=== PATIENT | female | born 1965 | race African-American/Black ===

== ENCOUNTER → 2016-05-18 | Outpatient (CLI) | payer MEDICAID ==
--- NOTE | 2016-05-18 16:25 | WOMENS IMAGING REPORT ---
EXAM DESCRIPTION: BILAT SCREENING MAMMO W/CAD COMPLETED DATE/TIME: 05/18/2016 11:05 am REASON FOR STUDY: Z12.31 ROUTINE SCREENING MAMMO Z12.31 ENCNTR SCREEN MAMMOGRAM FOR MALIGNANT NEOPL ASM OF FORTUNATO COMPARISON: None. TECHNIQUE: Standard craniocaudal and mediolateral oblique views of each breast recorded using Luminescenta l acquisition. LIMITATIONS: None. FINDINGS: No masses, calcifications or architectural distortion. No areas of suspicion. Read with the assistance of CAD. .[facility] - R2 Cenova Version 1.3 .[facility] - R2 Cenova Version 1.3 .[facility] - R2 Cenova Version 2.4 .[facility] [place] Cenova Version 2.4 .[facility] - R2 Animal Care Attendant Version 9.2 BREAST DENSITY: b. There are scattered areas of fibroglandular density. BIRAD: 1 NEGATIVE RECOMMENDATION: ROUTINE SCREENING COMMENT: PATIENT NOTIFIED BY LETTER. The [employer] recommends an annual screening mammogram for women aged 40 years or over. Each patient will receive a reminder prior to the anniversary date of her mammogram. The [employer] (ACR) has developed recommendations for screening MRI of the breast s in certain patient populations, to be used in conjunction with mammography. Breast MRI surveillanc e may be appropriate for women with more than 20% lifetime risk of developing breast cancer as deter mined by genetic testing, significant family history of the disease, or history of mantle radiation f or Hodgkins Disease. ACR Practice Guidelines 2008. TECHNICAL DOCUMENTATION: FINDING NUMBER: (1) ASSESSMENT: (1) JOB ID: [id number] [employer]- All Rights Reserved
== END ==
LOC: WI 10:42
PROVIDERS: ATTEND Internal Medicine
DX: Z12.31 Encounter for screening mammogram for malignant neoplasm of breast (principal)
CPT/HCPCS: 77067; G0202

== ENCOUNTER 2017-06-07 13:09 | Observation (INO) | payer MEDICAID ==
[2017-06-07 14:35] LABS: ABSOLUTE EOSINOPHILS # (AUTO) 0.1 10^3/uL (0.0-0.6); ABSOLUTE LYMPHOCYTES (AUTO) 1.9 10^3/uL (0.5-4.7); ABSOLUTE MONOCYTES (AUTO) 0.7 10^3/uL (0.1-1.4); ABSOLUTE NEUT (AUTO) 3.2 10^3/uL (1.7-8.2); BASOPHILS % (AUTO) 0.6 % (0-2); EOSINOPHILS % (AUTO) 1.2 % (0-6); HEMATOCRIT 39.8 % (36.0-47.0); HEMOGLOBIN 13.1 g/dL (12.0-15.5); LYMPHOCYTES % (AUTO) 31.7 % (13-45); MEAN CORPUSCULAR HEMOGLOBIN 30.7 pg (27.0-33.4); MEAN CORPUSCULAR VOLUME 93 fl (80-97); MONOCYTES % (AUTO) 11.4 % (3-13); PLATELET COUNT 272 10^3/uL (150-450); RED BLOOD COUNT 4.27 10^6/uL (3.72-5.28); RED CELL DISTRIBUTION WIDTH 14.7 % (11.5-14.0); SEGMENTED NEUTROPHILS % (AUTO) 55.1 % (42-78); TOTAL CELLS COUNTED % (AUTO) 100 %; WHITE BLOOD COUNT 5.9 10^3/uL (4.0-10.5)
[2017-06-07 14:52] LABS: ALANINE AMINOTRANSFERASE 30 U/L (9-52); ALBUMIN 4.1 g/dL (3.5-5.0); ALKALINE PHOSPHATASE 90 U/L (38-126); ANION GAP 9 (5-19); ASPARTATE AMINO TRANSFERASE 23 U/L (14-36); BILIRUBIN,DIRECT 0.4 mg/dL (0.0-0.4); BILIRUBIN,TOTAL 0.6 mg/dL (0.2-1.3); BLOOD UREA NITROGEN 11 mg/dL (7-20); CALCIUM 8.9 mg/dL (8.4-10.2); CARBON DIOXIDE 28 mmol/L (22-30); CHLORIDE 103 mmol/L (98-107); CHOLESTEROL 163.25 mg/dL (0-200); GLUCOSE 147 mg/dL (75-110); POTASSIUM 4.2 mmol/L (3.6-5.0); SODIUM 140.3 mmol/L (137-145); TOTAL PROTEIN 7.9 g/dL (6.3-8.2); TRIGLYCERIDES 90 mg/dL (<150)
[2017-06-07 15:05] LABS: DIRECT LDL 105 mg/dL (<100)
[2017-06-07 15:13] LABS: FREE T4 (FREE THYROXINE) 1.53 ng/dL (0.78-2.19)
--- NOTE | 2017-06-07 15:24 | RADIOLOGY REPORT (SQ) ---
EXAM DESCRIPTION: CHEST SINGLE VIEW COMPLETED DATE/TIME: 06/07/2017 3:12 pm REASON FOR STUDY: Admit COMPARISON: CT chest 12/14/2014 EXAM PARAMETERS: NUMBER OF VIEWS: One view. TECHNIQUE: Single frontal radiographic view of the chest acquired. RADIATION DOSE: NA LIMITATIONS: Obese patient, AP portable lordotic technique FINDINGS: LUNGS AND PLEURA: No opacities, masses or pneumothorax. No pleural effusion. MEDIASTINUM AND HILAR STRUCTURES: No masses. Contour normal. HEART AND VASCULAR STRUCTURES: Heart normal in size. Normal vasculature. BONES: No acute findings. HARDWARE: None in the chest. OTHER: No other significant finding. IMPRESSION: NO ACUTE RADIOGRAPHIC FINDING IN THE CHEST. TECHNICAL DOCUMENTATION: JOB ID: [id number] [employer]- All Rights Reserved
[2017-06-07 15:27] LABS: THYROID STIMULATING HORMONE 0.43 uIU/mL (0.47-4.68)
[2017-06-07] MEDS ORDERED: ALBUTEROL SULFATE HFA (90 MCG/PUFF) 200 PUFF/8.5 GM MDI IH PRN (17:44)
[2017-06-07] MEDS ORDERED: (PENDING PHARMACY ID) (Canagliflozin [Invokana] 300 MG) PO SCH (17:45)
[2017-06-07] MEDS ORDERED: ISOSORBIDE MONONITRATE 30 MG TAB.ER.24H PO SCH (18:00)
[2017-06-07] MEDS ORDERED: AMLODIPINE BESYLATE 10 MG TABLET PO SCH (18:00)
[2017-06-07] MEDS ORDERED: ASPIRIN 81 MG TABLET, ENT COATED PO SCH (18:00)
--- NOTE | 2017-06-07 18:22 | EKG REPORT ---
SEVERITY:- ABNORMAL ECG - SINUS RHYTHM MULTIPLE ATRIAL PREMATURE COMPLEXES : Confirmed by: Brad De La Torre MD 07-Jun-2017 18:21:41
[2017-06-07] MEDS ORDERED: TIOTROPIUM BROMIDE DPI 5 CAP/KIT (18 MCG/CAP) IH SCH (19:00)
[2017-06-07 19:39] LABS: APPEARANCE,URINE CLOUDY; BILIRUBIN,URINE NEGATIVE (NEGATIVE); COLOR,URINE YELLOW; GLUCOSE, URINE >=500 mg/dL (NEGATIVE); KETONES,URINE TRACE mg/dL (NEGATIVE); LEUKOCYTE ESTERASE,URINE TRACE (NEGATIVE); NITRITE,URINE NEGATIVE (NEGATIVE); PROTEIN,URINE NEGATIVE (NEGATIVE); URINE SPECIFIC GRAVITY 1.035
[2017-06-07] MEDS ORDERED: ONDANSETRON HCL INJ/PF 4 MG/2 ML SDV ONE (20:40)
[2017-06-07] MEDS: ONDANSETRON HCL INJ/PF 4 MG/2 ML SDV IV PRN (20:40)
[2017-06-07] MEDS ORDERED: INFLUENZA ADLT QUAD (36MOS+) 2017-18 VAC 0.5 ML SYR IM PRN (21:27)
[2017-06-07] MEDS ORDERED: EXENATIDE INJ 10 MCG/0.04 ML 2.4 ML PEN.INJCTR SUBCUT SCH (22:00)
[2017-06-07] MEDS ORDERED: INSULIN DETEMIR 100 UNIT/ML 3 ML PEN SUBCUT SCH (22:00)
[2017-06-07] MEDS: CLOPIDOGREL BISULFATE 75 MG TABLET PO SCH (23:44)
[2017-06-07] MEDS: ATORVASTATIN CALCIUM 80 MG TABLET PO SCH (23:45)
[2017-06-07] MEDS: GABAPENTIN 300 MG CAPSULE PO SCH (23:45)
[2017-06-07] MEDS: METOPROLOL TARTRATE 25 MG TABLET PO SCH (23:46)
[2017-06-07 23:58] LABS: CREATINE KINASE MB 0.42 ng/mL (<4.55)
[2017-06-08 00:01] LABS: TROPONIN I < 0.012 ng/mL
[2017-06-08] MEDS ORDERED: DEXTROSE 40% GEL 15 GM TUBE X 2 PO PRN (00:21)
[2017-06-08] MEDS ORDERED: DEXTROSE 40% GEL 15 GM TUBE PO PRN (00:21)
[2017-06-08] MEDS ORDERED: GLUCAGON,HUMAN RECOMB 1 MG INJ IM PRN (00:21)
[2017-06-08] MEDS ORDERED: DEXTROSE 50%-WATER SYRINGE 25 GM/50 ML DOSE IV PRN (00:21)
[2017-06-08] MEDS ORDERED: DEXTROSE 50%-WATER SYRINGE 12.5 GM/25 ML DOSE IV PRN (00:21)
[2017-06-08] MEDS: GABAPENTIN 300 MG CAPSULE PO SCH ×3 (05:13→21:47)
[2017-06-08 07:32] LABS: CREATINE KINASE MB 0.29 ng/mL (<4.55)
[2017-06-08] MEDS: METFORMIN HCL 500 MG TABLET PO SCH ×2 (07:32→17:22)
[2017-06-08] MEDS: INSULIN DETEMIR 100 UNIT/ML 3 ML PEN SUBCUT SCH (07:33)
[2017-06-08] MEDS: INSULIN LISPRO 100 UNIT/ML 3 ML VIAL SUBCUT PRN ×4 (07:33→21:56)
[2017-06-08 07:34] LABS: TROPONIN I < 0.012 ng/mL
[2017-06-08] MEDS: ONDANSETRON HCL INJ/PF 4 MG/2 ML SDV IV PRN ×2 (09:15→17:21)
[2017-06-08] MEDS: ISOSORBIDE MONONITRATE 30 MG TAB.ER.24H PO SCH (10:31)
[2017-06-08] MEDS: ONDANSETRON HCL 8 MG TABLET PO SCH (10:31)
[2017-06-08] MEDS: AMLODIPINE BESYLATE 10 MG TABLET PO SCH (10:31)
[2017-06-08] MEDS: MULTIVITAMIN TABLET PO SCH (10:31)
[2017-06-08] MEDS: METOPROLOL TARTRATE 25 MG TABLET PO SCH ×2 (10:31→21:52)
[2017-06-08] MEDS: EXENATIDE INJ 10 MCG/0.04 ML 2.4 ML PEN.INJCTR SUBCUT SCH (10:31)
[2017-06-08] MEDS: TIOTROPIUM BROMIDE DPI 5 CAP/KIT (18 MCG/CAP) IH SCH (12:41)
[2017-06-08 16:38] LABS: CREATINE KINASE MB 0.34 ng/mL (<4.55); TROPONIN I < 0.012 ng/mL
[2017-06-08] MEDS ORDERED: LOPERAMIDE HCL 2 MG CAPSULE PO PRN (19:26)
--- NOTE | 2017-06-08 20:49 | PDOC H&P ---
History of Present Illness Admission Date/PCP: 06/07/17 13:18 MART BELTRAN MD History of Present Illness: JULIEN KRAFT is a 51 year old female, She came to the office for follow-up, she complained of left sided chest pain with radiation to the left upper extremities , in the office a 12-lead EKG was done it was normal sinus rhythm there was no definitive ST T-segment deviation to suggest ischemia. She has multiple risk factors for ischemic heart disease, because the symptoms she manifested was suspicious for ischemic heart disease she was admitted directly from the office into the hospital. These symptoms does not suggest unstable angina, 3 sets of cardiac enzymes are negative for acute AK but she we need a stress test for further evaluation of her symptoms. Past Medical History Cardiac Medical History: Reports: DVT, Hypertension Pulmonary Medical History: Reports: Sleep Apnea Endocrine Medical History: Reports: Diabetes Mellitus Type 2 - Insulin-dependent , Obesity GI Medical History: Reports: Gastroesophageal Reflux Disease Musculoskeltal Medical History: Reports: Arthritis Infectious Medical History: Denies: Clostridium Difficile, HIV, Methicillin-Resistant Staph Aureus, Vancomycin-Resistant Enterococci Past Surgical History Past Surgical History: Reports: Cardiac Catheterization, Tubal Ligation Social History Smoking Status: Never Smoker Frequency of Alcohol Use: None Hx Recreational Drug Use: No Hx Prescription Drug Abuse: No Family History Family History: Reviewed & Not Pertinent Parental Family History Reviewed: Yes Children Family History Reviewed: Yes Sibling(s) Family History Reviewed.: Yes Medication/Allergy Home Medications: Albuterol Sulfate [Proair Hfa Inhalation Aerosol 8.5 gm Mdi] 2 puff IH Q6HP PRN 06/07/17 Amlodipine Besylate [Norvasc 10 mg Tablet] 10 mg PO DAILY 06/07/17 Aspirin [Ecotrin 81 mg EC Tablet] 81 mg PO DAILY 06/07/17 Atorvastatin Calcium [Lipitor 80 mg Tablet] 80 mg PO QHS 06/07/17 Canagliflozin [Invokana] 300 mg PO DAILY 06/07/17 Cider Vinegar [Apple Cider Vinegar 500 mg Tablet] 1 tab PO DAILY 06/07/17 Clopidogrel Bisulfate [Plavix 75 mg Tablet] 75 mg PO DAILY 06/07/17 Exenatide [Byetta Inj 10 Mcg/0.04 ml 2.4 ml Pen.injctr] 10 mcg SUBCUT DAILY Gabapentin [Neurontin 300 mg Capsule] 300 mg PO Q8 06/07/17 Insulin Detemir [Levemir Insulin 300 Units/3 ml Insuln.pen] 10 unit SUBCUT DAILY 06/07/17 Insulin Glargine,Hum.rec.anlog [Lantus Insulin 100 Unit/1 ml 10 ml] 100 unit SUBCUT DAILY 06/07/17 Isosorbide Mononitrate [Isosorbide Mononitrate ER] 30 mg PO DAILY 06/07/17 Metformin HCl [Glucophage] 1,000 mg PO BID 06/07/17 Metoprolol Tartrate [Lopressor 25 mg Tablet] 25 mg PO Q12 06/07/17 Multivitamin [Tab-A-Art] 1 each PO DAILY 06/07/17 Ondansetron HCl [Zofran 4 mg Tablet] 8 mg PO DAILY 06/07/17 Tiotropium [place] [Spiriva Handihaler 18 mcg/dose (30 Dose)] 1 cap IH DAILY Allergies/Adverse Reactions: metformin [Metformin] Allergy (Verified 07/18/14 14:07) Diarrhea cillins Allergy (Uncoded 07/18/14 14:07) Vomiting Review of Systems Constitutional: ABSENT: chills, fever(s), headache(s), weight gain, weight loss Eyes: ABSENT: visual disturbances Ears: ABSENT: hearing changes Cardiovascular: PRESENT: chest pain Respiratory: ABSENT: cough, hemoptysis Gastrointestinal: PRESENT: diarrhea Genitourinary: ABSENT: dysuria, hematuria Musculoskeletal: ABSENT: joint swelling Integumentary: ABSENT: rash, wounds Neurological: ABSENT: abnormal gait, abnormal speech, confusion, dizziness, focal weakness, syncope Psychiatric: ABSENT: anxiety, depression, homidical ideation, suicidal ideation Endocrine: ABSENT: cold intolerance, heat intolerance, menstrual abnormalities, polydipsia, polyuria Hematologic/Lymphatic: ABSENT: easy bleeding, easy bruising, lymphadenopathy Physical Exam Vital Signs: Temp Pulse Resp BP Pulse Ox 98.3 F 88 17 112/62 98 06/08/17 15:59 06/08/17 15:59 06/08/17 15:59 06/08/17 15:59 06/08/17 15:59 Intake & Output 06/07/17 06/08/17 06/09/17 06:59 06:59 06:59 Intake Total 450 432 Output Total 0 Balance 450 432 Weight 155.3 kg 155.3 kg General appearance: PRESENT: no acute distress, well-developed, well-nourished Head exam: PRESENT: atraumatic, normocephalic Eye exam: PRESENT: conjunctiva pink, EOMI, PERRLA Ear exam: PRESENT: normal external ear exam Mouth exam: PRESENT: moist, tongue midline Neck exam: PRESENT: full ROM Respiratory exam: PRESENT: clear to auscultation dexter Cardiovascular exam: PRESENT: RRR, +S1, +S2 Vascular exam: PRESENT: normal capillary refill GI/Abdominal exam: PRESENT: normal bowel sounds, soft Rectal exam: PRESENT: deferred Neurological exam: PRESENT: alert, awake, oriented to person, oriented to place , oriented to time, oriented to situation, CN II-XII grossly intact Skin exam: PRESENT: dry, intact, warm Results Laboratory Results: 06/07/17 14:13 06/07/17 14:13 06/07/17 06/07/17 06/07/17 14:13 22:51 22:51 Creatine Kinase 178 H CK-MB (CK-2) 0.42 Troponin I < 0.012 NT-Pro-B Natriuret Pep 48 06/08/17 06/08/17 06/08/17 06:46 06:46 15:35 Creatine Kinase 168 H 167 H CK-MB (CK-2) 0.29 Troponin I < 0.012 NT-Pro-B Natriuret Pep 06/08/17 15:35 Creatine Kinase CK-MB (CK-2) 0.34 Troponin I < 0.012 NT-Pro-B Natriuret Pep Impressions: Chest X-Ray 06/07/17 14:01 IMPRESSION: NO ACUTE RADIOGRAPHIC FINDING IN THE CHEST. 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
[2017-06-08] MEDS: INSULIN GLARGINE,HUM.REC.ANLOG 1,000 UNIT/10 ML UNIT SUBCUT SCH (21:46)
[2017-06-08] MEDS: CLOPIDOGREL BISULFATE 75 MG TABLET PO SCH (21:47)
[2017-06-08] MEDS: ATORVASTATIN CALCIUM 80 MG TABLET PO SCH (21:47)
[2017-06-08] MEDS: ASPIRIN 81 MG TABLET, ENT COATED PO SCH (21:47)
[2017-06-08] MEDS ORDERED: INSULIN GLARGINE,HUM.REC.ANLOG 1,000 UNIT/10 ML UNIT SUBCUT SCH (22:00)
[2017-06-09] MEDS: GABAPENTIN 300 MG CAPSULE PO SCH ×3 (05:49→22:14)
[2017-06-09] MEDS: EXENATIDE INJ 10 MCG/0.04 ML 2.4 ML PEN.INJCTR SUBCUT SCH (10:23)
[2017-06-09] MEDS: METFORMIN HCL 500 MG TABLET PO SCH ×2 (10:23→16:32)
[2017-06-09] MEDS: INSULIN DETEMIR 100 UNIT/ML 3 ML PEN SUBCUT SCH (10:23)
[2017-06-09] MEDS: ISOSORBIDE MONONITRATE 30 MG TAB.ER.24H PO SCH (10:24)
[2017-06-09] MEDS: ONDANSETRON HCL 8 MG TABLET PO SCH (10:24)
[2017-06-09] MEDS: MULTIVITAMIN TABLET PO SCH (10:24)
[2017-06-09] MEDS: AMLODIPINE BESYLATE 10 MG TABLET PO SCH (10:24)
[2017-06-09] MEDS: METOPROLOL TARTRATE 25 MG TABLET PO SCH ×2 (10:26→22:15)
[2017-06-09 11:40] LABS: CREATININE URINE 80.3 mg/dL (Not Estab.); MICROALBUMIN URINE 20.9 ug/mL (Not Estab.)
[2017-06-09] MEDS: TIOTROPIUM BROMIDE DPI 5 CAP/KIT (18 MCG/CAP) IH SCH (13:03)
[2017-06-09] MEDS: ACETAMINOPHEN 325 MG TABLET PO PRN ×2 (13:30→20:03)
[2017-06-09] MEDS: INSULIN LISPRO 100 UNIT/ML 3 ML VIAL SUBCUT PRN ×2 (13:30→18:28)
[2017-06-09] MEDS ORDERED: FLUCONAZOLE 100 MG TABLET PO ONE (14:00)
[2017-06-09] MEDS ORDERED: AMINOPHYLLINE INJ/PF 250 MG/10 ML SDV IV ONE (14:00)
[2017-06-09] MEDS ORDERED: REGADENOSON INJ 0.4 MG/5 ML DISP.SYRIN IV ONE (14:00)
[2017-06-09] MEDS ORDERED: LANSOPRAZOLE 30 MG TAB.RAP.DR PO ONE (17:00)
[2017-06-09] MEDS: ASPIRIN 81 MG TABLET, ENT COATED PO SCH (22:14)
[2017-06-09] MEDS: ATORVASTATIN CALCIUM 80 MG TABLET PO SCH (22:14)
[2017-06-09] MEDS: CLOPIDOGREL BISULFATE 75 MG TABLET PO SCH (22:15)
[2017-06-09] MEDS: INSULIN GLARGINE,HUM.REC.ANLOG 1,000 UNIT/10 ML UNIT SUBCUT SCH (22:22)
[2017-06-10] MEDS: GABAPENTIN 300 MG CAPSULE PO SCH ×3 (05:44→22:05)
[2017-06-10] MEDS ORDERED: LANSOPRAZOLE 30 MG TAB.RAP.DR PO SCH (06:00)
--- NOTE | 2017-06-10 08:45 | EKG REPORT ---
SEVERITY:- ABNORMAL ECG - SINUS RHYTHM ST ELEVATION, PRE-EXISTING, LIKELY NORMAL VARIANT, CLINICAL CORRELATION NEEDED. : Confirmed by: Brad De La Torre MD 10-Jun-2017 08:45:20
[2017-06-10] MEDS: METFORMIN HCL 500 MG TABLET PO SCH ×2 (08:53→17:46)
[2017-06-10] MEDS: INSULIN DETEMIR 100 UNIT/ML 3 ML PEN SUBCUT SCH (08:53)
[2017-06-10] MEDS: INSULIN LISPRO 100 UNIT/ML 3 ML VIAL SUBCUT PRN ×2 (09:05→11:55)
[2017-06-10] MEDS: AMLODIPINE BESYLATE 10 MG TABLET PO SCH (11:53)
[2017-06-10] MEDS: ISOSORBIDE MONONITRATE 30 MG TAB.ER.24H PO SCH (11:54)
[2017-06-10] MEDS: MULTIVITAMIN TABLET PO SCH (11:54)
[2017-06-10] MEDS: FLUCONAZOLE 100 MG TABLET PO SCH (11:54)
[2017-06-10] MEDS: ONDANSETRON HCL 8 MG TABLET PO SCH (11:54)
[2017-06-10] MEDS: TIOTROPIUM BROMIDE DPI 5 CAP/KIT (18 MCG/CAP) IH SCH (11:55)
[2017-06-10] MEDS: METOPROLOL TARTRATE 25 MG TABLET PO SCH (11:55)
[2017-06-10] MEDS: EXENATIDE INJ 10 MCG/0.04 ML 2.4 ML PEN.INJCTR SUBCUT SCH (11:55)
--- NOTE | 2017-06-10 12:01 | DRAGON STRESS TEST REPORT ---
INTRAVENOUS LEXISCAN CARDIOLITE STRESS TEST USING SINGLE PHOTON EMMISION COMPUTERIZED TOMOGRAPHIC. DATE OF PROCEDURE: June 09, 2017, INDICATION : Chest pain CARDIAC RISK FACTORS: Diabetes, hypertension, dyslipidemia RESTING EKG: Sinus rhythm without any baseline ST-T wave changes STRESS EKG: No significant changes noted with LexiScan bolus REASON FOR TERMINATION: Protocol. PROCEDURE REPORT: Baseline heart rate 88 beats per minute with blood pressure of 109/84. Patient had no significant complaints. Heart rate at 2 minutes post bolus 100 with a blood pressure of 124/77. 3 minutes post bolus heart rate 97 with blood pressure of 130/78. No significant EKG changes were noted. Patient had no significant complaints during the procedure or postprocedure. Patient injected with Aminophyllin 75 mg at 3 minutes or later after Lexiscan bolus. CONCLUSIONS: Normal EKG and hemodynamic response to IV LexiScan. NUCLEAR DATA: 2 day protocol, stress/rest imaging with stress imaging on day 1 and rest imaging on day 2. At rest the patient was given 40.4 millicuries of technetium 99 sestamibi injected intravenously. As per protocol rest gated SPECT images were obtained. On day of stress test, the patient was given intravenous LexiScan at a dose of 0.4 mg in 5 mL intravenously, followed by flush with normal saline. Subsequently the stress dose of 38.2 millicuries of technetium 99 sestamibi was injected intravenously. As per protocol stress gated images were obtained. NUCLEAR INTERPRETATION: Both raw and processed data were used for interpretation. Visual, qualitative, computer-generated quantitative data was used. There was poor myocardial uptake of technetium compound. Motion artifact and soft tissue attenuations were noted. Marked increased liver activity was noted. In addition there was marked increased breast and other soft tissue attenuation. Decreased uptake noted in the inferior wall and also mid anterior wall these are somewhat more pronounced in the stress imaging as compared to rest imaging but there were no corresponding wall motion abnormalities noted on gated imaging. Overall confidence in the test is on the low side. EKG gated imaging showed LV EF at 60 %, rest and stress gated EF similar visually. T. I D. ratio was 1.05. Lung heart ratio noted to be within normal limits 0.22. No significant extracardiac and abnormal radiotracer activities were noted. RV free wall uptake was noted to be WNL. IMPRESSION: Also refer to comments under nuclear interpretation. Also test results needs to be interpreted in the context of pretest probability. 1. Decreased uptake noted in the inferior wall and also mid anterior wall, these are somewhat more pronounced in the stress imaging as compared to rest imaging but there were no corresponding wall motion abnormalities noted on gated imaging. Overall confidence in the test is on the low side. Cannot rule out areas of mild ischemia in the inferior wall more so than probable mild ischemia mid anterior wall. 2. There is no definitive scintigraphic evidence of myocardial infarction/scar. 3. EKG gated imaging shows left ventricular ejection fraction of approx. 60 %. No definite regional wall motion normality is noted. 4. Clinical correlation requested as occasionally single vessel disease or balanced ischemia could be missed. In approximately 10% of the cases Lexiscan may not cause adequate vasodilatory stress. RECOMMENDATIONS: Aggressive risk factor modification and medical management. Further evaluation may be needed if continued symptoms or other high risk indicators are noted on clinical evaluation. May consider further evaluation with either a MRI stress test, positron emission tomography stress test or even a heart catheterization if clinically indicated. Close cardiology follow-up is also recommended. Clinical correlation with echocardiogram derived ejection fraction. Inability to exercise by itself can lead to increased cardiovascular event risks. Consider cardiology consultation and or follow-up if clinically indicated. I am available for cardiology evaluation and consultation if requested by the director of litigation, unless patient already has a spray gun striper. MELISSA
--- NOTE | 2017-06-10 14:33 | PDOC CONSULTATION ---
Consultation Consult Date: 06/10/17 Attending physician:: MART BELTRAN Consult reason:: Chest pain History of Present Illness Admission Date/PCP: 06/07/17 13:18 MART BELTRAN MD Patient complains of: Chest pain History of Present Illness: JULIEN KRAFT is a 51 year old female, She came to the office for follow-up, she complained of left sided chest pain with radiation to the left upper extremities , in the office a 12-lead EKG was done it was normal sinus rhythm there was no definitive ST T-segment deviation to suggest ischemia. She has multiple risk factors for ischemic heart disease, because the symptoms she manifested was suspicious for ischemic heart disease she was admitted directly from the office into the hospital. These symptoms does not suggest unstable angina, 3 sets of cardiac enzymes are negative for acute IA but she we need a stress test for further evaluation of her symptoms. This history was reviewed and confirmed. Patient does describe exertional chest pain. She did have a nuclear stress test which was difficult to interpret because of patient's body habitus and morbid obesity. Low confidence in nuclear stress test. Patient describes history of known coronary artery disease having had a heart catheterization within the last 2 years at [facility] and claims to have had a plain old balloon angioplasty. A stent was not placed at that time as the blood vessel was noted to be small to accommodate a stent. I have asked for that report to be made available in the chart today. Past Medical History Cardiac Medical History: Reports: Congestive Heart Failure, DVT, Hypertension Pulmonary Medical History: Reports: Sleep Apnea Endocrine Medical History: Reports: Diabetes Mellitus Type 2 - Insulin-dependent , Obesity GI Medical History: Reports: Gastroesophageal Reflux Disease Musculoskeltal Medical History: Reports: Arthritis Psychiatric Medical History: Denies: Depression Hematology: Denies: Anemia, Sickle Cell Disease Infectious Medical History: Denies: Clostridium Difficile, HIV, Methicillin-Resistant Staph Aureus, Vancomycin-Resistant Enterococci Past Surgical History Past Surgical History: Reports: Cardiac Catheterization - Patient describes balloon angioplasty., Tubal Ligation Social History Information Source: Patient Smoking Status: Never Smoker Frequency of Alcohol Use: None Hx Recreational Drug Use: No Hx Prescription Drug Abuse: No - Advance Directive Resuscitation Status: Full Code Family History Family History: Hypertension Parental Family History Reviewed: Yes Children Family History Reviewed: Yes Sibling(s) Family History Reviewed.: Yes Medication/Allergy Home Medications: Albuterol Sulfate [Proair Hfa Inhalation Aerosol 8.5 gm Mdi] 2 puff IH Q6HP PRN 06/07/17 Amlodipine Besylate [Norvasc 10 mg Tablet] 10 mg PO DAILY 06/07/17 Aspirin [Ecotrin 81 mg EC Tablet] 81 mg PO DAILY 06/07/17 Atorvastatin Calcium [Lipitor 80 mg Tablet] 80 mg PO QHS 06/07/17 Canagliflozin [Invokana] 300 mg PO DAILY 06/07/17 Cider Vinegar [Apple Cider Vinegar 500 mg Tablet] 1 tab PO DAILY 06/07/17 Clopidogrel Bisulfate [Plavix 75 mg Tablet] 75 mg PO DAILY 06/07/17 Exenatide [Byetta Inj 10 Mcg/0.04 ml 2.4 ml Pen.injctr] 10 mcg SUBCUT DAILY Gabapentin [Neurontin 300 mg Capsule] 300 mg PO Q8 06/07/17 Insulin Detemir [Levemir Insulin 300 Units/3 ml Insuln.pen] 10 unit SUBCUT DAILY 06/07/17 Insulin Glargine,Hum.rec.anlog [Lantus Insulin 100 Unit/1 ml 10 ml] 100 unit SUBCUT DAILY 06/07/17 Isosorbide Mononitrate [Isosorbide Mononitrate ER] 30 mg PO DAILY 06/07/17 Metformin HCl [Glucophage] 1,000 mg PO BID 06/07/17 Metoprolol Tartrate [Lopressor 25 mg Tablet] 25 mg PO Q12 06/07/17 Multivitamin [Tab-A-Art] 1 each PO DAILY 06/07/17 Ondansetron HCl [Zofran 4 mg Tablet] 8 mg PO DAILY 06/07/17 Tiotropium [place] [Spiriva Handihaler 18 mcg/dose (30 Dose)] 1 cap IH DAILY Allergies/Adverse Reactions: metformin [Metformin] Allergy (Verified 07/18/14 14:07) Diarrhea cillins Allergy (Uncoded 07/18/14 14:07) Vomiting Review of Systems Review of Systems: Please see history of present illness and past medical history as wall. Constitutional: No fever or chills reported. Head : No recent chronic headaches, recent head injury. Eyes: No recent eye pain, diplopia, redness, discharge, acute visual changes. Ears: No recent chronic ear pain, acute hearing loss, ear discharge. Oral cavity: No recent ulcerations, bleeding, oral cavity discomfort. Neck: No recent acute neck pain reported. Hematologic: No recent easy bruising or bleeding or hematologic malignancy reported. Lymphatic: No recent lymphatic malignancy, chronic lymphadenopathy reported yet Cardiovascular system review: See history of present illness. Respiratory system review: No recent chronic cough, hemoptysis, blood clots in the lungs reported. Mild Shortness of breath on exertion Gastrointestinal system review: Negative for any recent acute or chronic abdominal pain, hematemesis, melena, recent change in bowel habits. Genitourinary system review: No recent acute or chronic hematuria, flank pain, UTI etc. reported. Skin system review: Negative for any recent abnormal bruising, no rash, no pruritus reported. Neurologic: No prior history of strokes, mini strokes, seizure disorder. Psychologic: No history of major psychosis or major depression reported. Musculoskeletal: Minor aches and pains reported. No acute joint swelling reported. Endocrine: No recent polyuria, polydipsia, recent heat or cold intolerance. Physical Exam Vital Signs: Temp Pulse Resp BP Pulse Ox 98.6 F 81 20 143/85 H 100 06/10/17 11:44 06/10/17 11:44 06/10/17 11:44 06/10/17 11:44 06/10/17 11:44 Intake & Output 06/09/17 06/10/17 06/11/17 06:59 06:59 06:59 Intake Total 832 1047 100 Output Total 0 Balance 832 1047 100 Weight 154.6 kg 158 kg Exam: GENERAL: well-nourished and in no acute distress. Alert and oriented x3 HEAD: Atraumatic, normocephalic. EYES: Pupils equal round and reactive to light, extraocular movements intact, sclera anicteric, conjunctiva are normal. ENT: TMs normal, nares patent, oropharynx clear without exudates. Moist mucous membranes. No oral ulcerations or bleeding gums noted NECK: supple without lymphadenopathy. Trachea is central. No cervical or axillary lymphadenopathy noted. Carotids are 2+, JVD WNL LUNGS: Respiration seems nonlabored, no significant accessory muscle action noted. Breath sounds clear to auscultation bilaterally and equal noted. No wheezes rales or rhonchi noted. No significant dullness noted on percussion. CHEST: Palpation of the chest wall shows no significant chest wall tenderness. No other significant abnormalities noted. 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 ABDOMEN: Soft, no significant tenderness appreciated, normoactive bowel sounds. No guarding, no rebound. No rigidity noted . No masses appreciated. EXTREMITIES: Pedal pulses are 1-2+, no calf tenderness noted. No clubbing or cyanosis.trace to 1+ pedal edema noted NEUROLOGICAL: Focused neurological exam showed no significant neurologic deficit. Normal speech, no focal weakness appreciated. PSYCH: Normal mood, normal affect. Judgment and insight within normal limits. SKIN: No significant ecchymosis, rash, ulcerations or signs of pruritus noted. MUSCULOSKELETAL EXAM: No significant joint swelling noted. Results Laboratory Results: 06/07/17 14:13 06/07/17 14:13 06/07/17 06/07/17 06/07/17 14:13 22:51 22:51 Creatine Kinase 178 H CK-MB (CK-2) 0.42 Troponin I < 0.012 NT-Pro-B Natriuret Pep 48 06/08/17 06/08/17 06/08/17 06:46 06:46 15:35 Creatine Kinase 168 H 167 H CK-MB (CK-2) 0.29 Troponin I < 0.012 NT-Pro-B Natriuret Pep 06/08/17 15:35 Creatine Kinase CK-MB (CK-2) 0.34 Troponin I < 0.012 NT-Pro-B Natriuret Pep EKG Comments: Twelve-lead EKG is reviewed. Showed sinus rhythm, no acute ST-T wave changes were noted. Impressions: Chest X-Ray 06/07/17 14:01 IMPRESSION: NO ACUTE RADIOGRAPHIC FINDING IN THE CHEST. Assessment & Plan - Diagnosis (1) Chest pain Qualifiers: Chest pain type: unspecified Qualified Code(s): R07.9 - Chest pain, unspecified Is this a current diagnosis for this admission?: Yes (2) Obstructive sleep apnea syndrome Is this a current diagnosis for this admission?: Yes (3) Diabetes mellitus Qualifiers: Diabetes mellitus type: type 2 Diabetes mellitus complication status: with neurologic complications Diabetes mellitus complication detail: with polyneuropathy Diabetes mellitus buttermaker continuous churn insulin use: without buttermaker continuous churn use Qualified Code(s): E11.42 - Type 2 diabetes mellitus with diabetic polyneuropathy Is this a current diagnosis for this admission?: Yes (4) GERD (gastroesophageal reflux disease) Qualifiers: Esophagitis presence: without esophagitis Qualified Code(s): K21.9 - Gastro -esophageal reflux disease without esophagitis Is this a current diagnosis for this admission?: Yes (5) HLD (hyperlipidemia) Qualifiers: Hyperlipidemia type: pure hyperglyceridemia Qualified Code(s): E78.1 - Pure hyperglyceridemia Is this a current diagnosis for this admission?: Yes (6) HTN (hypertension) Qualifiers: Hypertension type: essential hypertension Qualified Code(s): I10 - Essential (primary) hypertension Is this a current diagnosis for this admission?: Yes (7) Morbid obesity Is this a current diagnosis for this admission?: Yes - Notes Notes: Chest pain: Patient describes exertional chest pain. She has known history of coronary artery disease. Nuclear stress test equivocal for ruling out any ischemia. At this point feel that patient may benefit from a heart catheterization. In the meantime will optimize medical management of CAD. For risk stratification have ordered a 2D echo. Obstructive sleep apnea syndrome: Patient currently not on CPAP therapy. Patient claims that she was tested about 10 years ago but never really got onto CPAP therapy. Patient will benefit from a repeat sleep study and institution of CPAP therapy. Diabetes: Currently under satisfactory management. Gastroesophageal reflux disease: Currently stable. Will optimize therapy. Dyslipidemia: Continue high potency statin therapy. Hypertension: Recommend good control of blood pressure. Blood pressure goal should be 135/85 or less. Morbid obesity: Patient will benefit from weight loss. She was considered for obesity surgery but was turned down because of coronary artery disease and also because of excess weight. - Time Time Spent: 30 to 50 Minutes - More than 50% of the time spent coordinating care , discussing management plans with involved caregivers. Management plans discussed with involved personnels. Medical decision making was of moderate to high complexity, patient's has multiple comorbidities. Medications reviewed and adjusted accordingly: Yes
--- NOTE | 2017-06-10 17:00 | PDOC PROGRESS REPORT ---
Subjective Progress Note for:: 06/10/17 Subjective:: Patient was admitted for observation and for evaluation of chest symptoms, the chest pain syndrome was suspicious for ischemic chest pain, a stress test was done but it was not interpretable because of her body habitus, consultation is not requested from cardiology, Dr. Moon. Reason For Visit: CHEST PAIN Physical Exam Vital Signs: Temp Pulse Resp BP Pulse Ox 98.6 F 81 20 143/85 H 100 06/10/17 11:44 06/10/17 11:44 06/10/17 11:44 06/10/17 11:44 06/10/17 11:44 Intake & Output 06/09/17 06/10/17 06/11/17 06:59 06:59 06:59 Intake Total 832 1047 100 Output Total 0 Balance 832 1047 100 Weight 154.6 kg 158 kg General appearance: PRESENT: no acute distress Eye exam: PRESENT: PERRLA Respiratory exam: PRESENT: clear to auscultation dexter Cardiovascular exam: PRESENT: +S1, +S2 GI/Abdominal exam: PRESENT: soft Neurological exam: PRESENT: alert Results Laboratory Results: 06/07/17 14:13 06/07/17 14:13 06/07/17 06/07/17 06/07/17 14:13 22:51 22:51 Creatine Kinase 178 H CK-MB (CK-2) 0.42 Troponin I < 0.012 NT-Pro-B Natriuret Pep 48 06/08/17 06/08/17 06/08/17 06:46 06:46 15:35 Creatine Kinase 168 H 167 H CK-MB (CK-2) 0.29 Troponin I < 0.012 NT-Pro-B Natriuret Pep 06/08/17 15:35 Creatine Kinase CK-MB (CK-2) 0.34 Troponin I < 0.012 NT-Pro-B Natriuret Pep Impressions: Chest X-Ray 06/07/17 14:01 IMPRESSION: NO ACUTE RADIOGRAPHIC FINDING IN THE CHEST. 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
[2017-06-10] MEDS: LANSOPRAZOLE 30 MG TAB.RAP.DR PO SCH (17:46)
[2017-06-10] MEDS ORDERED: METOPROLOL SUCCINATE 25 MG TAB.SR.24H PO SCH (22:00)
[2017-06-10] MEDS: ASPIRIN 81 MG TABLET, ENT COATED PO SCH (22:05)
[2017-06-10] MEDS: CLOPIDOGREL BISULFATE 75 MG TABLET PO SCH (22:05)
[2017-06-10] MEDS: RANOLAZINE 500 MG TAB.SR.12H PO SCH (22:05)
[2017-06-10] MEDS: ATORVASTATIN CALCIUM 80 MG TABLET PO SCH (22:06)
[2017-06-10] MEDS: METOPROLOL SUCCINATE 50 MG TAB.SR.24H PO SCH (22:06)
[2017-06-10] MEDS: INSULIN GLARGINE,HUM.REC.ANLOG 1,000 UNIT/10 ML UNIT SUBCUT SCH (22:14)
[2017-06-11] MEDS: GABAPENTIN 300 MG CAPSULE PO SCH ×3 (05:57→22:32)
[2017-06-11] MEDS: LANSOPRAZOLE 30 MG TAB.RAP.DR PO SCH ×2 (05:57→17:48)
[2017-06-11] MEDS: INSULIN DETEMIR 100 UNIT/ML 3 ML PEN SUBCUT SCH (07:46)
[2017-06-11] MEDS: METFORMIN HCL 500 MG TABLET PO SCH ×2 (07:46→17:48)
[2017-06-11] MEDS: INSULIN LISPRO 100 UNIT/ML 3 ML VIAL SUBCUT PRN ×3 (07:52→17:48)
[2017-06-11] MEDS: RANOLAZINE 500 MG TAB.SR.12H PO SCH ×2 (09:37→22:32)
[2017-06-11] MEDS: ONDANSETRON HCL 8 MG TABLET PO SCH (09:37)
[2017-06-11] MEDS: AMLODIPINE BESYLATE 10 MG TABLET PO SCH (09:37)
[2017-06-11] MEDS: MULTIVITAMIN TABLET PO SCH (09:37)
[2017-06-11] MEDS: FLUCONAZOLE 100 MG TABLET PO SCH (09:38)
[2017-06-11] MEDS: METOPROLOL SUCCINATE 50 MG TAB.SR.24H PO SCH ×2 (09:38→22:33)
[2017-06-11] MEDS: ISOSORBIDE MONONITRATE 30 MG TAB.ER.24H PO SCH (09:39)
[2017-06-11] MEDS: EXENATIDE INJ 10 MCG/0.04 ML 2.4 ML PEN.INJCTR SUBCUT SCH (09:39)
[2017-06-11] MEDS: TIOTROPIUM BROMIDE DPI 5 CAP/KIT (18 MCG/CAP) IH SCH (11:05)
--- NOTE | 2017-06-11 11:36 | PDOC TRANSFER SUMMARY ---
General Admission Date/PCP: 06/07/17 13:18 MART BELTRAN MD Transfer Date: 06/11/17 Accepting Facility: [facility] Resuscitation Status: Full Code - Transfer Diagnosis (1) Chest pain Is this a current diagnosis for this admission?: Yes (2) Obstructive sleep apnea syndrome Is this a current diagnosis for this admission?: Yes (3) Diabetes mellitus Is this a current diagnosis for this admission?: Yes (4) GERD (gastroesophageal reflux disease) Is this a current diagnosis for this admission?: Yes (5) HLD (hyperlipidemia) Is this a current diagnosis for this admission?: Yes (6) Morbid obesity Is this a current diagnosis for this admission?: Yes (7) Hoarseness of voice Is this a current diagnosis for this admission?: Yes - Transfer Medications Home Medications: Albuterol Sulfate [Proair Hfa Inhalation Aerosol 8.5 gm Mdi] 2 puff IH Q6HP PRN 06/07/17 Amlodipine Besylate [Norvasc 10 mg Tablet] 10 mg PO DAILY 06/07/17 Aspirin [Ecotrin 81 mg EC Tablet] 81 mg PO DAILY 06/07/17 Atorvastatin Calcium [Lipitor 80 mg Tablet] 80 mg PO QHS 06/07/17 Canagliflozin [Invokana] 300 mg PO DAILY 06/07/17 Cider Vinegar [Apple Cider Vinegar 500 mg Tablet] 1 tab PO DAILY 06/07/17 Clopidogrel Bisulfate [Plavix 75 mg Tablet] 75 mg PO DAILY 06/07/17 Exenatide [Byetta Inj 10 Mcg/0.04 ml 2.4 ml Pen.injctr] 10 mcg SUBCUT DAILY Gabapentin [Neurontin 300 mg Capsule] 300 mg PO Q8 06/07/17 Insulin Detemir [Levemir Insulin 300 Units/3 ml Insuln.pen] 10 unit SUBCUT DAILY 06/07/17 Insulin Glargine,Hum.rec.anlog [Lantus Insulin 100 Unit/1 ml 10 ml] 100 unit SUBCUT DAILY 06/07/17 Isosorbide Mononitrate [Isosorbide Mononitrate ER] 30 mg PO DAILY 06/07/17 Metformin HCl [Glucophage] 1,000 mg PO BID 06/07/17 Metoprolol Tartrate [Lopressor 25 mg Tablet] 25 mg PO Q12 06/07/17 Multivitamin [Tab-A-Art] 1 each PO DAILY 06/07/17 Ondansetron HCl [Zofran 4 mg Tablet] 8 mg PO DAILY 06/07/17 Tiotropium [place] [Spiriva Handihaler 18 mcg/dose (30 Dose)] 1 cap IH DAILY Transfer Medications: Current Medications Acetaminophen (Tylenol 325 Mg Tablet) 650 mg PO Q4HP PRN PRN Reason: PAIN Stop: 07/09/17 13:12 Last Admin: 06/09/17 20:03 Dose: 650 mg Albuterol (Proair Hfa Inhalation Aerosol 8.5 Gm Mdi) 2 puff IH Q6HP PRN PRN Reason: SHORTNESS OF BREATH Stop: 07/07/17 17:43 Amlodipine Besylate (Norvasc 10 Mg Tablet) 10 mg PO DAILY [facility] Stop: 07/07/17 17:59 Last Admin: 06/11/17 09:37 Dose: 10 mg Aspirin (Ecotrin 81 Mg Ec Tablet) 81 mg PO QHS JOHN Stop: 07/07/17 17:59 Last Admin: 06/10/17 22:05 Dose: 81 mg Atorvastatin Calcium (Lipitor 80 Mg Tablet) 80 mg PO QHS JOHN Stop: 07/07/17 21:59 Last Admin: 06/10/17 22:06 Dose: 80 mg Azithromycin (Zithromax 250 Mg Tablet) 500 mg PO DAILY [facility] Stop: 06/19/17 09:59 Azithromycin (Zithromax 250 Mg Tablet) 500 mg PO NOW ONE Stop: 06/11/17 12:01 Clopidogrel Bisulfate (Plavix 75 Mg Tablet) 75 mg PO QHS JOHN Stop: 07/07/17 17:59 Last Admin: 06/10/17 22:05 Dose: 75 mg Dextrose (Dextrose Inj 50% Syringe (25 Gm/50 Ml)) 12.5 gm IV PRN PRN; Protocol PRN Reason: FOR BG 50-69 IN ALERT PATIENT Stop: 07/08/17 00:20 Dextrose (Dextrose Inj 50% Syringe (25 Gm/50 Ml)) 25 gm IV PRN PRN PRN Reason: Protocol Stop: 07/08/17 00:20 Exenatide (Byetta Inj 10 Mcg/0.04 Ml 2.4 Ml Pen.Injctr) 10 mcg SUBCUT DAILY JOHN Stop: 07/07/17 21:59 Last Admin: 06/11/17 09:39 Dose: 10 mcg Fluconazole (Diflucan 100 Mg Tablet) 100 mg PO DAILY [facility] Stop: 06/17/17 09:59 Last Admin: 06/11/17 09:38 Dose: 100 mg Gabapentin (Neurontin 300 Mg Capsule) 300 mg PO Q8 [facility] Stop: 07/07/17 21:59 Last Admin: 06/11/17 05:57 Dose: 300 mg Glucagon (Glucagen Inj 1 Mg Vial) 1 mg IM PRN PRN; Protocol PRN Reason: EVALUATE FOR BG < 70 Stop: 07/08/17 00:20 Glucose (Glutose 40% Gel 15 Gm Tube) 15 gm PO PRN PRN; Protocol PRN Reason: FOR BG 50-69 IN ALERT PATIENT Stop: 07/08/17 00:20 Glucose (Glutose 40% Gel 15 Gm Tube) 30 gm PO PRN PRN; Protocol PRN Reason: FOR BG < 50 IN ALERT PATIENT Stop: 07/08/17 00:20 Influenza Virus Vaccine Quadrival (Fluzone Adlt Quad [id number] Vac 0.5 Ml Syr) 0.5 ml IM .DISCHARGE PRN PRN Reason: THIS MED IS NOT "PRN" Stop: 07/07/17 21:26 Insulin Detemir (Levemir Insulin 300 Units/3 Ml Insuln.Pen) 10 unit SUBCUT ACBRKFST [facility] Stop: 07/07/17 21:59 Last Admin: 06/11/17 07:46 Dose: 10 unit Insulin Glargine (Lantus Insulin 100 Unit/1 Ml 10 Ml) 100 unit SUBCUT QHS [facility] Stop: 07/08/17 21:59 Last Admin: 06/10/17 22:14 Dose: Not Given Insulin Human Lispro (Humalog Insulin 100 Unit/1 Ml 3 Ml Vial) 0 - 12 unit SUBCUT ACHSP PRN PRN Reason: Protocol Stop: 07/08/17 00:20 Last Admin: 06/11/17 07:52 Dose: 2 unit Isosorbide Mononitrate (Imdur 30 Mg Tablet.Er) 30 mg PO DAILY [facility] Stop: 07/07/17 17:59 Last Admin: 06/11/17 09:39 Dose: 30 mg Lansoprazole (Prevacid 30 Mg Odt Tablet) 30 mg PO BID@0600,1700 [facility] Stop: 07/10/17 16:59 Last Admin: 06/11/17 05:57 Dose: 30 mg Loperamide HCl (Imodium 2 Mg Capsule) 2 mg PO Q4HP PRN PRN Reason: FOR DIARRHEA Stop: 07/08/17 19:25 Last Admin: 06/10/17 05:44 Dose: 2 mg Loratadine (Claritin 10 Mg Tablet) 10 mg PO NOW ONE Stop: 06/11/17 12:01 Loratadine (Claritin 10 Mg Tablet) 10 mg PO DAILY JOHN Stop: 07/12/17 09:59 Metformin HCl (Glucophage 500 Mg Tablet) 1,000 mg PO BIDBS JOHN Stop: 07/08/17 07:59 Last Admin: 06/11/17 07:46 Dose: 1,000 mg Metoprolol Succinate (Toprol Xl 50 Mg Tab.Sr) 50 mg PO Q12 JOHN Stop: 07/10/17 21:59 Last Admin: 06/11/17 09:38 Dose: 50 mg Multivitamins (Tab-A-Art (Multiple Vitamin) Tablet) 1 tab PO DAILY JOHN Stop: 07/08/17 09:59 Last Admin: 06/11/17 09:37 Dose: 1 tab Ondansetron HCl (Zofran Inj/Pf 4 Mg/2 Ml Sdv) 4 mg IV Q6HP PRN PRN Reason: NAUSEA Stop: 07/07/17 20:34 Last Admin: 06/08/17 17:21 Dose: 4 mg Ondansetron HCl (Zofran 8 Mg Tablet) 8 mg PO DAILY JOHN Stop: 07/08/17 09:59 Last Admin: 06/11/17 09:37 Dose: 8 mg Patient Own Medication (Canagliflozin [Invokana]) 300 mg PO .DAILY [facility] Stop: 07/07/17 17:44 Ranolazine (Ranexa 500 Mg Tab.Sr) 500 mg PO Q12 JOHN Stop: 07/10/17 21:59 Last Admin: 06/11/17 09:37 Dose: 500 mg Tiotropium [place] (Spiriva Handihaler 5 Cap/Kit (18 Mcg/Cap)) 1 cap IH DAILY@ 1200 [facility] Stop: 07/07/17 18:59 Last Admin: 06/11/17 11:05 Dose: 1 cap - Allergies Allergies/Adverse Reactions: metformin [Metformin] Allergy (Verified 07/18/14 14:07) Diarrhea cillins Allergy (Uncoded 07/18/14 14:07) Vomiting Hospital Course Hospital Course: Patient 51-year-old female with type 2 diabetes mellitus, morbid obesity, coronary artery disease, she came to the office for evaluation of left-sided chest pain that radiated to the left upper extremities, it was suspicious for ischemic heart disease syndrome, the chest pain seems to be provoked with activity there was no clinical evidence that it was unstable angina, she was admitted to the hospital for evaluation. Cardiac enzymes were negative for acute CT, she was scheduled for a pharmacological stress test before the test was uninterpretable. Consultation was requested from cardiology, Dr. Moon, He suggested that patient would need cardiac cauterization and she is been transferred for that. She has hoarseness of the voice this morning, she is given azithromycin for that Physical Exam Vital Signs: Temp Pulse Resp BP Pulse Ox 98.4 F 91 18 141/98 H 98 06/11/17 07:40 06/11/17 07:40 06/11/17 07:40 06/11/17 07:40 06/11/17 07:40 Intake & Output 06/10/17 06/11/17 06/12/17 06:59 06:59 06:59 Intake Total 1047 930 Balance 1047 930 Weight 158 kg 157 kg General appearance: PRESENT: no acute distress, well-developed, well-nourished Head exam: PRESENT: atraumatic, normocephalic Eye exam: PRESENT: conjunctiva pink, EOMI, PERRLA. ABSENT: scleral icterus Ear exam: PRESENT: normal external ear exam Mouth exam: PRESENT: moist, tongue midline Neck exam: ABSENT: carotid bruit, JVD, lymphadenopathy, thyromegaly Respiratory exam: PRESENT: clear to auscultation dexter. ABSENT: rales, rhonchi, wheezes Cardiovascular exam: PRESENT: RRR. ABSENT: diastolic murmur, rubs, systolic murmur Pulses: PRESENT: normal dorsalis pedis pul Vascular exam: PRESENT: normal capillary refill GI/Abdominal exam: PRESENT: normal bowel sounds, soft. ABSENT: distended, guarding, mass, organolmegaly, rebound, tenderness Rectal exam: PRESENT: deferred Extremities exam: PRESENT: full ROM. ABSENT: calf tenderness, clubbing, pedal edema Neurological exam: PRESENT: alert, awake, oriented to person, oriented to place , oriented to time, oriented to situation, CN II-XII grossly intact. ABSENT: motor sensory deficit Psychiatric exam: PRESENT: appropriate affect, normal mood. ABSENT: homicidal ideation, suicidal ideation Skin exam: PRESENT: dry, intact, warm. ABSENT: cyanosis, rash Results Laboratory Results: 06/07/17 14:13 06/07/17 14:13 06/07/17 06/07/17 06/07/17 14:13 22:51 22:51 Creatine Kinase 178 H CK-MB (CK-2) 0.42 Troponin I < 0.012 NT-Pro-B Natriuret Pep 48 06/08/17 06/08/17 06/08/17 06:46 06:46 15:35 Creatine Kinase 168 H 167 H CK-MB (CK-2) 0.29 Troponin I < 0.012 NT-Pro-B Natriuret Pep 06/08/17 15:35 Creatine Kinase CK-MB (CK-2) 0.34 Troponin I < 0.012 NT-Pro-B Natriuret Pep Impressions: Chest X-Ray 06/07/17 14:01 IMPRESSION: NO ACUTE RADIOGRAPHIC FINDING IN THE CHEST.
--- NOTE | 2017-06-11 11:53 | PDOC PROGRESS REPORT ---
Subjective Progress Note for:: 06/11/17 Subjective:: Patient continues with chest pain on minimal exertion. Patient denying any PND , orthopnea. Patient denied any sustained palpitations, dizziness, syncope, near syncope. Patient denying any fever chills. Patient denying any other significant discomfort. Report from [facility] is available. Patient had plain balloon angioplasty of the circumflex artery. It is very likely that patient may have restenosed. Nuclear images difficult to interpret but cannot rule out inferior and mid anterior wall ischemia. Feel that cardiac catheterization would be the best option. Patient is maintaining sinus rhythm. Review of systems: Rest review of systems negative. Medications: Medications have been reviewed. Reason For Visit: CHEST PAIN Physical Exam Vital Signs: Temp Pulse Resp BP Pulse Ox 98.4 F 91 18 141/98 H 98 06/11/17 07:40 06/11/17 07:40 06/11/17 07:40 06/11/17 07:40 06/11/17 07:40 Intake & Output 06/10/17 06/11/17 06/12/17 06:59 06:59 06:59 Intake Total 1047 930 Balance 1047 930 Weight 158 kg 157 kg Exam: GENERAL: well-nourished and in no acute distress. Alert and oriented x3 HEAD: Atraumatic, normocephalic. EYES: Pupils equal round and reactive to light, extraocular movements intact, sclera anicteric, conjunctiva are normal. ENT: TMs normal, nares patent, oropharynx clear without exudates. Moist mucous membranes. No oral ulcerations or bleeding gums noted NECK: supple without lymphadenopathy. Trachea is central. No cervical or axillary lymphadenopathy noted. Carotids are 2+, JVD WNL LUNGS: Respiration seems nonlabored, no significant accessory muscle action noted. Breath sounds clear to auscultation bilaterally and equal noted. No wheezes rales or rhonchi noted. No significant dullness noted on percussion. CHEST: Palpation of the chest wall shows no significant chest wall tenderness. No other significant abnormalities noted. 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 ABDOMEN: Soft, no significant tenderness appreciated, normoactive bowel sounds. No guarding, no rebound. No rigidity noted . No masses appreciated. EXTREMITIES: Pedal pulses are 1-2+, no calf tenderness noted. No clubbing or cyanosis.trace to 1+ pedal edema noted NEUROLOGICAL: Focused neurological exam showed no significant neurologic deficit. Normal speech, no focal weakness appreciated. PSYCH: Normal mood, normal affect. Judgment and insight within normal limits. SKIN: No significant ecchymosis, rash, ulcerations or signs of pruritus noted. MUSCULOSKELETAL EXAM: No significant joint swelling noted. Results Laboratory Results: 06/07/17 14:13 06/07/17 14:13 06/07/17 06/07/17 06/07/17 14:13 22:51 22:51 Creatine Kinase 178 H CK-MB (CK-2) 0.42 Troponin I < 0.012 NT-Pro-B Natriuret Pep 48 06/08/17 06/08/17 06/08/17 06:46 06:46 15:35 Creatine Kinase 168 H 167 H CK-MB (CK-2) 0.29 Troponin I < 0.012 NT-Pro-B Natriuret Pep 06/08/17 15:35 Creatine Kinase CK-MB (CK-2) 0.34 Troponin I < 0.012 NT-Pro-B Natriuret Pep Impressions: Chest X-Ray 06/07/17 14:01 IMPRESSION: NO ACUTE RADIOGRAPHIC FINDING IN THE CHEST. Assessment & Plan - Diagnosis (1) Chest pain Qualifiers: Chest pain type: unspecified Qualified Code(s): R07.9 - Chest pain, unspecified Is this a current diagnosis for this admission?: Yes (2) Obstructive sleep apnea syndrome Is this a current diagnosis for this admission?: Yes (3) Diabetes mellitus Qualifiers: Diabetes mellitus type: type 2 Diabetes mellitus complication status: with neurologic complications Diabetes mellitus complication detail: with polyneuropathy Diabetes mellitus correction insulin use: without director long term care use Qualified Code(s): E11.42 - Type 2 diabetes mellitus with diabetic polyneuropathy Is this a current diagnosis for this admission?: Yes (4) GERD (gastroesophageal reflux disease) Qualifiers: Esophagitis presence: without esophagitis Qualified Code(s): K21.9 - Gastro -esophageal reflux disease without esophagitis Is this a current diagnosis for this admission?: Yes (5) HLD (hyperlipidemia) Qualifiers: Hyperlipidemia type: pure hyperglyceridemia Qualified Code(s): E78.1 - Pure hyperglyceridemia Is this a current diagnosis for this admission?: Yes (6) HTN (hypertension) Qualifiers: Hypertension type: essential hypertension Qualified Code(s): I10 - Essential (primary) hypertension Is this a current diagnosis for this admission?: Yes (7) Morbid obesity Is this a current diagnosis for this admission?: Yes - Notes Notes: Discussed case with [facility] cardiology southeast regional sales manager and need for heart catheterization in view of continuing chest pain on minimal exertion and known CAD with prior stent placement. They kindly accepted the patient in transfer. Dr. Calvin to do discharge summary. I completed the emtala forms. Patient has CAD regimen is being optimized. Patient to be placed on Ranexa 1000 mg p.o. twice daily. Patient will benefit from scheduling a sleep study as an outpatient. Chest pain: Patient describes exertional chest pain. She has known history of coronary artery disease. Nuclear stress test equivocal for ruling out any ischemia. At this point feel that patient may benefit from a heart catheterization. In the meantime will optimize medical management of CAD. Obstructive sleep apnea syndrome: Patient currently not on CPAP therapy. Patient claims that she was tested about 10 years ago but never really got onto CPAP therapy. Patient will benefit from a repeat sleep study and institution of CPAP therapy. Diabetes: Currently under satisfactory management. Gastroesophageal reflux disease: Currently stable. Will optimize therapy. Dyslipidemia: Continue high potency statin therapy. Hypertension: Recommend good control of blood pressure. Blood pressure goal should be 135/85 or less. Morbid obesity: Patient will benefit from weight loss. She was considered for obesity surgery but was turned down because of coronary artery disease and also because of excess weight. - Time Time with patient: Greater than 35 minutes - CODE STATUS was discussed, patient remains full code. Surrogate decision-maker unchanged. Multiple medical problems were addressed. More than 50% of the time spent coordinating care, discussing management plans with involved caregivers. Management plans discussed with involved personnels. Medical decision making was of moderate to high complexity, patient's has multiple comorbidities. Medications reviewed and adjusted accordingly: Yes
[2017-06-11] MEDS ORDERED: LORATADINE 10 MG TABLET PO ONE (12:00)
[2017-06-11] MEDS ORDERED: AZITHROMYCIN 250 MG TABLET PO ONE (12:00)
[2017-06-11] MEDS: ACETAMINOPHEN 325 MG TABLET PO PRN (20:02)
[2017-06-11] MEDS: ATORVASTATIN CALCIUM 80 MG TABLET PO SCH (22:32)
[2017-06-11] MEDS: CLOPIDOGREL BISULFATE 75 MG TABLET PO SCH (22:32)
[2017-06-11] MEDS: ASPIRIN 81 MG TABLET, ENT COATED PO SCH (22:32)
[2017-06-11] MEDS: INSULIN GLARGINE,HUM.REC.ANLOG 1,000 UNIT/10 ML UNIT SUBCUT SCH (22:32)
[2017-06-12] MEDS: GABAPENTIN 300 MG CAPSULE PO SCH ×2 (06:18→13:34)
[2017-06-12] MEDS: LANSOPRAZOLE 30 MG TAB.RAP.DR PO SCH ×2 (06:18→16:51)
[2017-06-12] MEDS: METFORMIN HCL 500 MG TABLET PO SCH ×2 (08:43→16:51)
[2017-06-12] MEDS: INSULIN DETEMIR 100 UNIT/ML 3 ML PEN SUBCUT SCH (08:43)
[2017-06-12] MEDS ORDERED: LORATADINE 10 MG TABLET PO SCH (10:00)
[2017-06-12] MEDS ORDERED: AZITHROMYCIN 250 MG TABLET PO SCH (10:00)
[2017-06-12] MEDS: MULTIVITAMIN TABLET PO SCH (10:46)
[2017-06-12] MEDS: AMLODIPINE BESYLATE 10 MG TABLET PO SCH (10:46)
[2017-06-12] MEDS: FLUCONAZOLE 100 MG TABLET PO SCH (10:46)
[2017-06-12] MEDS: RANOLAZINE 500 MG TAB.SR.12H PO SCH (10:46)
[2017-06-12] MEDS: METOPROLOL SUCCINATE 50 MG TAB.SR.24H PO SCH (10:47)
[2017-06-12] MEDS: ISOSORBIDE MONONITRATE 30 MG TAB.ER.24H PO SCH (10:47)
[2017-06-12] MEDS: EXENATIDE INJ 10 MCG/0.04 ML 2.4 ML PEN.INJCTR SUBCUT SCH (10:47)
[2017-06-12] MEDS: ONDANSETRON HCL 8 MG TABLET PO SCH (10:47)
[2017-06-12] MEDS: INSULIN LISPRO 100 UNIT/ML 3 ML VIAL SUBCUT PRN (12:57)
[2017-06-12] MEDS: TIOTROPIUM BROMIDE DPI 5 CAP/KIT (18 MCG/CAP) IH SCH (15:04)
[2017-06-12 16:14] VITALS: BP 123/70
[2017-06-12] MEDS: ACETAMINOPHEN 325 MG TABLET PO PRN (16:51)
--- NOTE | 2017-06-12 18:16 | PDOC PROGRESS REPORT ---
Subjective Progress Note for:: 06/12/17 Subjective:: Patient was placed on Ranexa yesterday but in spite of that she continues to have chest pain on minimal exertion which she describes as tightness. Patient continues with chest pain on minimal exertion. Patient denying any PND , orthopnea. Patient denied any sustained palpitations, dizziness, syncope, near syncope. Patient denying any fever chills. Patient denying any other significant discomfort. Report from [facility] is available. Patient had plain balloon angioplasty of the circumflex artery. It is very likely that patient may have restenosed. Nuclear images difficult to interpret but cannot rule out inferior and mid anterior wall ischemia. Feel that cardiac catheterization would be the best option. Patient is maintaining sinus rhythm. Review of systems: Rest review of systems negative. Medications: Medications have been reviewed. Reason For Visit: CHEST PAIN Physical Exam Vital Signs: Temp Pulse Resp BP Pulse Ox 98.8 F 90 12 123/70 98 06/12/17 15:39 06/12/17 15:39 06/12/17 15:39 06/12/17 15:39 06/12/17 15:39 Intake & Output 06/11/17 06/12/17 06/13/17 06:59 06:59 06:59 Intake Total 930 1082 355 Balance 930 1082 355 Weight 157 kg 155.9 kg Exam: GENERAL: well-nourished and in no acute distress. Alert and oriented x3 HEAD: Atraumatic, normocephalic. EYES: Pupils equal round and reactive to light, extraocular movements intact, sclera anicteric, conjunctiva are normal. ENT: TMs normal, nares patent, oropharynx clear without exudates. Moist mucous membranes. No oral ulcerations or bleeding gums noted NECK: supple without lymphadenopathy. Trachea is central. No cervical or axillary lymphadenopathy noted. Carotids are 2+, JVD WNL LUNGS: Respiration seems nonlabored, no significant accessory muscle action noted. Breath sounds clear to auscultation bilaterally and equal noted. No wheezes rales or rhonchi noted. No significant dullness noted on percussion. CHEST: Palpation of the chest wall shows no significant chest wall tenderness. No other significant abnormalities noted. 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 ABDOMEN: Soft, no significant tenderness appreciated, normoactive bowel sounds. No guarding, no rebound. No rigidity noted . No masses appreciated. EXTREMITIES: Pedal pulses are 1-2+, no calf tenderness noted. No clubbing or cyanosis.trace to 1+ pedal edema noted NEUROLOGICAL: Focused neurological exam showed no significant neurologic deficit. Normal speech, no focal weakness appreciated. PSYCH: Normal mood, normal affect. Judgment and insight within normal limits. SKIN: No significant ecchymosis, rash, ulcerations or signs of pruritus noted. MUSCULOSKELETAL EXAM: No significant joint swelling noted. Results Laboratory Results: 06/07/17 14:13 06/07/17 14:13 06/07/17 06/07/17 06/07/17 14:13 22:51 22:51 Creatine Kinase 178 H CK-MB (CK-2) 0.42 Troponin I < 0.012 NT-Pro-B Natriuret Pep 48 06/08/17 06/08/17 06/08/17 06:46 06:46 15:35 Creatine Kinase 168 H 167 H CK-MB (CK-2) 0.29 Troponin I < 0.012 NT-Pro-B Natriuret Pep 06/08/17 15:35 Creatine Kinase CK-MB (CK-2) 0.34 Troponin I < 0.012 NT-Pro-B Natriuret Pep Impressions: Chest X-Ray 06/07/17 14:01 IMPRESSION: NO ACUTE RADIOGRAPHIC FINDING IN THE CHEST. Assessment & Plan - Diagnosis (1) Chest pain Qualifiers: Chest pain type: unspecified Qualified Code(s): R07.9 - Chest pain, unspecified Is this a current diagnosis for this admission?: Yes (2) Obstructive sleep apnea syndrome Is this a current diagnosis for this admission?: Yes (3) Diabetes mellitus Qualifiers: Diabetes mellitus type: type 2 Diabetes mellitus complication status: with neurologic complications Diabetes mellitus complication detail: with polyneuropathy Diabetes mellitus bed bug exterminator insulin use: without bed bug exterminator use Qualified Code(s): E11.42 - Type 2 diabetes mellitus with diabetic polyneuropathy Is this a current diagnosis for this admission?: Yes (4) GERD (gastroesophageal reflux disease) Qualifiers: Esophagitis presence: without esophagitis Qualified Code(s): K21.9 - Gastro -esophageal reflux disease without esophagitis Is this a current diagnosis for this admission?: Yes (5) HLD (hyperlipidemia) Qualifiers: Hyperlipidemia type: pure hyperglyceridemia Qualified Code(s): E78.1 - Pure hyperglyceridemia Is this a current diagnosis for this admission?: Yes (6) HTN (hypertension) Qualifiers: Hypertension type: essential hypertension Qualified Code(s): I10 - Essential (primary) hypertension Is this a current diagnosis for this admission?: Yes (7) Morbid obesity Is this a current diagnosis for this admission?: Yes - Notes Notes: Chest pain: Patient describes exertional chest pain. She has known history of coronary artery disease. Nuclear stress test equivocal for ruling out any ischemia. At this point feel that patient may benefit from a heart catheterization. In the meantime will optimize medical management of CAD. Did place patient on Ranexa 500 mg p.o. twice daily, to be increased to 1000 mg p.o. twice daily. Patient currently waiting for a bed at [facility]. Obstructive sleep apnea syndrome: Patient currently not on CPAP therapy. Patient claims that she was tested about 10 years ago but never really got onto CPAP therapy. Patient will benefit from a repeat sleep study and institution of CPAP therapy. Diabetes: Currently under satisfactory management. Gastroesophageal reflux disease: Currently stable. Will optimize therapy. Dyslipidemia: Continue high potency statin therapy. Hypertension: Recommend good control of blood pressure. Blood pressure goal should be 135/85 or less. Morbid obesity: Patient will benefit from weight loss. She was considered for obesity surgery but was turned down because of coronary artery disease and also because of excess weight. - Time Time with patient: 15-25 minutes - CODE STATUS was discussed, patient remains full code. Surrogate decision-maker unchanged. Multiple medical problems were addressed. More than 50% of the time spent coordinating care, discussing management plans with involved caregivers. Management plans discussed with involved personnels. Medical decision making was of moderate to high complexity , patient's has multiple comorbidities. Medications reviewed and adjusted accordingly: Yes
== END 2017-06-12 17:59 | disposition short-term general hospital (02) ==
LOC: ER 13:09 → EH 13:18 → 3W 21:08
PROVIDERS: ADMIT Internal Medicine; ATTEND Internal Medicine
DX: R07.9 Chest pain, unspecified (principal); G47.33 Obstructive sleep apnea (adult) (pediatric); E11.42 Type 2 diabetes mellitus with diabetic polyneuropathy; K21.9 Gastro-esophageal reflux disease without esophagitis; E78.1 Pure hyperglyceridemia; E66.01 Morbid (severe) obesity due to excess calories; R49.0 Dysphonia; I25.10 Atherosclerotic heart disease of native coronary artery without angina pectoris; I10 Essential (primary) hypertension; Z68.43 Body mass index [BMI] 50.0-59.9, adult; Z79.899 Other long term (current) drug therapy; Z79.4 Long term (current) use of insulin; Z82.49 Family history of ischemic heart disease and other diseases of the circulatory system; Z79.82 Long term (current) use of aspirin; Z79.02 Long term (current) use of antithrombotics/antiplatelets; Z86.718 Personal history of other venous thrombosis and embolism; R19.7 Diarrhea, unspecified; Z98.61 Coronary angioplasty status
CPT/HCPCS: 82043; 82570; 36415 ×2; 84439; 82553 ×2; 82962 ×6; 82550 ×2; 84443; 85025; 80053; 81001; 84484 ×2; 83036; 85379; 87493; 80061; 83880; 93017; 71045; 78452; 93005 ×2; 93010 ×2; A9500; J2785; J3490 ×44; J1815 ×8; Q0144 ×2; S0119 ×5; J2405 ×2; J0280; Q9969

== ENCOUNTER 2017-08-15 11:29 | Emergency (ER) | payer MEDICAID ==
[2017-08-15] MEDS ORDERED: NORMAL SALINE 1000 ML 1,000 ML IV ONE ×2 (11:45→13:16)
[2017-08-15] MEDS ORDERED: HYDROMORPHONE HCL INJ/PF 2 MG/ML AMPULE IV ONE ×2 (11:45→15:19)
[2017-08-15] MEDS ORDERED: ONDANSETRON HCL INJ/PF 4 MG/2 ML SDV IV ONE (11:45)
--- NOTE | 2017-08-15 11:52 | ER Document Report ---
ED General - General Stated Complaint: HEADPAIN,VOMITING Time Seen by Provider: 08/15/17 11:35 Notes: 52-year-old female presents to the ER with multiple complaints. The patient stated for the last 4 days she developed a migraine headache. She usually gets headaches every other day since she had her stroke several months ago. This is 1 of the worst headache she had there is no thunderclap. She states this is the same character that she has had since her stroke. She denies any extremity numbness tingling or weakness. She denies chest pain. She has been throwing up and having diarrhea for the last 4 days 2. She has been having chills but denies fever. She denies any sick contacts. Complains of some left-sided abdominal cramping. Denies any hematuria or dysuria. Denies any blurred vision or motor weakness. TRAVEL OUTSIDE OF THE [place] IN LAST 30 DAYS: No - Related Data Allergies/Adverse Reactions: metformin [Metformin] Allergy (Verified 07/18/14 14:07) Diarrhea cillins Allergy (Uncoded 07/18/14 14:07) Vomiting Past Medical History - Social History Smoking Status: Unknown if Ever Smoked Family History: Hypertension - Past Medical History Cardiac Medical History: Reports: Hx Congestive Heart Failure, Hx DVT, Hx Hypertension Pulmonary Medical History: Reports: Hx Sleep Apnea Endocrine Medical History: Reports: Hx Diabetes Mellitus Type 2 - Insulin- dependent Renal/ Medical History: Denies: Hx Peritoneal Dialysis GI Medical History: Reports: Hx Gastroesophageal Reflux Disease Musculoskeltal Medical History: Reports Hx Arthritis Psychiatric Medical History: Denies: Hx Depression Infectious Medical History: Denies: Hx C-Diff, Hx HIV, Hx MRSA, Hx VRE Past Surgical History: Reports: Hx Cardiac Catheterization - Patient describes balloon angioplasty., Hx Tubal Ligation - Immunizations Immunizations up to date: Yes Hx Diphtheria, Pertussis, Tetanus Vaccination: No - unk Review of Systems - Review of Systems Constitutional: Chills. denies: Fever Cardiovascular: denies: Chest pain, Dyspnea Gastrointestinal: Abdominal pain, Diarrhea, Nausea Skin: denies: Rash Neurological/Psychological: Headaches. denies: Lost consciousness, Numbness, Tingling -: Yes All other systems reviewed and negative Physical Exam - Vital signs Vitals: Resp 14 08/15/17 11:43 - Notes Notes: GENERAL_APPEARANCE: Orbitally obese, alert, uncomfortable VITALS: reviewed, see vital signs table. HEAD: no_swelling\tenderness on the head. EYES: PERRL, EOMI, conjunctiva_clear. NOSE: no_nasal_discharge. MOUTH: (-)decreased moisture. THROAT: no_tonsilar_inflammation, no_airway_obstruction. no_lymphadenopathy NECK: supple, no_neck_tenderness, (-)thyromegaly. BACK: no_back_tenderness. CHEST_WALL: no_chest_tenderness. LUNGS: no_wheezing, no_rales, no_rhonchi, (-)accessory muscle use, good air exchange bilateral. HEART: normal_rate, normal_rhythm, normal_S1, normal_S2, (-)S3, (-)S4, no_ murmur, no_rub. ABDOMEN: normal_BS, soft, left upper and lower_abd_tenderness, (-)guarding, (-) rebound, no_organomegaly, no_abd_masses. EXTREMITIES: strength 5/5 in all_extremities, good pulses in all_extremities, no_swelling\tenderness in the extremities, no_edema. SKIN: warm, dry, good_color, no_rash. MENTAL_STATUS: speech_clear, oriented_X_3, normal_affect, responds_ appropriately to questions. NEURO: Neg Motor or Sensory Deficits on exam, CN 2-12 intact, DTR 2+ symmetric x 4, No cerbellar signs Course - Re-evaluation Re-evalutation: 08/15/17 11:50 52-year-old female arrives with a migraine headache. She has had these since she had her stroke several months ago. The patient stated this is been a fairly frequent thing. She states this is 1 of the worse. However she states she has been having nausea vomiting diarrhea the last 4 days also. She states this is made her headache worse she denies any fever chills or neck stiffness. Denies any falls or trauma. His headaches have been typical since she has had her stroke. The patient complains of a lot of abdominal cramping discomfort on the left side of her abdomen especially when she is having diarrhea. Patient was having a lot of photophobia due to the headache. We will give the patient some IV fluids check some generalized labs give her pain and nausea medicine. The patient likely has a viral gastroenteritis exacerbating her migraine headache. We will try to hydrate her up appropriately we will get scans of her head and abdomen. 08/15/17 15:19 Was monitored and worked up. Has many complaints and I pretty much had to work her up broadly. EKG showed some mild tachycardia with a negative troponin. Abdomen which is mainly left side likely due to diarrhea had a negative CAT scan showing no colitis or intra-abdominal pathology. The patient also complains of headache her head CT is normal she has had similar headaches since her stroke. There is no thunderclap this is 1 of the worst she has had however this is similar in character to since the stroke that she has had. I spoke with her about the possibility of subarachnoid hemorrhage. Though I think it is less likely I did offer her lumbar puncture and she has declined. We spoke about the risks and benefits and morbidity mortality associated with subarachnoid hemorrhage. Again the patient was not in favor of a lumbar puncture. With the patient's multiple complaints this is not clear one complaint of the other think the patient had a viral type illness causing the nausea vomiting and diarrhea. She was dehydrated and triggered the migraine. The abdominal pain and chest pain are likely just due to musculoskeletal pain upon vomiting. Patient was given IV fluids pain and nausea medicine here. Heart rate is come down still mildly tachycardic. I think the patient was dehydrated from the nausea vomiting and diarrhea. Discharge her home with Fioricet and Phenergan. - Vital Signs Vital signs: Temp Pulse Resp BP Pulse Ox 22 H 139/74 H 92 08/15/17 15:15 08/15/17 14:01 08/15/17 15:15 - Laboratory Result Diagrams: 08/15/17 12:01 08/15/17 12:01 Laboratory results interpreted by me: 08/15/17 08/15/17 08/15/17 12:01 12:01 12:01 RDW 14.8 H Seg Neutrophils % 83.0 H Lymphocytes % 10.8 L Sodium 146.0 H Carbon Dioxide 32 H Glucose 184 H Lipase 22.8 L Urine Glucose (UA) >=500 H Urine Ketones TRACE H Urine Blood SMALL H Urine Urobilinogen 4.0 H - Diagnostic Test Radiology reviewed: Reports reviewed Radiology results interpreted by me: 08/15/17 15:19 Abdomen/Pelvis CT 08/15/17 11:44 IMPRESSION: NO SIGNIFICANT OR ACUTE PROCESS IN THE ABDOMEN OR PELVIS. Head CT 08/15/17 11:44 IMPRESSION: NORMAL BRAIN CT WITHOUT CONTRAST. EVIDENCE OF ACUTE STROKE: NO. Chest X-Ray 08/15/17 11:46 IMPRESSION: NO ACUTE RADIOGRAPHIC FINDING IN THE CHEST. Chest/Abdomen CTA 08/15/17 13:21 IMPRESSION: NORMAL CTA OF THE CHEST. NO PULMONARY EMBOLI. - EKG Interpretation by Me Rate: Tachycardia Rhythm: NSR When compared to previous EKG there are: Previous EKG unavailable Discharge - Discharge Clinical Impression: Vomiting and diarrhea Headache Qualifiers: Headache type: unspecified Headache chronicity pattern: unspecified pattern Intractability: not intractable Qualified Code(s): R51 - Headache Chest pain Qualifiers: Chest pain type: other chest pain Qualified Code(s): R07.89 - Other chest pain Abdominal pain Qualifiers: Abdominal location: left lower quadrant Qualified Code(s): R10.32 - Left lower quadrant pain Disposition: HOME, SELF-CARE Instructions: Abdominal Pain ([facility]), Chest Pain of Unclear Cause ([facility]), Nausea or Vomiting, Nonspecific ([facility]) Additional Instructions: Drink plenty of fluids. He were mildly dehydrated. Take the headache and nausea medicine prescribed. Prescriptions: Butalb/Acetaminophen/Caffeine [Fioricet (50-325-40 mg) Tablet] 1 - 2 tab PO Q4H #20 tab Promethazine HCl [Phenergan 25 mg Tablet] 1 - 2 tab PO Q6H PRN #15 tablet PRN Reason: Referrals: MART BELTRAN MD [Primary Care Provider] - Follow up as needed
[2017-08-15 12:32] LABS: ABSOLUTE LYMPHOCYTES (AUTO) 0.7 10^3/uL (0.5-4.7); ABSOLUTE MONOCYTES (AUTO) 0.4 10^3/uL (0.1-1.4); ABSOLUTE NEUT (AUTO) 5.4 10^3/uL (1.7-8.2); BASOPHILS % (AUTO) 0.2 % (0-2); EOSINOPHILS % (AUTO) 0.5 % (0-6); HEMATOCRIT 40.8 % (36.0-47.0); HEMOGLOBIN 13.6 g/dL (12.0-15.5); LYMPHOCYTES % (AUTO) 10.8 % (13-45); MEAN CORPUSCULAR HEMOGLOBIN 31.2 pg (27.0-33.4); MEAN CORPUSCULAR HGB CONC 33.3 g/dL (32.0-36.0); MEAN CORPUSCULAR VOLUME 94 fl (80-97); MONOCYTES % (AUTO) 5.5 % (3-13); PLATELET COUNT 247 10^3/uL (150-450); RED BLOOD COUNT 4.35 10^6/uL (3.72-5.28); RED CELL DISTRIBUTION WIDTH 14.8 % (11.5-14.0); TOTAL CELLS COUNTED % (AUTO) 100 %; WHITE BLOOD COUNT 6.5 10^3/uL (4.0-10.5)
--- NOTE | 2017-08-15 12:42 | RADIOLOGY REPORT (SQ) ---
EXAM DESCRIPTION: CT HEAD WITHOUT COMPLETED DATE/TIME: 08/15/2017 12:32 pm REASON FOR STUDY: Headache, CP COMPARISON: None. TECHNIQUE: Axial images acquired through the brain without intravenous contrast. Images reviewed wi th bone, brain and subdural windows. Additional sagittal and coronal reconstructions were generated. Images stored on PACS. All CT scanners at this facility use dose modulation, iterative reconstruction, and/or weight based d osing when appropriate to reduce radiation dose to as low as reasonably achievable (ALARA). [facility]: Dose Right [facility]: CareDose [facility]: Dose Right [facility]: Teradose 4D [facility]: Kilopass RADIATION DOSE: CT Rad equipment meets quality standard of care and radiation dose reduction techniq ues were employed. CTDIvol: 53.2 mGy. DLP: 1044 mGy-cm. mGy. LIMITATIONS: None. FINDINGS: VENTRICLES: Normal size and contour. CEREBRUM: No masses. No hemorrhage. No midline shift. No evidence for acute infarction. Normal gra y/white matter differentiation. No areas of low density in the white matter. CEREBELLUM: No masses. No hemorrhage. No alteration of density. No evidence for acute infarction. EXTRAAXIAL SPACES: No fluid collections. No masses. ORBITS AND GLOBE: No intra- or extraconal masses. Normal contour of globe without masses. CALVARIUM: No fracture. PARANASAL SINUSES: No fluid or mucosal thickening. SOFT TISSUES: No mass or hematoma. OTHER: No other significant finding. IMPRESSION: NORMAL BRAIN CT WITHOUT CONTRAST. EVIDENCE OF ACUTE STROKE: NO. COMMENT: Quality ID # [id number]: Final reports with documentation of one or more dose reduction techniques (e.g., Automated exposure control, adjustment of the mA and/or kV according to patient size, use of iterative reconstruction technique) TECHNICAL DOCUMENTATION: JOB ID: [id number] [employer]- All Rights Reserved Reading location - IP/workstation name: [email or web address]
--- NOTE | 2017-08-15 12:45 | RADIOLOGY REPORT (SQ) ---
EXAM DESCRIPTION: CT ABD/PELVIS NO ORAL OR IV COMPLETED DATE/TIME: 08/15/2017 12:33 pm REASON FOR STUDY: Headache, CP diffuse abdominal pain COMPARISON: None. TECHNIQUE: CT scan of the abdomen and pelvis performed without intravenous or oral contrast. Images reviewed with lung, soft tissue, and bone windows. Reconstructed coronal and sagittal MPR images revi ewed. All images stored on PACS. All CT scanners at this facility use dose modulation, iterative reconstruction, and/or weight based d osing when appropriate to reduce radiation dose to as low as reasonably achievable (ALARA). [facility]: Dose Right [facility]: CareDose [facility]: Dose Right [facility]: Teradose 4D [facility]: [employer] RADIATION DOSE: CT Rad equipment meets quality standard of care and radiation dose reduction techniq ues were employed. CTDIvol: 14.4 mGy. DLP: 803 mGy-cm.mGy. LIMITATIONS: Morbid obesity FINDINGS: LOWER CHEST: No significant findings. No nodules or infiltrates. NON-CONTRASTED LIVER, SPLEEN, ADRENALS: Evaluation limited by lack of IV contrast. No identified sign ificant masses. PANCREAS: No masses. No peripancreatic inflammatory changes. GALLBLADDER: No identified stones by CT criteria. No inflammatory changes to suggest cholecystitis. RIGHT KIDNEY AND URETER: No suspicious masses. Assessment limited by lack of IV contrast. No signif icant calcifications. No hydronephrosis or hydroureter. LEFT KIDNEY AND URETER: No suspicious masses. Assessment limited by lack of IV contrast. No signifi cant calcifications. No hydronephrosis or hydroureter. AORTA AND RETROPERITONEUM: No aneurysm. No retroperitoneal masses or adenopathy. BOWEL AND PERITONEAL CAVITY: No obvious masses or inflammatory changes. No free fluid. APPENDIX: Normal. PELVIS, BLADDER, AND ABDOMINAL WALL:No abnormal masses. No free fluid. Bladder normal. BONES: No significant findings. OTHER: No other significant finding. IMPRESSION: NO SIGNIFICANT OR ACUTE PROCESS IN THE ABDOMEN OR PELVIS. COMMENT: Quality ID # [id number]: Final reports with documentation of one or more dose reduction techniques (e.g., Automated exposure control, adjustment of the mA and/or kV according to patient size, use of iterative reconstruction technique) TECHNICAL DOCUMENTATION: JOB ID: [id number] [employer]- All Rights Reserved Reading location - IP/workstation name: [email or web address]
[2017-08-15 12:56] LABS: ALANINE AMINOTRANSFERASE 30 U/L (9-52); ALBUMIN 4.1 g/dL (3.5-5.0); ALKALINE PHOSPHATASE 113 U/L (38-126); ANION GAP 13 (5-19); ASPARTATE AMINO TRANSFERASE 28 U/L (14-36); BILIRUBIN,DIRECT 0.4 mg/dL (0.0-0.4); BILIRUBIN,TOTAL 0.9 mg/dL (0.2-1.3); BLOOD UREA NITROGEN 13 mg/dL (7-20); CARBON DIOXIDE 32 mmol/L (22-30); CHLORIDE 101 mmol/L (98-107); GLUCOSE 184 mg/dL (75-110); LIPASE 22.8 U/L (23-300); POTASSIUM 4.1 mmol/L (3.6-5.0); TOTAL PROTEIN 8.2 g/dL (6.3-8.2)
[2017-08-15 13:10] LABS: APPEARANCE,URINE CLEAR; BILIRUBIN,URINE NEGATIVE (NEGATIVE); COLOR,URINE YELLOW; GLUCOSE, URINE >=500 mg/dL (NEGATIVE); KETONES,URINE TRACE mg/dL (NEGATIVE); LEUKOCYTE ESTERASE,URINE NEGATIVE (NEGATIVE); NITRITE,URINE NEGATIVE (NEGATIVE); PROTEIN,URINE NEGATIVE (NEGATIVE); URINE SPECIFIC GRAVITY 1.036
--- NOTE | 2017-08-15 13:15 | RADIOLOGY REPORT (SQ) ---
EXAM DESCRIPTION: CHEST SINGLE VIEW COMPLETED DATE/TIME: 08/15/2017 12:39 pm REASON FOR STUDY: sob COMPARISON: Chest films 06/07/2017, 12/13/2014, 03/13/2014 CT chest 12/14/2014, 03/13/2014 EXAM PARAMETERS: NUMBER OF VIEWS: One view. TECHNIQUE: Single frontal radiographic view of the chest acquired. RADIATION DOSE: NA LIMITATIONS: Morbid obesity FINDINGS: LUNGS AND PLEURA: No opacities, masses or pneumothorax. No pleural effusion. MEDIASTINUM AND HILAR STRUCTURES: No masses. Contour normal. HEART AND VASCULAR STRUCTURES: Heart normal in size. Normal vasculature. BONES: No acute findings. HARDWARE: None in the chest. OTHER: No other significant finding. IMPRESSION: NO ACUTE RADIOGRAPHIC FINDING IN THE CHEST. TECHNICAL DOCUMENTATION: JOB ID: [id number] [employer] All Rights Reserved Reading location - IP/workstation name: [email or web address]
[2017-08-15] MEDS ORDERED: KETOROLAC TROMETHAMINE INJ/PF 30 MG/1 ML SDV IV ONE (13:16)
[2017-08-15] MEDS ORDERED: DIPHENHYDRAMINE HCL 50 MG/ML VIAL IV ONE (13:16)
[2017-08-15] MEDS ORDERED: METOPROLOL TARTRATE PF/INJ 5 MG/5 ML SDV IV ONE (13:23)
--- NOTE | 2017-08-15 14:26 | EKG REPORT ---
SEVERITY:- OTHERWISE NORMAL ECG - SINUS TACHYCARDIA : Confirmed by: Kellie Moon 15-Aug-2017 14:25:41
--- NOTE | 2017-08-15 15:09 | RADIOLOGY REPORT (SQ) ---
EXAM DESCRIPTION: CTA CHEST COMPLETED DATE/TIME: 08/15/2017 2:43 pm REASON FOR STUDY: SOB, CP - High Heartrate COMPARISON: 12/14/2014 TECHNIQUE: CT scan of the chest performed using helical scanning technique with dynamic intravenous contrast injection. Images reviewed with lung, soft tissue and bone windows. Reconstructed coronal and sagittal MPR images reviewed. Additional 3 dimensional post-processing performed to develop Maximal Intensity Projection images (AL P). All images stored on PACS. All CT scanners at this facility use dose modulation, iterative reconstruction, and/or weight based d osing when appropriate to reduce radiation dose to as low as reasonably achievable (ALARA). [facility]: Dose Right [facility]: CareDose [facility]: Dose Right [facility]: Teradose 4D [facility]: [email or web address] CONTRAST TYPE AND DOSE: contrast/concentration: Isovue mg/ml; Total Contrast Delivered: 0.0 ml; Tot al Saline Delivered: 30.0 ml 84 mL Isovue 370- low osmolar. Contrast bolus adequate for pulmonary arteries and aorta. RENAL FUNCTION: Creatinine 0.63 RADIATION DOSE: CT Rad equipment meets quality standard of care and radiation dose reduction techniq ues were employed. CTDIvol: 41.3 - 41.8 mGy. DLP: 1380 mGy-cm. . LIMITATIONS: Poor signal to noise related to patient's body habitus. FINDINGS: LUNGS AND PLEURA: Minimal basilar atelectasis or scarring. 4 mm nodule along the minor fi ssure on the right smaller than on the prior study consistent with benign etiology likely intrapulmon norma lymph node. No evidence of active infiltrate or suspicious mass. AORTA AND GREAT VESSELS: No aneurysm. Contrast bolus not optimized for the aorta. HEART: No pericardial effusion. No significant coronary artery calcifications. PULMONARY ARTERIES: No emboli visualized in the main pulmonary arteries or the segmental branches. HILAR AND MEDIASTINAL STRUCTURES: No identified masses or abnormal nodes. HARDWARE: None in the chest. UPPER ABDOMEN: No significant findings. Limited exam. THYROID AND OTHER SOFT TISSUES: No masses. No adenopathy. BONES: No acute or significant finding. 3D MIPS: Confirm above findings. OTHER: No other significant finding. IMPRESSION: NORMAL CTA OF THE CHEST. NO PULMONARY EMBOLI. COMMENT: Quality ID # [id number]: Final reports with documentation of one or more dose reduction techniques (e.g., Automated exposure control, adjustment of the mA and/or kV according to patient size, use of iterative reconstruction technique) TECHNICAL DOCUMENTATION: JOB ID: [id number] [employer]- All Rights Reserved Reading location - IP/workstation name: [email or web address]
[2017-08-15 17:42] VITALS: BP 134/80
== END 2017-08-15 17:35 | disposition home or self-care (01) ==
LOC: ER 11:29
DX: G43.909 Migraine, unspecified, not intractable, without status migrainosus (principal); E86.0 Dehydration; R07.9 Chest pain, unspecified; H53.149 Visual discomfort, unspecified; R10.32 Left lower quadrant pain; R00.0 Tachycardia, unspecified; R19.7 Diarrhea, unspecified; R11.2 Nausea with vomiting, unspecified; R68.83 Chills (without fever); I10 Essential (primary) hypertension; E11.9 Type 2 diabetes mellitus without complications; Z79.4 Long term (current) use of insulin; Z86.73 Personal history of transient ischemic attack (TIA), and cerebral infarction without residual deficits; Z88.8 Allergy status to other drugs, medicaments and biological substances; Z88.0 Allergy status to penicillin
CPT/HCPCS: 93005; 99285; 36415; 82550; 83690; 85025; 80053; 81001; 84484; 71045; 70450; 71275; 74176; 93010; J1200; J1885; J3490; J1170; J2405; J7030

== ENCOUNTER 2017-11-26 11:43 | Emergency (ER) | payer MEDICAID ==
[2017-11-26] MEDS ORDERED: ONDANSETRON 4 MG TAB.RAPDIS PO ONE (12:24)
--- NOTE | 2017-11-26 12:25 | ER Document Report ---
ED Medical Screen (RME) - General Chief Complaint: Nausea/Vomiting/Diarrhea Stated Complaint: ABDOMINAL PAIN,DIARRHEA,NAUSEA Time Seen by Provider: 11/26/17 11:57 Mode of Arrival: Ambulatory Information source: Patient, [facility] Records Notes: 52-year-old female with diabetes, congestive heart failure, hypertension presents with complaint of nausea, vomiting, diarrhea and abdominal pain that started 2 days prior to arrival. Patient also reports seeing blood in her stool today. Patient recently returned from [place] 11 days ago after spending 3 months there. She denies sick contacts or recent antibiotic use. I have greeted and performed a rapid initial assessment of this patient. A comprehensive ED assessment and evaluation of the patient, analysis of test results and completion of medical decision making process we will be contacted by additional ED providers. PHYSICAL EXAMINATION: GENERAL: Well-appearing, well-nourished and in no acute distress. HEAD: Atraumatic, normocephalic. EYES: Pupils equal round extraocular movements intact, conjunctiva are normal. ENT: Nares patent NECK: Normal range of motion LUNGS: No respiratory distress Musculoskeletal: Normal range of motion NEUROLOGICAL: Normal speech, normal gait. PSYCH: Normal mood, normal affect. SKIN: Warm, Dry, normal turgor, no rashes or lesions noted. TRAVEL OUTSIDE OF THE [place] IN LAST 30 DAYS: Yes COUNTRY TRAVELED TO/FROM: [place] - HPI Onset: Other Onset/Duration: Gradual, Persistent, Worse Quality of pain: Cramping Severity: Moderate Associated Symptoms: Diarrhea, Nausea Exacerbated by: Food Relieved by: Denies Similar symptoms previously: No Recently seen / treated by doctor: No - Related Data Smoking: Non-smoker Frequency of alcohol use: None Drug Abuse: None Allergies/Adverse Reactions: metformin [Metformin] Allergy (Verified 11/26/17 12:24) Diarrhea cillins Allergy (Uncoded 11/26/17 12:24) Vomiting Past Medical History - Social History Chew tobacco use (# tins/day): No Frequency of alcohol use: None Drug Abuse: None Family history: Reviewed & Not Pertinent - Past Medical History Cardiac Medical History: Reports: Hx Congestive Heart Failure, Hx DVT, Hx Hypertension Pulmonary Medical History: Reports: Hx Sleep Apnea Endocrine Medical History: Reports: Hx Diabetes Mellitus Type 2 - Insulin- dependent Renal/ Medical History: Denies: Hx Peritoneal Dialysis GI Medical History: Reports: Hx Gastroesophageal Reflux Disease Musculoskeltal Medical History: Reports Hx Arthritis Psychiatric Medical History: Denies: Hx Depression Infectious Medical History: Denies: Hx C-Diff, Hx HIV, Hx MRSA, Hx VRE Past Surgical History: Reports: Hx Cardiac Catheterization - Patient describes balloon angioplasty., Hx Tubal Ligation - Immunizations Immunizations up to date: Yes Hx Diphtheria, Pertussis, Tetanus Vaccination: No - unk History of Influenza Vaccine for 01/2017 - 06/2017 Season: No Physical Exam - Vital signs Vitals: Temp Pulse Resp BP Pulse Ox 98.8 F 105 H 20 150/103 H 100 11/26/17 11:58 11/26/17 11:58 11/26/17 11:58 11/26/17 11:58 11/26/17 11:58 Course - Vital Signs Vital signs: Temp Pulse Resp BP Pulse Ox 98.8 F 105 H 20 150/103 H 100 11/26/17 11:58 11/26/17 11:58 11/26/17 11:58 11/26/17 11:58 11/26/17 11:58 Doctor's Discharge - Discharge Referrals: MART BELTRAN MD [Primary Care Provider] - Follow up as needed
[2017-11-26 12:56] LABS: ABSOLUTE BASOPHILS # (AUTO) 0.1 10^3/uL (0.0-0.2); ABSOLUTE EOSINOPHILS # (AUTO) 0.1 10^3/uL (0.0-0.6); ABSOLUTE LYMPHOCYTES (AUTO) 1.8 10^3/uL (0.5-4.7); ABSOLUTE MONOCYTES (AUTO) 0.5 10^3/uL (0.1-1.4); BASOPHILS % (AUTO) 0.9 % (0-2); HEMATOCRIT 44.3 % (36.0-47.0); HEMOGLOBIN 14.9 g/dL (12.0-15.5); LYMPHOCYTES % (AUTO) 28.1 % (13-45); MEAN CORPUSCULAR HEMOGLOBIN 31.4 pg (27.0-33.4); MEAN CORPUSCULAR HGB CONC 33.5 g/dL (32.0-36.0); MEAN CORPUSCULAR VOLUME 94 fl (80-97); MONOCYTES % (AUTO) 8.4 % (3-13); PLATELET COUNT 250 10^3/uL (150-450); RED BLOOD COUNT 4.74 10^6/uL (3.72-5.28); RED CELL DISTRIBUTION WIDTH 14.7 % (11.5-14.0); SEGMENTED NEUTROPHILS % (AUTO) 61.6 % (42-78); TOTAL CELLS COUNTED % (AUTO) 100 %; WHITE BLOOD COUNT 6.5 10^3/uL (4.0-10.5)
[2017-11-26] MEDS ORDERED: HYDROMORPHONE HCL INJ/PF 2 MG/ML AMPULE IV ONE (13:33)
[2017-11-26] MEDS ORDERED: NORMAL SALINE 1000 ML 1,000 ML IV ONE ×3 (13:34→18:08)
--- NOTE | 2017-11-26 13:35 | ER Document Report ---
ED GI/ - General Chief Complaint: Nausea/Vomiting/Diarrhea Stated Complaint: ABDOMINAL PAIN,DIARRHEA,NAUSEA Time Seen by Provider: 11/26/17 11:57 Mode of Arrival: Ambulatory TRAVEL OUTSIDE OF THE [place] IN LAST 30 DAYS: Yes COUNTRY TRAVELED TO/FROM: [place] - [facility] Patient complains to provider of: Abdominal pain, Vomiting Onset: Just prior to arrival Timing/Duration: Sudden Quality of pain: Cramping, Sharp Severity at maximum: Severe Severity in ED: Severe Pain Level: 5 Location: No: Chest pain Vaginal bleeding (Compared to normal period): None OB ultrasound done: No vitamins taken: No Associated symptoms: Blood in stool, Diarrhea Exacerbated by: Denies Relieved by: Denies Similar symptoms previously: No Recently seen / treated by doctor: No - Related Data Allergies/Adverse Reactions: metformin [Metformin] Allergy (Verified 11/26/17 12:24) Diarrhea cillins Allergy (Uncoded 11/26/17 12:24) Vomiting Past Medical History - General Information source: Patient, [facility] Records - Social History Smoking Status: Never Smoker Chew tobacco use (# tins/day): No Frequency of alcohol use: None Drug Abuse: None Family History: Hypertension Patient has suicidal ideation: No Patient has homicidal ideation: No - Past Medical History Cardiac Medical History: Reports: Hx Congestive Heart Failure, Hx DVT, Hx Heart Attack, Hx Hypertension Pulmonary Medical History: Reports: Hx Sleep Apnea Endocrine Medical History: Reports: Hx Diabetes Mellitus Type 2 - Insulin- dependent Renal/ Medical History: Denies: Hx Peritoneal Dialysis GI Medical History: Reports: Hx Gastroesophageal Reflux Disease Musculoskeletal Medical History: Reports Hx Arthritis Psychiatric Medical History: Denies: Hx Depression Infectious Medical History: Denies: Hx C-Diff, Hx HIV, Hx MRSA, Hx VRE Past Surgical History: Reports: Hx Cardiac Catheterization - Patient describes balloon angioplasty., Hx Tubal Ligation - Immunizations Immunizations up to date: Yes Hx Diphtheria, Pertussis, Tetanus Vaccination: No - unk Review of Systems - Review of Systems Constitutional: denies: Chills, Fever EENT: No symptoms reported Cardiovascular: denies: Chest pain, Palpitations Respiratory: No symptoms reported Gastrointestinal: Abdominal pain, Diarrhea, Nausea, Vomiting, Other - Blood in stool Genitourinary: No symptoms reported Female Genitourinary: No symptoms reported Musculoskeletal: No symptoms reported Skin: No symptoms reported Hematologic/Lymphatic: No symptoms reported Neurological/Psychological: No symptoms reported -: Yes All other systems reviewed and negative Physical Exam - Vital signs Vitals: Temp Pulse Resp BP Pulse Ox 98.8 F 105 H 20 150/103 H 100 11/26/17 11:58 11/26/17 11:58 11/26/17 11:58 11/26/17 11:58 11/26/17 11:58 - General General appearance: Appears well, Alert, Other - Morbid Obesity In distress: Moderate - HEENT Head: Normocephalic, Atraumatic Eyes: Normal Pupils: PERRL - Respiratory Respiratory status: No respiratory distress Chest status: Nontender Breath sounds: Normal Chest palpation: Normal - Cardiovascular Rhythm: Regular Heart sounds: Normal auscultation Murmur: No - Abdominal Inspection: Morbidly Obese Distension: No distension Bowel sounds: Normal Tenderness: Tender Organomegaly: No organomegaly - Back Back: Normal, Nontender - Extremities General upper extremity: Normal inspection, Nontender, Normal color, Normal ROM , Normal temperature General lower extremity: Normal inspection, Nontender, Normal color, Normal ROM , Normal temperature, Normal weight bearing. No: Slime's sign - Neurological Neuro grossly intact: Yes Cognition: Normal Orientation: AAOx4 Chapo Coma Scale Eye Opening: Spontaneous Chapo Coma Scale Verbal: Oriented Chapo Coma Scale Motor: Obeys Commands Curtis Coma Scale Total: 15 Speech: Normal Motor strength normal: LUE, RUE, LLE, RLE Sensory: Normal - Psychological Associated symptoms: Normal affect, Normal mood - Skin Skin Temperature: Warm Skin Moisture: Dry Skin Color: Normal Course - Vital Signs Vital signs: Temp Pulse Resp BP Pulse Ox 98.6 F 105 H 15 151/88 H 98 11/26/17 19:25 11/26/17 11:58 11/26/17 19:30 11/26/17 19:30 11/26/17 19:30 - Laboratory Result Diagrams: 11/26/17 12:40 11/26/17 14:05 Laboratory results interpreted by me: 11/26/17 11/26/17 11/26/17 12:40 13:35 14:05 RDW 14.7 H PT Chloride 97 L Glucose 291 H Urine Protein 100 H Urine Glucose (UA) >=500 H Urine Ketones 20 H Urine Blood MODERATE H Urine Urobilinogen 2.0 H Ur Leukocyte Esterase MODERATE H 11/26/17 14:05 RDW PT 25.5 H Chloride Glucose Urine Protein Urine Glucose (UA) Urine Ketones Urine Blood Urine Urobilinogen Ur Leukocyte Esterase - Diagnostic Test Radiology reviewed: Image reviewed, Reports reviewed - Transfer of Care Notes: 11/26/17 18:[address] Dean at [facility]. He accepted patient for transfer for further evaluation and management in his facility. Patient is medically stable for transfer at this time. 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 11/26/17 19:43 On reevaluation, patient says she is feeling better. She has no new complaints currently. The EMS team is here to take her to [facility] for further evaluation and management. He is medically stable at the time of transfer. Critical Care Note - Critical Care Note Total time excluding time spent on procedures (mins): 35 Discharge - Discharge Clinical Impression: Colitis, Lower gastrointestinal bleed, Vaginal bleeding UTI (urinary tract infection) Qualifiers: Urinary tract infection type: acute cystitis Hematuria presence: without hematuria Qualified Code(s): N30.00 - Acute cystitis without hematuria Abdominal pain Qualifiers: Abdominal location: generalized Qualified Code(s): R10.84 - Generalized abdominal pain Nausea and vomiting Qualifiers: Vomiting type: unspecified Vomiting Intractability: unspecified Qualified Code( s): R11.2 - Nausea with vomiting, unspecified Condition: Stable Disposition: [facility]
[2017-11-26 14:11] LABS: APPEARANCE,URINE CLOUDY; BILIRUBIN,URINE NEGATIVE (NEGATIVE); COLOR,URINE AMBER; GLUCOSE, URINE >=500 mg/dL (NEGATIVE); KETONES,URINE 20 mg/dL (NEGATIVE); LEUKOCYTE ESTERASE,URINE MODERATE (NEGATIVE); NITRITE,URINE NEGATIVE (NEGATIVE); PROTEIN,URINE 100 mg/dL (NEGATIVE); URINE SPECIFIC GRAVITY 1.037
[2017-11-26 14:38] LABS: PROTHROMBIN TIME 25.5 SEC (11.4-15.4)
[2017-11-26 14:39] LABS: PARTIAL THROMBOPLASTIN TIME 27.6 SEC (23.5-35.8)
[2017-11-26 14:58] LABS: BLOOD UREA NITROGEN 9 mg/dL (7-20); CALCIUM 8.9 mg/dL (8.4-10.2); CARBON DIOXIDE 29 mmol/L (22-30); CHLORIDE 97 mmol/L (98-107); GLUCOSE 291 mg/dL (75-110); POTASSIUM 4.3 mmol/L (3.6-5.0); SODIUM 139.7 mmol/L (137-145)
[2017-11-26 14:59] LABS: ALANINE AMINOTRANSFERASE 26 U/L (9-52); ALBUMIN 3.8 g/dL (3.5-5.0); ALKALINE PHOSPHATASE 102 U/L (38-126); ANION GAP 14 (5-19); ASPARTATE AMINO TRANSFERASE 23 U/L (14-36); BILIRUBIN,DIRECT 0.3 mg/dL (0.0-0.4); BILIRUBIN,TOTAL 0.8 mg/dL (0.2-1.3); LIPASE 44.7 U/L (23-300); TOTAL PROTEIN 7.6 g/dL (6.3-8.2)
--- NOTE | 2017-11-26 15:48 | RADIOLOGY REPORT (SQ) ---
EXAM DESCRIPTION: CT ABD/PELVIS WITH IV ONLY COMPLETED DATE/TIME: 11/26/2017 3:37 pm REASON FOR STUDY: abdominal pain COMPARISON: 08/15/2017 TECHNIQUE: CT scan of the abdomen and pelvis performed using helical scanning technique with dynamic intravenous contrast injection. No oral contrast. Images reviewed with lung, soft tissue, and bone windows. Reconstructed coronal and sagittal MPR images reviewed. Delayed images for evaluation of the urinary system also acquired. All images stored on PACS. All CT scanners at this facility use dose modulation, iterative reconstruction, and/or weight based d osing when appropriate to reduce radiation dose to as low as reasonably achievable (ALARA). [facility]: Dose Right [facility]: CareDose [facility]: Dose Right [facility]: Teradose 4D [facility]: [employer] CONTRAST TYPE AND DOSE: contrast/concentration: Isovue 350.00 mg/ml; Total Contrast Delivered: 99.0 ml; Total Saline Delivered: 67.0 ml RENAL FUNCTION: BUN 9; creatinine 0.61 RADIATION DOSE: CT Rad equipment meets quality standard of care and radiation dose reduction techniq ues were employed. CTDIvol: NaN - NaN mGy. DLP: 0 mGy-cm.. LIMITATIONS: None. FINDINGS: LOWER CHEST: No significant findings. No nodules or infiltrates. LIVER: Hepatic steatosis. Normal size. No masses. No dilated ducts. SPLEEN: Normal size. No focal lesions. PANCREAS: No masses. No significant calcifications. No adjacent inflammation or peripancreatic fluid collections. Pancreatic duct not dilated. GALLBLADDER: No identified stones by CT criteria. No inflammatory changes to suggest cholecystitis. ADRENAL GLANDS: No significant masses or asymmetry. RIGHT KIDNEY AND URETER: No solid masses. No significant calcifications. No hydronephrosis or hyd roureter. LEFT KIDNEY AND URETER: No solid masses. No significant calcifications. No hydronephrosis or hydr oureter. AORTA AND VESSELS: No aneurysm. No dissection. Renal arteries, SMA, celiac without stenosis. RETROPERITONEUM: No retroperitoneal adenopathy, hemorrhage or masses. BOWEL AND PERITONEAL CAVITY: Circumferential mural thickening with subtle mesenteric fat stranding in volving the colon at the splenic flexure. APPENDIX: Normal. PELVIS: No mass. No free fluid. Normal bladder. ABDOMINAL WALL: No masses. No hernias. BONES: No significant or acute findings. OTHER: No other significant finding. IMPRESSION: Findings suggest focal colitis involving the splenic flexure. Otherwise unremarkable CT appearance of the abdomen and pelvis. TECHNICAL DOCUMENTATION: JOB ID: [id number] Quality ID # [id number]: Final reports with documentation of one or more dose reduction techniques (e.g., Au tomated exposure control, adjustment of the mA and/or kV according to patient size, use of iterative reconstruction technique) 2010 [email or web address]- All Rights Reserved Reading location - IP/workstation name: [email or web address]
[2017-11-26] MEDS ORDERED: LEVOFLOXACIN 750 MG/D5W RTU 750 MG/150 ML RTUPB IV SCH (17:00)
[2017-11-26] MEDS ORDERED: METRONIDAZOLE 500 MG/NS RTU 500 MG/100 ML RTUPB IV ONE (17:00)
[2017-11-26] MEDS ORDERED: NORMAL SALINE 1000 ML 1,000 ML IV PRN ×2 (17:37→18:07)
[2017-11-26] MEDS ORDERED: ONDANSETRON 4 MG TAB.RAPDIS PO PRN (17:37)
[2017-11-26] MEDS ORDERED: ONDANSETRON HCL INJ/PF 4 MG/2 ML SDV IV PRN (17:37)
[2017-11-26] MEDS ORDERED: ACETAMINOPHEN 325 MG TABLET PO PRN (17:37)
[2017-11-26] MEDS ORDERED: DEXTROSE 40% GEL 15 GM TUBE PO PRN ×2 (17:41)
[2017-11-26] MEDS ORDERED: GLUCAGON,HUMAN RECOMB 1 MG INJ IM PRN (17:41)
[2017-11-26] MEDS ORDERED: INSULIN LISPRO 100 UNIT/ML 3 ML VIAL SUBCUT PRN (17:41)
[2017-11-26] MEDS ORDERED: DEXTROSE 50%-WATER 25 GM/50 ML DISP.SYRIN IV PRN ×2 (17:41)
[2017-11-26] MEDS ORDERED: HYDROMORPHONE HCL INJ/PF 2 MG/ML AMPULE IV PRN (17:45)
[2017-11-26] MEDS ORDERED: PANTOPRAZOLE SODIUM 40 MG VIAL IV ONE (18:08)
[2017-11-26] MEDS ORDERED: PANTOPRAZOLE SODIUM 40 MG VIAL IV PRN (18:08)
[2017-11-26 19:37] VITALS: BP 151/88
[2017-11-26] MEDS ORDERED: PANTOPRAZOLE SODIUM 40 MG VIAL IV SCH (22:00)
[2017-11-27] MEDS ORDERED: METRONIDAZOLE 500 MG/NS RTU 500 MG/100 ML RTUPB IV SCH
[2017-11-27] MEDS ORDERED: LEVOFLOXACIN 500 MG/D5W RTU 500 MG/100 ML RTUPB IV SCH (18:00)
== END 2017-11-26 19:56 | disposition short-term general hospital (02) ==
LOC: ER 11:43 → UNDOADMIN 18:11 → EH 18:11
DX: N30.00 Acute cystitis without hematuria (principal); K52.9 Noninfective gastroenteritis and colitis, unspecified; K92.2 Gastrointestinal hemorrhage, unspecified; N93.9 Abnormal uterine and vaginal bleeding, unspecified; R11.2 Nausea with vomiting, unspecified; R10.9 Unspecified abdominal pain; R19.5 Other fecal abnormalities; I10 Essential (primary) hypertension; E11.9 Type 2 diabetes mellitus without complications; Z79.4 Long term (current) use of insulin
CPT/HCPCS: 99291; 96361; 51701; 96375; 96365; 96367; 96368; 86900; 86901; 36415; 87040; 87086; 86850; 83690; 85025; 85610; 85730; 82272; 81025; 87077; 87088; 80053; 81001; 87186; 74177; S0119; J1170; S0164; J7030; J1956

== ENCOUNTER → 2018-01-16 | Outpatient (CLI) | payer MEDICAID ==
--- NOTE | 2018-01-16 17:03 | RADIOLOGY REPORT (SQ) ---
EXAM DESCRIPTION: KNEE LEFT 2 VIEWS COMPLETED DATE/TIME: 01/16/2018 4:21 pm REASON FOR STUDY: PAIN IN LEFT KNEE M25.562 PAIN IN LEFT KNEE COMPARISON: None. NUMBER OF VIEWS: Two views. TECHNIQUE: AP and lateral radiographic images acquired of the left knee. LIMITATIONS: None. FINDINGS: MINERALIZATION: Normal. BONES: No acute fracture or dislocation. No worrisome bone lesions. JOINT: No effusion. SOFT TISSUES: No soft tissue swelling. No radio-opaque foreign body. OTHER: No other significant finding. IMPRESSION: NEGATIVE STUDY OF THE LEFT KNEE. NO RADIOGRAPHIC EVIDENCE OF ACUTE INJURY. TECHNICAL DOCUMENTATION: JOB ID: [id number] [employer]- All Rights Reserved Reading location - IP/workstation name: [email or web address]
== END ==
LOC: OD 16:05
PROVIDERS: ATTEND Internal Medicine
DX: M25.562 Pain in left knee (principal)

== ENCOUNTER → 2019-03-06 | Outpatient (CLI) | payer MEDICAID ==
--- NOTE | 2019-03-06 16:09 | RADIOLOGY REPORT (SQ) ---
EXAM DESCRIPTION: PARANASAL SINUSES COMPLETED DATE/TIME: 03/06/2019 2:01 pm REASON FOR STUDY: PNEUMONIA J18.9 PNEUMONIA, UNSPECIFIED ORGANISM COMPARISON: CT brain 08/15/2017 NUMBER OF VIEWS: Three views TECHNIQUE: Images of the paranasal sinuses acquired. LIMITATIONS: None. FINDINGS: ORBITS: No fracture. No foreign body. SINUSES: No mucosal thickening. No air fluid levels. FACIAL BONES: No fracture. OTHER: No other significant finding. IMPRESSION: NO FOREIGN BODY OR FRACTURE. NO PLAIN RADIOGRAPHIC EVIDENCE FOR SINUS DISEASE. TECHNICAL DOCUMENTATION: JOB ID: [id number] [employer]- All Rights Reserved Reading location - IP/workstation name: [email or web address]
--- NOTE | 2019-03-06 16:10 | RADIOLOGY REPORT (SQ) ---
EXAM DESCRIPTION: CHEST PA/LATERAL COMPLETED DATE/TIME: 03/06/2019 2:01 pm REASON FOR STUDY: PNEUMONIA COMPARISON: CT chest 08/15/2017 AP chest 12/13/2014, 07/27/2010 EXAM PARAMETERS: NUMBER OF VIEWS: two views TECHNIQUE: Digital Frontal and Lateral radiographic views of the chest acquired. RADIATION DOSE: NA LIMITATIONS: none FINDINGS: LUNGS AND PLEURA: No opacities, masses or pneumothorax. No pleural effusion. MEDIASTINUM AND HILAR STRUCTURES: No masses or contour abnormalities. HEART AND VASCULAR STRUCTURES: Heart normal size. No evidence for failure. BONES: No acute findings. HARDWARE: None in the chest. OTHER: No other significant finding. IMPRESSION: NO SIGNIFICANT RADIOGRAPHIC FINDING IN THE CHEST. TECHNICAL DOCUMENTATION: JOB ID: [id number] [employer]- All Rights Reserved Reading location - IP/workstation name: [email or web address]
== END ==
LOC: OD 13:39
PROVIDERS: ATTEND Internal Medicine
DX: J18.9 Pneumonia, unspecified organism (principal)
CPT/HCPCS: 70220; 71046

== ENCOUNTER 2020-04-10 03:25 | Inpatient (IN) | payer MEDICAID ==
[2020-04-10 04:57] LABS: ABSOLUTE BASOPHILS # (AUTO) 0.1 10^3/uL (0.0-0.2); ABSOLUTE EOSINOPHILS # (AUTO) 0.1 10^3/uL (0.0-0.6); ABSOLUTE LYMPHOCYTES (AUTO) 1.7 10^3/uL (0.5-4.7); ABSOLUTE MONOCYTES (AUTO) 0.5 10^3/uL (0.1-1.4); ABSOLUTE NEUT (AUTO) 3.6 10^3/uL (1.7-8.2); BASOPHILS % (AUTO) 0.8 % (0-2); EOSINOPHILS % (AUTO) 1.5 % (0-6); HEMATOCRIT 37.8 % (36.0-47.0); HEMOGLOBIN 12.9 g/dL (12.0-15.5); LYMPHOCYTES % (AUTO) 28.8 % (13-45); MEAN CORPUSCULAR HGB CONC 34.1 g/dL (32.0-36.0); MEAN CORPUSCULAR VOLUME 94 fl (80-97); MONOCYTES % (AUTO) 9.1 % (3-13); PLATELET COUNT 233 10^3/uL (150-450); RED BLOOD COUNT 4.03 10^6/uL (3.72-5.28); RED CELL DISTRIBUTION WIDTH 14.4 % (11.5-14.0); SEGMENTED NEUTROPHILS % (AUTO) 59.8 % (42-78); TOTAL CELLS COUNTED % (AUTO) 100 %
[2020-04-10 05:19] LABS: ALBUMIN 3.7 g/dL (3.5-5.0); ALKALINE PHOSPHATASE 115 U/L (38-126); ANION GAP 7 (5-19); ASPARTATE AMINO TRANSFERASE 35 U/L (14-36); BILIRUBIN,DIRECT 0.2 mg/dL (0.0-0.4); BILIRUBIN,TOTAL 0.4 mg/dL (0.2-1.3); BLOOD UREA NITROGEN 13 mg/dL (7-20); CALCIUM 8.6 mg/dL (8.4-10.2); CARBON DIOXIDE 31 mmol/L (22-30); CHLORIDE 101 mmol/L (98-107); GLUCOSE 256 mg/dL (75-110); POTASSIUM 4.3 mmol/L (3.6-5.0); TOTAL PROTEIN 7.1 g/dL (6.3-8.2)
--- NOTE | 2020-04-10 05:38 | RADIOLOGY REPORT (SQ) ---
CLINICAL HISTORY: short of breath COMPARISON: 04/10/2020. 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 There is mild pulmonary vascular congestion. There is no pleural effusion. There is no pneumothorax. There are no acute osseous findings. IMPRESSION: No significant change.
[2020-04-10] MEDS ORDERED: DEXAMETHASONE SOD PHOS INJ 10 MG/1 ML VIAL IV ONE (07:23)
[2020-04-10] MEDS ORDERED: IPRATROPIUM/ALBUTEROL 0.5-2.5 MG/3 ML AMPUL NEB ONE (07:24)
--- NOTE | 2020-04-10 07:29 | ER Document Report ---
ED General - General Chief Complaint: Shortness Of Breath Stated Complaint: SHORTNESS OF BREATH/COUGH/WEEZING/NAUSEA Time Seen by Provider: 04/10/20 07:01 Primary Care Provider: MART BELTRAN MD [Primary Care Provider] - Follow up as needed TRAVEL OUTSIDE OF THE [place] IN LAST 30 DAYS: No - HPI Notes: Chief complaint: Breathing problems and cough History of present illness: 54-year-old non-smoking female followed by Dr. Beltran with history of past non-STEMI, hypertension, hyperlipidemia, diabetes mellitus type 2 and morbid obesity with no known discrete exposure to COVID-19 and no prior testing for COVID-19 presenting now with 3-day history of cough productive of pink sputum with associated progressively worsening dyspnea on exertion. She denies any known history of thromboembolic disease or any family history of thromboembolic disease. She denies chest pain. She denies fever chills. She denies any past history of asthma. Past diagnosis of obstructive sleep apnea and was on nocturnal CPAP at one time but says her doctor disco ntinued this and she is no longer using a device. - Related Data Allergies/Adverse Reactions: metformin [Metformin] Allergy (Verified 11/26/17 12:24) Diarrhea cillins Allergy (Uncoded 11/26/17 12:24) Vomiting Home Medications: heart. diabetes. htn med. cholesterol med Past Medical History - General Information source: Patient, [facility] Records - Social History Smoking Status: Never Smoker Chew tobacco use (# tins/day): No Frequency of alcohol use: None Drug Abuse: None Lives with: Family Family History: Hypertension - Past Medical History Cardiac Medical History: Reports: Hx Congestive Heart Failure, Hx DVT, Hx Heart Attack, Hx Hypertension Pulmonary Medical History: Reports: Hx Sleep Apnea Endocrine Medical History: Reports: Hx Diabetes Mellitus Type 2 - Insulin- dependent Renal/ Medical History: Denies: Hx Peritoneal Dialysis GI Medical History: Reports: Hx Gastroesophageal Reflux Disease Musculoskeletal Medical History: Reports Hx Arthritis Psychiatric Medical History: Denies: Hx Depression Infectious Medical History: Denies: Hx C-Diff, Hx HIV, Hx MRSA, Hx VRE Past Surgical History: Reports: Hx Cardiac Catheterization - Patient describes balloon angioplasty., Hx Tubal Ligation - Immunizations Immunizations up to date: Yes Hx Diphtheria, Pertussis, Tetanus Vaccination: No - unk Review of Systems - Review of Systems Notes: Constitutional: Negative for fever. HENT: Negative for sore throat. Eyes: Negative for visual changes. Cardiovascular: Negative for chest pain. Respiratory: As per HPI. Gastrointestinal: Negative for abdominal pain, vomiting or diarrhea. Genitourinary: Negative for dysuria. Musculoskeletal: Negative for back pain. Skin: Negative for rash. Neurological: Negative for headaches, focal weakness or numbness. 10 point ROS negative except as marked above and in HPI. Physical Exam - Vital signs Vitals: Temp Pulse Resp BP Pulse Ox 98.2 F 91 24 H 168/100 H 94 04/10/20 03:34 04/10/20 03:34 04/10/20 03:34 04/10/20 03:34 04/10/20 03:34 - Notes Notes: GENERAL: Obese middle-aged female appearing in no acute distress. SKIN: Good turgor no rashes. HEAD: Normocephalic atraumatic. EYES: PERRLA. EOMI. Conjunctivae and sclerae clear. EARS: CANALS AND TMS CLEAR. NOSE: CLEAR. MOUTH: Moist mucosa. Good dentition. No stridor or edema. No drooling. NECK: Supple. No masses or thyromegaly. No adenopathy. Carotids 2+ without bruits. No JVD. BACK: Symmetrical without tenderness. CHEST: Respirations unlabored. Diffuse faint end expiratory wheezes bilaterally. HEART: Regular rhythm. No murmur gallop or rub. ABDOMEN: Obese. Soft nontender without masses, organomegaly or rebound. Bowel sounds normally active. No bruits. GENITALIA: Deferred. EXTREMITIES: No edema. No calf tenderness. Cap refill less than 1.5 seconds. Dorsalis pedis and posterior tibial pulses 3+ and symmetrical. NEUROLOGICAL: GCS 15. Alert and oriented x3. Normal gait. Fluent speech. Cranial nerves II through XII intact. Sensorimotor and cerebellar normal. Normal tone. PSYCHIATRIC: Appropriate affect. Course - Re-evaluation Re-evalutation: 04/10/20 09:54 Patient presented with bronchospasm and mild hypoxemia. She appears to have new acute hypoxemic respiratory failure which is mild. She received nebulizer treatments. She has been stabilized on low flow nasal oxygen. She is also received IV Decadron. Her chest x-ray did not show any obvious focal infiltrate. We were concerned about the possibility of pulmonary embolus and got a CTA of the chest. No PE was reported by the radiologist but she does have a patchy multi lobar pneumonia present. Overall picture is felt to be highly suggestive of COVID-19 infection. Nasal swab was collected with results pending at this time. We will obtain blood cultures and empirically started the patient on Rocephin and azithromycin. Findings have been reviewed by telephone with Dr. Barragan on-call for Dr. Beltran. He will admit patient to [facility]. 04/10/20 09:56 Findings, clinical impression and plan of treatment have been discussed with patient/family. Understanding of current findings and recommendations has been acknowledged by them and there is agreement regarding disposition and follow-up. - Vital Signs Vital signs: Temp Pulse Resp BP Pulse Ox 97.9 F 87 22 H 142/64 H 95 04/10/20 06:14 04/10/20 06:14 04/10/20 07:46 04/10/20 07:46 04/10/20 07:46 - Laboratory Results Result Diagrams: 04/10/20 04:30 04/10/20 04:30 Laboratory Results Interpreted: 04/10/20 04/10/20 04/10/20 04:30 04:30 04:30 RDW 14.4 H PT 22.6 H ABG pO2 ABG HCO3 ABG Total CO2 ABG O2 Saturation Carbon Dioxide 31 H Glucose 256 H ALT 36 H 04/10/20 08:00 RDW PT ABG pO2 44.7 L ABG HCO3 25.5 H ABG Total CO2 26.7 H ABG O2 Saturation 81.1 L Carbon Dioxide Glucose ALT Critical Laboratory Results Reviewed: Yes Attending or Supervising Physician who Reviewed Labs: HENRY ADAMS - Radiology Results Radiology Results Interpreted: 04/10/20 09:54 Chest X-Ray 04/10/20 03:50 IMPRESSION: No significant change. Chest/Abdomen CTA 04/10/20 07:23 IMPRESSION: 1. No central or segmental pulmonary embolus. 2. Imaging not optimized for evaluation of the lung; however, there does appear to be a rounded airspace opacity of the left lower lobe with similar findings of the lingula and right lower lobe. Findings may represent a developing multi lobar pneumonia. Critical Radiology Results Reviewed: Yes Attending or Supervising Physician who Reviewed Radiology: ADAMS,HENRY E - EKG Interpretation by Me Additional EKG results interpreted by me: 04/10/20 07:35 Twelve-lead EKG reviewed by me contemporaneously: 0418 hrs. Indication for study: Dyspnea Rhythm: Normal sinus Rate: 95 Intervals: Normal intervals QRS axis: +[address]/T wave changes: None Comparison with prior tracing: Since prior tracing of 08/15/2017 rate has slowed Interpretation: Normal sinus rhythm Discharge - Discharge Clinical Impression: Acute hypoxemic respiratory failure Pneumonia Qualifiers: Pneumonia type: due to unspecified organism Laterality: bilateral Lung location: unspecified part of lung Qualified Code(s): J18.9 - Pneumonia, unspecified organism Condition: Good Disposition: ADMITTED INPATIENT Admitting Provider: [facility] Admitted: [facility] Referrals: MART BELTRAN MD [Primary Care Provider] - Follow up as needed
[2020-04-10 07:39] LABS: INTERNATIONAL RATION (INR) 1.98; PROTHROMBIN TIME 22.6 SEC (11.4-15.4)
[2020-04-10 07:40] LABS: PARTIAL THROMBOPLASTIN TIME 29.7 SEC (23.5-35.8)
[2020-04-10 08:20] LABS: ARTERIAL BLOOD BASE EXCESS 0.8 mmol/L; ARTERIAL BLOOD H2CO3 1.24 mmol/L (1.05-1.35); ARTERIAL BLOOD HCO3 25.5 mmol/L (20-24); ARTERIAL BLOOD O2 SATURATION 81.1 % (94-98); ARTERIAL BLOOD PCO2 41.1 mmHg (35-45); ARTERIAL BLOOD PH 7.41 (7.35-7.45); ARTERIAL BLOOD PO2 44.7 mmHg (80-100); ARTERIAL BLOOD TOTAL CO2 26.7 mmol/L (21-25)
[2020-04-10 08:21] LABS: ARTERIAL BLOOD FIO2 ROOM AIR
--- NOTE | 2020-04-10 09:06 | RADIOLOGY REPORT (SQ) ---
EXAM DESCRIPTION: CTA CHEST IMAGES COMPLETED DATE/TIME: 04/10/2020 8:34 am REASON FOR STUDY: dyspnea, hemoptysis COMPARISON: 08/15/2017 TECHNIQUE: CT scan of the chest performed using helical scanning technique with dynamic intravenous contrast injection. Images reviewed with lung, soft tissue and bone windows. Reconstructed coronal and sagittal MPR images reviewed. Additional 3 dimensional post-processing performed to develop Maximal Intensity Projection images (VT P). All images stored on PACS. All CT scanners at this facility use dose modulation, iterative reconstruction, and/or weight based d osing when appropriate to reduce radiation dose to as low as reasonably achievable (ALARA). [facility]: Dose Right [facility]: CareDose [facility]: Dose Right [facility]: Teradose 4D [facility]: [employer] CONTRAST TYPE AND DOSE: contrast/concentration: Isovue 350.00 mmol/ml; Total Contrast Delivered: 75. 0 ml; Total Saline Delivered: 75.0 ml Contrast bolus adequate for pulmonary arteries and aorta. RENAL FUNCTION: BUN 13; creatinine 0.63 RADIATION DOSE: CT Rad equipment meets quality standard of care and radiation dose reduction technElevate Medical ues were employed. CTDIvol: 22.3 - 41.8 mGy. DLP: 1501 mGy-cm. . LIMITATIONS: None. FINDINGS: LUNGS AND PLEURA: Re- demonstration of the right minor fissural lymph node. No suspicious pulmonary nodules or masses. Dependent atelectasis. There appears to be a rounded focal airspace o pacity of the left lower lobe. Likewise, atelectasis versus consolidation is seen of the right lower lobe and lingula. The airways remain patent. Trace right pleural effusion. No pneumothorax. AORTA AND GREAT VESSELS: No aneurysm. Contrast bolus not optimized for the aorta. HEART: No pericardial effusion. Scant coronary artery calcifications. PULMONARY ARTERIES: No emboli visualized in the main pulmonary arteries or the segmental branches. HILAR AND MEDIASTINAL STRUCTURES: No identified masses or abnormal nodes. HARDWARE: None in the chest. UPPER ABDOMEN: No significant findings. Limited exam. THYROID AND OTHER SOFT TISSUES: No masses. No adenopathy. BONES: No acute or significant finding. 3D MIPS: Confirm above findings. OTHER: No other significant finding. IMPRESSION: 1. No central or segmental pulmonary embolus. 2. Imaging not optimized for evaluation of the lung; however, there does appear to be a rounded airs pace opacity of the left lower lobe with similar findings of the lingula and right lower lobe. Findi ngs may represent a developing multi lobar pneumonia. COMMENT: Quality ID # [id number]: Final reports with documentation of one or more dose reduction techniques (e.g., Automated exposure control, adjustment of the mA and/or kV according to patient size, use of iterative reconstruction technique) TECHNICAL DOCUMENTATION: JOB ID: [id number] 2010 [employer]- All Rights Reserved Reading location - IP/workstation name: [email or web address]
--- NOTE | 2020-04-10 09:51 | EKG REPORT ---
SEVERITY:- NORMAL ECG - SINUS RHYTHM : Confirmed by: Brad De La Torre MD 10-Apr-2020 09:50:28
[2020-04-10] MEDS ORDERED: AZITHROMYCIN INJ 500 MG VIAL IV ONE (09:52)
[2020-04-10] MEDS ORDERED: CEFTRIAXONE 1 GM/D5W RTU 1 GM/50 ML RTUPB IV ONE (09:53)
[2020-04-10] MEDS ORDERED: GLUCAGON,HUMAN RECOMB 1 MG INJ IM PRN (19:09)
[2020-04-10] MEDS ORDERED: DEXTROSE 50%-WATER 25 GM/50 ML DISP.SYRIN IV PRN ×2 (19:09)
[2020-04-10] MEDS ORDERED: DEXTROSE 40% GEL 15 GM TUBE PO PRN ×2 (19:09)
[2020-04-10] MEDS ORDERED: IPRATROPIUM/ALBUTEROL 0.5-2.5 MG/3 ML AMPUL NEB PRN (19:10)
[2020-04-10] MEDS ORDERED: AMLODIPINE BESYLATE 10 MG TABLET PO ONE (21:00)
[2020-04-10] MEDS ORDERED: INSULIN GLARGINE,HUM.REC.ANLOG 1,000 UNIT/10 ML VIAL (PYX) SUBCUT ONE (21:15)
[2020-04-10] MEDS: ACETAMINOPHEN 325 MG TABLET PO PRN (21:19)
[2020-04-10] MEDS: METFORMIN HCL 500 MG TABLET PO SCH (21:19)
[2020-04-10] MEDS: INSULIN LISPRO 100 UNIT/ML 3 ML VIAL SUBCUT SCH (21:20)
[2020-04-10] MEDS: METHYLPREDNISOLONE INJ 40 MG/1 ML SDV IV SCH (21:20)
[2020-04-10] MEDS: INSULIN GLARGINE,HUM.REC.ANLOG 1,000 UNIT/10 ML VIAL SUBCUT SCH (21:20)
[2020-04-11] MEDS: PANTOPRAZOLE SODIUM 40 MG TABLET.DR PO SCH (05:53)
[2020-04-11] MEDS: METHYLPREDNISOLONE INJ 40 MG/1 ML SDV IV SCH ×3 (05:53→21:09)
[2020-04-11] MEDS: INSULIN LISPRO 100 UNIT/ML 3 ML VIAL SUBCUT SCH ×4 (10:19→21:10)
[2020-04-11] MEDS: CEFTRIAXONE 1 GM/D5W RTU 1 GM/50 ML RTUPB IV SCH (10:29)
[2020-04-11] MEDS: AZITHROMYCIN 500 MG in DEXTROSE 5%-WATER 250 ML IV SCH (10:29)
[2020-04-11] MEDS: CYANOCOBALAMIN (VITAMIN B-12) 1,000 MCG TABLET PO SCH (10:30)
[2020-04-11] MEDS: ENOXAPARIN SODIUM INJ 40 MG/0.4 ML DISP.SYRIN SUBCUT SCH (10:30)
[2020-04-11] MEDS: METFORMIN HCL 500 MG TABLET PO SCH ×3 (10:30→18:43)
[2020-04-11] MEDS: ASPIRIN 81 MG TABLET, ENT COATED PO SCH (10:30)
[2020-04-11] MEDS: ASCORBIC ACID 500 MG TABLET PO SCH (10:30)
--- NOTE | 2020-04-11 10:44 | PDOC H&P ---
History of Present Illness Admission Date/PCP: 04/10/20 10:29 MART BELTRAN MD Patient complains of: Shortness of breath History of Present Illness: JULIEN GAMBOA is a 54 year old female patient of Dr. Beltran who presented to the ED with complain of progressively worsening shortness of breath on exertion with associated productive cough. She reported sputum as thick, yellowish with pink tinge in color. She reported associated night sweats that blanco s been ongoing for about 1 month. She denied any associated chest pain or exposure to anybody recent diagnosed with fuller virus infection or travel outside her usual are of abotn. Her initial ED evaluation was significant for chest CT revealing bilateral regions of airspace disease process. Her COVID-19 test was reported negative. She was advised hospitalization for further evaluation and management. Her morbidities are as listed below. Past Medical History Cardiac Medical History: Reports: Congestive Heart Failure, DVT, Myocardial Infarction, Hypertension Pulmonary Medical History: Reports: Sleep Apnea Endocrine Medical History: Reports: Diabetes Mellitus Type 2 - Insulin-dependent GI Medical History: Reports: Gastroesophageal Reflux Disease Musculoskeltal Medical History: Reports: Arthritis Psychiatric Medical History: Denies: Depression Hematology: Denies: Anemia, Sickle Cell Disease Infectious Medical History: Denies: Clostridium Difficile, HIV, Methicillin-Resistant Staph Aureus, Vancomycin-Resistant Enterococci Past Surgical History Past Surgical History: Reports: Cardiac Catheterization - Patient describes balloon angioplasty., Tubal Ligation Social History Lives with: Family Smoking Status: Former Smoker Electronic Cigarette use?: No Frequency of Alcohol Use: Rare Hx Recreational Drug Use: No Hx Prescription Drug Abuse: No - Advance Directive Resuscitation Status: Full Code Family History Family History: Hypertension Parental Family History Reviewed: Yes Children Family History Reviewed: Yes Sibling(s) Family History Reviewed.: Yes Medication/Allergy Home Medications: Amlodipine Besylate [Norvasc 10 mg Tablet] 10 mg PO DAILY 04/10/20 Ascorbic Acid [Vitamin C 500 mg Tablet] 500 mg PO DAILY 04/10/20 Aspirin [Ecotrin 81 mg EC Tablet] 81 mg PO DAILY 04/10/20 Atorvastatin Calcium [Lipitor 40 mg Tablet] 40 mg PO QHS 04/10/20 Butalb/Acetaminophen/Caffeine [Jkdvtu-Kbbzjfie-Kify 50-325-40] 1 each PO Q4HP PRN 04/10/20 Cyanocobalamin (Vitamin B-12) [Vitamin B-12 1000 Mcg Tablet] 1,000 mcg PO DAILY 04/10/20 Exenatide [Byetta Inj 10 Mcg/0.04 ml 2.4 ml Pen.injctr] 10 mcg SUBCUT BIDACBS 04/10/20 Insulin Glargine,Hum.rec.anlog [Lantus Insulin 100 Unit/1 ml 10 ml] 100 unit SUBCUT Q12 04/10/20 Isosorbide Mononitrate [Imdur 30 mg Tablet.er] 30 mg PO DAILY 04/10/20 Metformin HCl [Metformin HCl ER] 1,000 mg PO BIDBS 04/10/20 Metoprolol Tartrate [Lopressor 25 mg Tablet] 25 mg PO Q12 04/10/20 Omeprazole 40 mg PO DAILY 04/10/20 Ondansetron HCl 8 mg PO DAILY 04/10/20 Allergies/Adverse Reactions: metformin [Metformin] Allergy (Verified 11/26/17 12:24) Diarrhea cillins Allergy (Uncoded 11/26/17 12:24) Vomiting Review of Systems Constitutional: PRESENT: fatigue, weakness. ABSENT: chills, fever(s), headache(s) Eyes: ABSENT: visual disturbances Ears: ABSENT: hearing changes Cardiovascular: PRESENT: dyspnea on exertion. ABSENT: chest pain, edema, orthropnea, palpitations Respiratory: PRESENT: cough, dyspnea, sputum. ABSENT: hemoptysis Gastrointestinal: PRESENT: heartburn, nausea. ABSENT: abdominal pain, constipation, diarrhea, hematemesis, hematochezia, vomiting Genitourinary: ABSENT: dysuria, hematuria Musculoskeletal: ABSENT: joint swelling Integumentary: ABSENT: rash, wounds Neurological: ABSENT: abnormal gait, abnormal speech, confusion, dizziness, focal weakness, syncope Psychiatric: ABSENT: anxiety, depression, homidical ideation, suicidal ideation Endocrine: ABSENT: cold intolerance, heat intolerance, menstrual abnormalities, polydipsia, polyuria Hematologic/Lymphatic: ABSENT: easy bleeding, easy bruising, lymphadenopathy Allergic/Immunologic: ABSENT: seasonal rhinorrhea Physical Exam Vital Signs: Temp Pulse Resp BP Pulse Ox 98.1 F 94 19 142/81 H 95 04/10/20 15:38 04/10/20 15:38 04/10/20 15:38 04/10/20 15:38 12/25/20 15:38 Intake & Output 04/09/20 04/10/20 04/11/20 06:59 06:59 06:59 Intake Total 50 Balance 50 Weight 155.9 kg General appearance: PRESENT: mild distress - on supplemental oxygen via nasal cannula, morbidly obese Eye exam: PRESENT: conjunctiva pink, EOMI, PERRLA. ABSENT: scleral icterus Ear exam: PRESENT: normal external ear exam Mouth exam: PRESENT: moist Throat exam: ABSENT: post pharyngeal erythema, tonsillar erythema, tonsillar exudate, tonsillogmegaly Neck exam: PRESENT: full ROM. ABSENT: carotid bruit, JVD, lymphadenopathy, thyromegaly Respiratory exam: PRESENT: clear to auscultation dexter, crackles - at lung bases, decreased breath sounds, rhonchi - bilaterally end expiratory phase Cardiovascular exam: PRESENT: RRR, +S1, +S2. ABSENT: diastolic murmur, rubs, systolic murmur Vascular exam: ABSENT: pallor GI/Abdominal exam: PRESENT: normal bowel sounds, soft. ABSENT: distended, guarding, mass, organolmegaly, rebound, tenderness Rectal exam: PRESENT: deferred Extremities exam: ABSENT: pedal edema Neurological exam: PRESENT: alert, awake, oriented to person, oriented to place, oriented to time, oriented to situation, CN II-XII grossly intact. ABSENT: motor sensory deficit Psychiatric exam: PRESENT: appropriate affect, normal mood. ABSENT: homicidal ideation, suicidal ideation Skin exam: PRESENT: dry, warm Results Laboratory Results: 04/10/20 04:30 04/10/20 04:30 04/10/20 04/10/20 04/10/20 04:30 04:30 08:00 WBC 6.0 RBC 4.03 Hgb 12.9 Hct 37.8 MCV 94 MCH 32.0 MCHC 34.1 RDW 14.4 H Plt Count 233 Seg Neutrophils % 59.8 Carbonic Acid 1.24 HCO3/H2CO3 Ratio 20:1 ABG pH 7.41 ABG pCO2 41.1 ABG pO2 44.7 L ABG HCO3 25.5 H ABG O2 Saturation 81.1 L ABG Base Excess 0.8 FiO2 ROOM AIR Sodium 139.0 Potassium 4.3 Chloride 101 Carbon Dioxide 31 H Anion Gap 7 BUN 13 Creatinine 0.54 Est GFR ( Amer) > 60 Glucose 256 H Calcium 8.6 Total Bilirubin 0.4 AST 35 Alkaline Phosphatase 115 Total Protein 7.1 Albumin 3.7 04/10/20 04/10/20 04:30 04:30 Troponin I < 0.012 NT-Pro-B Natriuret Pep 62 Impressions: Chest X-Ray 04/10/20 03:50 IMPRESSION: No significant change. Chest/Abdomen CTA 04/10/20 07:23 IMPRESSION: 1. No central or segmental pulmonary embolus. 2. Imaging not optimized for evaluation of the lung; however, there does appear to be a rounded airspace opacity of the left lower lobe with similar findings of the lingula and right lower lobe. Findings may represent a developing multi lobar pneumonia. Assessment & Plan - Diagnosis (1) Multilobar lung infiltrate Is this a current diagnosis for this admission?: Yes Plan: See covering admitting attending physician orders for details about care plan. (2) GERD (gastroesophageal reflux disease) Qualifiers: Esophagitis presence: without esophagitis Qualified Code(s): K21.9 - Gastro-esophageal reflux disease without esophagitis Is this a current diagnosis for this admission?: Yes Plan: See covering admitting attending physician orders for details about care plan. (3) HTN (hypertension) Qualifiers: Hypertension type: essential hypertension Qualified Code(s): I10 - Essential (primary) hypertension Is this a current diagnosis for this admission?: Yes Plan: See covering admitting attending physician orders for details about care plan. (4) HLD (hyperlipidemia) Qualifiers: Hyperlipidemia type: unspecified Qualified Code(s): E78.5 - Hyperlipidemia, unspecified Is this a current diagnosis for this admission?: Yes Plan: See covering admitting attending physician orders for details about care plan. (5) Obstructive sleep apnea syndrome Is this a current diagnosis for this admission?: Yes Plan: See covering admitting attending physician orders for details about care plan. (6) Morbid obesity with BMI of 60.0-69.9, adult Is this a current diagnosis for this admission?: Yes Plan: See covering admitting attending physician orders for details about care plan. - Time Time Spent: 50 to 70 Minutes Medications reviewed and adjusted accordingly: Yes Anticipated Discharge Disposition: Home with Home Health Anticipated Discharge Timeframe: within 72 hours - Inpatient Certification Based on my medical assessment, after consideration of the patient's comorbidities, presenting symptoms, or acuity I expect that the services needed warrant INPATIENT care.: Yes I certify that my determination is in accordance with my understanding of Medicare's requirements for reasonable and necessary INPATIENT services [42 CFR 412.3e].: Yes Medical Necessity: Significant Comorbidiites Make Outpatient Treatment Too Risky, Need Close Monitoring Due to Risk of Patient Decompensation, Need For IV Fluids, Need For Continuous Telemetry Monitoring, Need for Nebulizer Therapy and Monitoring of Response, Need for IV Antibiotics, Risk of Complication if Not Cared For in Hospital, Risk of Diagnosis Which Will Require Inpatient Eval/Care/Monitoring Post Hospital Care: D/[employer] Documentation - Plan Summary Plan Summary: See covering admitting attending physician orders for details about care plan.
[2020-04-11] MEDS: INSULIN GLARGINE,HUM.REC.ANLOG 1,000 UNIT/10 ML VIAL SUBCUT SCH ×2 (14:02→21:09)
--- NOTE | 2020-04-11 14:02 | PDOC PROGRESS REPORT ---
Subjective Date:: 04/11/20 Subjective:: Patient reported some improvement in her breathing but remain on supplemental ox ygen at 2L/min. No fever or chills. No chest pain. No abdominal pain, nausea or vomiting. Reason For Visit: LEFT LOWER LOBE PNEMONIA; DM TYPE 2; HTN; CAD; VANESA Physical Exam Vital Signs: Temp Pulse Resp BP Pulse Ox 98.4 F 91 20 145/92 H 93 04/11/20 07:53 04/11/20 07:53 04/11/20 07:53 04/11/20 07:53 04/11/20 07:53 Intake & Output 04/10/20 04/11/20 04/12/20 06:59 06:59 06:59 Intake Total 310 Balance 310 Weight 155.9 kg 158.7 kg General appearance: PRESENT: mild distress, morbidly obese Head exam: PRESENT: atraumatic, normocephalic Eye exam: PRESENT: conjunctiva pink. ABSENT: scleral icterus Mouth exam: PRESENT: moist Respiratory exam: PRESENT: decreased breath sounds - at lung bases, rhonchi Cardiovascular exam: PRESENT: RRR, +S1, +S2. ABSENT: diastolic murmur, rubs, systolic murmur Vascular exam: ABSENT: pallor GI/Abdominal exam: PRESENT: normal bowel sounds, soft. ABSENT: tenderness Extremities exam: ABSENT: pedal edema Neurological exam: PRESENT: alert, awake Psychiatric exam: PRESENT: appropriate affect, normal mood. ABSENT: homicidal ideation, suicidal ideation Skin exam: PRESENT: dry, warm Results Laboratory Results: 04/10/20 04:30 04/10/20 04:30 04/10/20 04/10/20 04:30 04:30 Troponin I < 0.012 NT-Pro-B Natriuret Pep 62 Impressions: Chest X-Ray 04/10/20 03:50 IMPRESSION: No significant change. Chest/Abdomen CTA 04/10/20 07:23 IMPRESSION: 1. No central or segmental pulmonary embolus. 2. Imaging not optimized for evaluation of the lung; however, there does appear to be a rounded airspace opacity of the left lower lobe with similar findings of the lingula and right lower lobe. Findings may represent a developing multi lobar pneumonia. Assessment & Plan - Diagnosis (1) Pneumonia Qualifiers: Pneumonia type: due to unspecified organism Laterality: bilateral Lung location: unspecified part of lung Qualified Code(s): J18.9 - Pneumonia, unspecified organism Is this a current diagnosis for this admission?: Yes Plan: Continue IV Azithromycin and Aztreonam coverage. (2) Multilobar lung infiltrate Is this a current diagnosis for this admission?: Yes (3) GERD (gastroesophageal reflux disease) Qualifiers: Esophagitis presence: without esophagitis Qualified Code(s): K21.9 - Gastro-esophageal reflux disease without esophagitis Is this a current diagnosis for this admission?: Yes (4) HTN (hypertension) Qualifiers: Hypertension type: essential hypertension Qualified Code(s): I10 - Essential (primary) hypertension Is this a current diagnosis for this admission?: Yes (5) HLD (hyperlipidemia) Qualifiers: Hyperlipidemia type: unspecified Qualified Code(s): E78.5 - Hyperlipidemia, unspecified Is this a current diagnosis for this admission?: Yes (6) Obstructive sleep apnea syndrome Is this a current diagnosis for this admission?: Yes (7) Morbid obesity with BMI of 60.0-69.9, adult Is this a current diagnosis for this admission?: Yes - Time Time Spent with patient: 25-34 minutes Level of Care: IMCU Medications reviewed and adjusted accordingly: Yes Anticipated discharge: Home with Homehealth Anticipated DC Timeframe: within 72 hours - Inpatient Certification Based on my medical assessment, after consideration of the patient's comorbidities, presenting symptoms, or acuity I expect that the services needed warrant INPATIENT care.: Yes I certify that my determination is in accordance with my understanding of Medicare's requirements for reasonable and necessary INPATIENT services [42 CFR 412.3e].: Yes Medical Necessity: Significant Comorbidiites Make Outpatient Treatment Too Risky, Need Close Monitoring Due to Risk of Patient Decompensation, Need For IV Fluids, Need For Continuous Telemetry Monitoring, Need for Nebulizer Therapy and Monitoring of Response, Need for IV Antibiotics, Risk of Complication if Not Ca red For in Hospital, Risk of Diagnosis Which Will Require Inpatient Eval/Care/Monitoring Post Hospital Care: D/C Bulk Station Agent Documentation - Plan Summary Plan Summary: Continue IV Azithromycin and Aztreonam coverage. There is concern about aspiration as cause of her pneumonia in view of her morbid obesity, VANESA, and GERD and multiple sites involvement. Maintain on all other current medication management.
[2020-04-11] MEDS ORDERED: (PENDING PHARMACY ID) (Butalb/Acetaminophen/Caffeine [Butalb-Acetamin-Caff 50-325-40] 1 EA PO PRN (15:23)
[2020-04-11] MEDS ORDERED: NAPROXEN 500 MG PO PRN (15:23)
[2020-04-11] MEDS ORDERED: NAPROXEN 250 MG TABLET PO PRN (15:41)
[2020-04-11] MEDS ORDERED: BUTALB/ACETAMINOPHEN/CAFFEINE 1 TAB EACH PO PRN (15:46)
[2020-04-11] MEDS: ACETAMINOPHEN 325 MG TABLET PO PRN (20:26)
[2020-04-11] MEDS: EXENATIDE INJ 10 MCG/0.04 ML 2.4 ML PEN.INJCTR SUBCUT SCH (20:42)
[2020-04-11] MEDS: METOPROLOL TARTRATE 25 MG TABLET PO SCH (21:09)
[2020-04-11] MEDS: ATORVASTATIN CALCIUM 40 MG TABLET PO SCH (21:09)
[2020-04-11] MEDS ORDERED: AMLODIPINE BESYLATE 10 MG TABLET PO SCH (22:00)
[2020-04-12] MEDS: METFORMIN HCL 500 MG TABLET PO SCH ×4 (00:10→17:40)
[2020-04-12] MEDS: PANTOPRAZOLE SODIUM 40 MG TABLET.DR PO SCH (06:13)
[2020-04-12] MEDS: METHYLPREDNISOLONE INJ 40 MG/1 ML SDV IV SCH ×3 (06:14→21:23)
[2020-04-12] MEDS ORDERED: (PENDING PHARMACY ID) (Omeprazole [Omeprazole] 20 MG Capsule.Dr) PO SCH (08:00)
[2020-04-12] MEDS: INSULIN LISPRO 100 UNIT/ML 3 ML VIAL SUBCUT SCH ×4 (08:15→21:22)
[2020-04-12] MEDS: EXENATIDE INJ 10 MCG/0.04 ML 2.4 ML PEN.INJCTR SUBCUT SCH ×2 (08:15→16:06)
[2020-04-12] MEDS: INSULIN GLARGINE,HUM.REC.ANLOG 1,000 UNIT/10 ML VIAL SUBCUT SCH ×2 (08:15→21:22)
[2020-04-12] MEDS: ONDANSETRON HCL 8 MG TABLET PO SCH (09:07)
[2020-04-12] MEDS: ASCORBIC ACID 500 MG TABLET PO SCH (09:08)
[2020-04-12] MEDS: CYANOCOBALAMIN (VITAMIN B-12) 1,000 MCG TABLET PO SCH (09:08)
[2020-04-12] MEDS: ASPIRIN 81 MG TABLET, ENT COATED PO SCH (09:08)
[2020-04-12] MEDS: AMLODIPINE BESYLATE 10 MG TABLET PO SCH (09:08)
[2020-04-12] MEDS: METOPROLOL TARTRATE 25 MG TABLET PO SCH ×2 (09:08→21:21)
[2020-04-12] MEDS: ISOSORBIDE MONONITRATE 30 MG TAB.ER.24H PO SCH (09:08)
[2020-04-12] MEDS: ENOXAPARIN SODIUM INJ 40 MG/0.4 ML DISP.SYRIN SUBCUT SCH (09:09)
[2020-04-12] MEDS: CEFTRIAXONE 1 GM/D5W RTU 1 GM/50 ML RTUPB IV SCH (09:20)
[2020-04-12] MEDS: AZITHROMYCIN 500 MG in DEXTROSE 5%-WATER 250 ML IV SCH (09:21)
[2020-04-12] MEDS ORDERED: ONDANSETRON HCL 4 MG PO SCH (10:00)
--- NOTE | 2020-04-12 15:39 | PDOC PROGRESS REPORT ---
Subjective Date:: 04/12/20 Subjective:: Patient denied any chest pain or difficulty with breathing but still experience dyspnea with efforts like walking to her bathroom. No fever or chills. No abdominal pain, nausea or vomiting. Patient reported right distal forearm pain that has worsen over last couple of weeks. She denied any fall or trauma. Reason For Visit: LEFT LOWER LOBE PNEMONIA; DM TYPE 2; HTN; CAD; VANESA Physical Exam Vital Signs: Temp Pulse Resp BP Pulse Ox 98.3 F 91 16 126/68 H 95 04/12/20 12:18 04/12/20 14:00 04/12/20 12:27 04/12/20 12:18 04/12/20 12:27 Intake & Output 04/11/20 04/12/20 04/13/20 06:59 06:59 06:59 Intake Total 310 1587 730 Output Total 700 Balance 310 887 730 Weight 158.7 kg 157.3 kg Physical Exam: General appearance: PRESENT: no acute distress, morbidly obese Head exam: PRESENT: atraumatic, normocephalic Eye exam: PRESENT: conjunctiva pink. ABSENT: pallor, scleral icterus Mouth exam: PRESENT: moist Respiratory exam: PRESENT: decreased breath sounds - at lung bases, minimal expiratory rhonchi Cardiovascular exam: PRESENT: RRR, +S1, +S2. ABSENT: diastolic murmur, rubs, systolic murmur GI/Abdominal exam: PRESENT: normal bowel sounds, soft. ABSENT: tenderness Extremities exam: PRESENT: Tenderness right forearm to palpation. ABSENT: pedal edema Neurological exam: PRESENT: alert, awake Psychiatric exam: PRESENT: appropriate affect, normal mood. ABSENT: homicidal ideation, suicidal ideation Skin exam: PRESENT: dry, warm Results Laboratory Results: 04/10/20 04:30 04/10/20 04:30 04/10/20 12:30 Blood Blood Culture (PCR) - Final Staphylococcus Species 04/10/20 04/10/20 04:30 04:30 Troponin I < 0.012 NT-Pro-B Natriuret Pep 62 Impressions: Chest X-Ray 04/10/20 03:50 IMPRESSION: No significant change. Chest/Abdomen CTA 04/10/20 07:23 IMPRESSION: 1. No central or segmental pulmonary embolus. 2. Imaging not optimized for evaluation of the lung; however, there does appear to be a rounded airspace opacity of the left lower lobe with similar findings of the lingula and right lower lobe. Findings may represent a developing multi lobar pneumonia. Assessment & Plan - Diagnosis (1) Pneumonia Qualifiers: Pneumonia type: due to unspecified organism Laterality: bilateral Lung location: unspecified part of lung Qualified Code(s): J18.9 - Pneumonia, unspecified organism Is this a current diagnosis for this admission?: Yes (2) Multilobar lung infiltrate Is this a current diagnosis for this admission?: Yes (3) GERD (gastroesophageal reflux disease) Qualifiers: Esophagitis presence: without esophagitis Qualified Code(s): K21.9 - Gastro-esophageal reflux disease without esophagitis Is this a current diagnosis for this admission?: Yes (4) HTN (hypertension) Qualifiers: Hypertension type: essential hypertension Qualified Code(s): I10 - Es sential (primary) hypertension Is this a current diagnosis for this admission?: Yes (5) HLD (hyperlipidemia) Qualifiers: Hyperlipidemia type: unspecified Qualified Code(s): E78.5 - Hyperlipidemia, unspecified Is this a current diagnosis for this admission?: Yes (6) Obstructive sleep apnea syndrome Is this a current diagnosis for this admission?: Yes (7) Morbid obesity with BMI of 60.0-69.9, adult Is this a current diagnosis for this admission?: Yes - Time Time Spent with patient: 25-34 minutes Level of Care: IMCU Medications reviewed and adjusted accordingly: Yes Anticipated discharge: Home with Homehealth Anticipated DC Timeframe: within 72 hours - Inpatient Certification Based on my medical assessment, after consideration of the patient's comorbidities, presenting symptoms, or acuity I expect that the services needed warrant INPATIENT care.: Yes I certify that my determination is in accordance with my understanding of Medicare's requirements for reasonable and necessary INPATIENT services [42 CFR 412.3e].: Yes Medical Necessity: Significant Comorbidiites Make Outpatient Treatment Too Risky, Need Close Monitoring Due to Risk of Patient Decompensation, Need For IV Fluids, Need For Continuous Telemetry Monitoring, Need for IV Antibiotics, Risk of Complication if Not Cared For in Hospital, Risk of Diagnosis Which Will Require Inpatient Eval/Care/Monitoring Post Hospital Care: D/C Wafer Polisher Documentation - Plan Summary Plan Summary: Decrease Solu Medrol to 40 mg IV q12. D/C Naproxen due to increase risk of GI bleeding. Continue other current medication management. X ray right forearm/wrist. Obtain ESR and CRP. Obtain CBC with diff and CMP in AM.
[2020-04-12] MEDS ORDERED: FUROSEMIDE INJ/PF 20 MG/2 ML SDV IV ONE (17:30)
[2020-04-12] MEDS: ACETAMINOPHEN 325 MG TABLET PO PRN (20:27)
[2020-04-12] MEDS: ATORVASTATIN CALCIUM 40 MG TABLET PO SCH (21:21)
[2020-04-13] MEDS: PANTOPRAZOLE SODIUM 40 MG TABLET.DR PO SCH (05:49)
[2020-04-13] MEDS: METFORMIN HCL 500 MG TABLET PO SCH ×4 (05:49→17:43)
[2020-04-13 06:00] LABS: ABSOLUTE LYMPHOCYTES (AUTO) 1.5 10^3/uL (0.5-4.7); ABSOLUTE MONOCYTES (AUTO) 0.5 10^3/uL (0.1-1.4); ABSOLUTE NEUT (AUTO) 5.5 10^3/uL (1.7-8.2); BASOPHILS % (AUTO) 0.4 % (0-2); HEMATOCRIT 37.4 % (36.0-47.0); HEMOGLOBIN 12.7 g/dL (12.0-15.5); LYMPHOCYTES % (AUTO) 20.4 % (13-45); MEAN CORPUSCULAR HEMOGLOBIN 32.1 pg (27.0-33.4); MEAN CORPUSCULAR HGB CONC 33.9 g/dL (32.0-36.0); MEAN CORPUSCULAR VOLUME 95 fl (80-97); MONOCYTES % (AUTO) 6.2 % (3-13); PLATELET COUNT 249 10^3/uL (150-450); RED BLOOD COUNT 3.95 10^6/uL (3.72-5.28); TOTAL CELLS COUNTED % (AUTO) 100 %; WHITE BLOOD COUNT 7.5 10^3/uL (4.0-10.5)
[2020-04-13 06:25] LABS: ALBUMIN 3.7 g/dL (3.5-5.0); ALKALINE PHOSPHATASE 94 U/L (38-126); ANION GAP 7 (5-19); ASPARTATE AMINO TRANSFERASE 23 U/L (14-36); BILIRUBIN,DIRECT 0.1 mg/dL (0.0-0.4); BILIRUBIN,TOTAL 0.4 mg/dL (0.2-1.3); BLOOD UREA NITROGEN 13 mg/dL (7-20); CALCIUM 9.3 mg/dL (8.4-10.2); CARBON DIOXIDE 31 mmol/L (22-30); CHLORIDE 99 mmol/L (98-107); GLUCOSE 299 mg/dL (75-110); POTASSIUM 4.5 mmol/L (3.6-5.0); TOTAL PROTEIN 7.2 g/dL (6.3-8.2)
[2020-04-13] MEDS: INSULIN LISPRO 100 UNIT/ML 3 ML VIAL SUBCUT SCH ×4 (08:53→21:58)
[2020-04-13] MEDS: EXENATIDE INJ 10 MCG/0.04 ML 2.4 ML PEN.INJCTR SUBCUT SCH ×2 (08:53→17:43)
[2020-04-13] MEDS: AZITHROMYCIN 500 MG in DEXTROSE 5%-WATER 250 ML IV SCH (09:07)
[2020-04-13] MEDS: CEFTRIAXONE 1 GM/D5W RTU 1 GM/50 ML RTUPB IV SCH (09:08)
[2020-04-13] MEDS: ONDANSETRON HCL 8 MG TABLET PO SCH (09:08)
[2020-04-13] MEDS: ENOXAPARIN SODIUM INJ 40 MG/0.4 ML DISP.SYRIN SUBCUT SCH (09:09)
[2020-04-13] MEDS: ASCORBIC ACID 500 MG TABLET PO SCH (09:09)
[2020-04-13] MEDS: ISOSORBIDE MONONITRATE 30 MG TAB.ER.24H PO SCH (09:09)
[2020-04-13] MEDS: ASPIRIN 81 MG TABLET, ENT COATED PO SCH (09:09)
[2020-04-13] MEDS: CYANOCOBALAMIN (VITAMIN B-12) 1,000 MCG TABLET PO SCH (09:10)
[2020-04-13] MEDS: AMLODIPINE BESYLATE 10 MG TABLET PO SCH (09:10)
[2020-04-13] MEDS: METOPROLOL TARTRATE 25 MG TABLET PO SCH ×2 (09:10→21:57)
[2020-04-13] MEDS: INSULIN GLARGINE,HUM.REC.ANLOG 1,000 UNIT/10 ML VIAL SUBCUT SCH ×2 (09:11→21:59)
[2020-04-13] MEDS: METHYLPREDNISOLONE INJ 40 MG/1 ML SDV IV SCH (09:11)
--- NOTE | 2020-04-13 18:41 | CDI QUERY ---
<MOHINDER STAFFORD - Last Filed: 04/13/20 18:40> CDI Query CDI Review: We are seeking further clarification of documentation to reflect the severity of illness of your patient. Per Progress Notes: (1) Pneumonia Qualifiers: Pneumonia type: due to unspecified organism Laterality: bilateral Lung location: unspecified part of lung Qualified Code(s): J18.9 - Pneumonia, unspecified organism Is this a current diagnosis for this admission?: Yes Plan: Continue IV Azithromycin and Aztreonam coverage. Chest/Abdomen CTA 04/10/20 07:23 IMPRESSION: 1. No central or segmental pulmonary embolus. 2. Imaging not optimized for evaluation of the lung; however, there does appear to be a rounded airspace opacity of the left lower lobe with similar findings of the lingula and right lower lobe. Findings may represent a developing multi lobar pneumonia. Based on your medical judgment, can you further clarify in the Progress Notes ( and carry through to the Discharge Summary) the most likely or suspected underlying cause of the pneumonia: Aspiration pneumonia Viral pneumonia Gram negative pneumonia Staphylococcus pneumonia Pseudomonas pneumonia Pneumococcus pneumonia Other cause (please specify) None of the above / Not applicable Thank you for your consideration. FLORINA PalaciosN RN Clinical Kiln Loader Physician Advisor [email or web address] <ABBI MILES - Last Filed: 04/13/20 18:49> CDI Query Agree with Query: Yes - Please review my note. I did mentioned that she might have had aspiration due to her GERD, VANESA, and morbid obesity. Classify as Aspiration Pneumonia and follow culture findings. Patient belong to . He may include this thought and diagnosis in his progress note to discharge. Thanks.
--- NOTE | 2020-04-13 21:13 | PDOC PROGRESS REPORT ---
Subjective Date:: 04/13/20 Subjective:: Patient seen by the bedside, she was admitted for the management of multilobar p neumonia associated with acute hypoxemic respiratory failure, negative for Covid. She has swelling of the right wrist that suggest gout Reason For Visit: LEFT LOWER LOBE PNEMONIA; DM TYPE 2; HTN; CAD; VANESA Physical Exam Vital Signs: Temp Pulse Resp BP Pulse Ox 97.9 F 83 20 137/72 H 98 04/13/20 20:31 04/13/20 20:31 04/13/20 20:31 04/13/20 20:31 04/13/20 20:31 Intake & Output 04/12/20 04/13/20 04/14/20 06:59 06:59 06:59 Intake Total 1587 1390 360 Output Total 700 Balance 887 1390 360 Weight 157.3 kg 161.7 kg General appearance: PRESENT: no acute distress Eye exam: PRESENT: PERRLA Respiratory exam: PRESENT: clear to auscultation dexter Cardiovascular exam: PRESENT: +S1, +S2 GI/Abdominal exam: PRESENT: soft Neurological exam: PRESENT: alert Results Laboratory Results: 04/13/20 05:30 04/13/20 05:30 04/13/20 04/13/20 05:30 05:30 WBC 7.5 RBC 3.95 Hgb 12.7 Hct 37.4 MCV 95 MCH 32.1 MCHC 33.9 RDW 14.0 Plt Count 249 Seg Neutrophils % 73.0 Sodium 137.0 Potassium 4.5 Chloride 99 Carbon Dioxide 31 H Anion Gap 7 BUN 13 Creatinine 0.55 Est GFR ( Amer) > 60 Glucose 299 H Calcium 9.3 Total Bilirubin 0.4 AST 23 Alkaline Phosphatase 94 Total Protein 7.2 Albumin 3.7 04/10/20 04/10/20 04:30 04:30 Troponin I < 0.012 NT-Pro-B Natriuret Pep 62 Impressions: Chest X-Ray 04/10/20 03:50 IMPRESSION: No significant change. Chest/Abdomen CTA 04/10/20 07:23 IMPRESSION: 1. No central or segmental pulmonary embolus. 2. Imaging not optimized for evaluation of the lung; however, there does appear to be a rounded airspace opacity of the left lower lobe with similar findings of the lingula and right lower lobe. Findings may represent a developing multi lobar pneumonia. Assessment & Plan - Diagnosis (1) Acute hypoxemic respiratory failure Is this a current diagnosis for this admission?: Yes Plan: Continue supplemental oxygen (2) Bilateral pneumonia Qualifiers: Pneumonia type: due to unspecified organism Lung location: unspecified part of lung Qualified Code(s): J18.9 - Pneumonia, unspecified organism Is this a current diagnosis for this admission?: Yes Plan: Continue antibiotic, DC Solu-Medrol, get a chest x-ray (3) Morbid (severe) obesity due to excess calories Is this a current diagnosis for this admission?: Yes (4) Type 2 diabetes mellitus with diabetic polyneuropathy Qualifiers: Diabetes mellitus termite technician insulin use: without usp use Qualified Code(s): E11.42 - Type 2 diabetes mellitus with diabetic polyneuropathy Is this a current diagnosis for this admission?: Yes (5) Acute gouty arthropathy Is this a current diagnosis for this admission?: Yes Plan: Start colchicine 0.6 mg PO BID - Time Time Spent with patient: 35 or more minutes Level of Care: IMCU Medications reviewed and adjusted accordingly: Yes Anticipated discharge: Home Anticipated DC Timeframe: Other - Inpatient Certification Based on my medical assessment, after consideration of the patient's comorbidities, presenting symptoms, or acuity I expect that the services needed warrant INPATIENT care.: Yes I certify that my determination is in accordance with my understanding of Medicare's requirements for reasonable and necessary INPATIENT services [42 CFR 412.3e].: Yes
[2020-04-13] MEDS: COLCHICINE 0.6 MG TABLET PO SCH (21:57)
[2020-04-13] MEDS: ATORVASTATIN CALCIUM 40 MG TABLET PO SCH (21:57)
--- NOTE | 2020-04-13 22:29 | RADIOLOGY REPORT (SQ) ---
CLINICAL HISTORY: pneumonia COMPARISON: 03/06/2019. TECHNIQUE: XR CHEST 1 VIEW 04/13/2020 12:00 AM CERAMIC TILE SETTER FINDINGS: Cardiac silhouette is normal in size. Lungs are clear without consolidation, atelectasis, mass or edema. There is no pleural effusion. There is no pneumothorax. There are no acute osseous findings. IMPRESSION: Clear lungs.
[2020-04-14] MEDS: METFORMIN HCL 500 MG TABLET PO SCH ×5 (00:28→23:19)
[2020-04-14] MEDS: PANTOPRAZOLE SODIUM 40 MG TABLET.DR PO SCH (06:14)
[2020-04-14] MEDS: INSULIN LISPRO 100 UNIT/ML 3 ML VIAL SUBCUT SCH ×4 (09:00→22:29)
[2020-04-14] MEDS: INSULIN GLARGINE,HUM.REC.ANLOG 1,000 UNIT/10 ML VIAL SUBCUT SCH ×2 (09:15→22:30)
[2020-04-14] MEDS: ENOXAPARIN SODIUM INJ 40 MG/0.4 ML DISP.SYRIN SUBCUT SCH (09:15)
[2020-04-14] MEDS: COLCHICINE 0.6 MG TABLET PO SCH ×2 (09:16→22:28)
[2020-04-14] MEDS: CEFTRIAXONE 1 GM/D5W RTU 1 GM/50 ML RTUPB IV SCH (09:16)
[2020-04-14] MEDS: AMLODIPINE BESYLATE 10 MG TABLET PO SCH (09:16)
[2020-04-14] MEDS: ONDANSETRON HCL 8 MG TABLET PO SCH (09:16)
[2020-04-14] MEDS: ISOSORBIDE MONONITRATE 30 MG TAB.ER.24H PO SCH (09:16)
[2020-04-14] MEDS: CYANOCOBALAMIN (VITAMIN B-12) 1,000 MCG TABLET PO SCH (09:16)
[2020-04-14] MEDS: ASCORBIC ACID 500 MG TABLET PO SCH (09:17)
[2020-04-14] MEDS: EXENATIDE INJ 10 MCG/0.04 ML 2.4 ML PEN.INJCTR SUBCUT SCH ×2 (09:17→17:53)
[2020-04-14] MEDS: METOPROLOL TARTRATE 25 MG TABLET PO SCH ×2 (09:17→22:28)
[2020-04-14] MEDS: ASPIRIN 81 MG TABLET, ENT COATED PO SCH (09:17)
[2020-04-14] MEDS: AZITHROMYCIN 500 MG in DEXTROSE 5%-WATER 250 ML IV SCH (10:27)
[2020-04-14] MEDS: ACETAMINOPHEN 325 MG TABLET PO PRN (11:09)
[2020-04-14] MEDS ORDERED: OXYCODONE-ACETAMINOPHEN 5-325 MG TABLET PO PRN (12:44)
[2020-04-14] MEDS ORDERED: ONDANSETRON HCL 8 MG TABLET PO PRN (14:05)
[2020-04-14] MEDS: ONDANSETRON 4 MG TAB.RAPDIS PO PRN ×2 (17:56→22:29)
--- NOTE | 2020-04-14 20:51 | PDOC PROGRESS REPORT ---
Subjective Date:: 04/14/20 Subjective:: Patient still very symptomatic with shortness of breath on mild exertion, chest x-ray from yesterday was clear, she is very obese, she has risk factor for ischemic heart disease, needs to rule out cardiac cause for shortness of breath, consult cardiology Reason For Visit: LEFT LOWER LOBE PNEMONIA; DM TYPE 2; HTN; CAD; VANESA Physical Exam Vital Signs: Temp Pulse Resp BP Pulse Ox 97.9 F 90 18 128/75 H 96 04/14/20 17:50 04/14/20 20:09 04/14/20 20:09 04/14/20 17:50 04/14/20 20:09 Intake & Output 04/13/20 04/14/20 04/15/20 06:59 06:59 06:59 Intake Total 1390 660 510 Balance 1390 660 510 Weight 161.7 kg 155.7 kg General appearance: PRESENT: no acute distress, morbidly obese Eye exam: PRESENT: PERRLA Respiratory exam: PRESENT: clear to auscultation dexter Cardiovascular exam: PRESENT: +S1, +S2 GI/Abdominal exam: PRESENT: soft Neurological exam: PRESENT: alert Results Laboratory Results: 04/13/20 05:30 04/13/20 05:30 04/10/20 12:30 Blood Blood Culture (PCR) - Final Staphylococcus Species 04/10/20 12:30 Blood Blood Culture - Final Staphylococcus Hominis 04/10/20 04/10/20 04:30 04:30 Troponin I < 0.012 NT-Pro-B Natriuret Pep 62 Impressions: Chest/Abdomen CTA 04/10/20 07:23 IMPRESSION: 1. No central or segmental pulmonary embolus. 2. Imaging not optimized for evaluation of the lung; however, there does appear to be a rounded airspace opacity of the left lower lobe with similar findings of the lingula and right lower lobe. Findings may represent a developing multi lobar pneumonia. Chest X-Ray 04/13/20 00:00 IMPRESSION: Clear lungs. Assessment & Plan - Diagnosis (1) Acute hypoxemic respiratory failure Is this a current diagnosis for this admission?: Yes Plan: Continue supplemental oxygen (2) Bilateral pneumonia Qualifiers: Pneumonia type: due to unspecified organism Lung location: unspecified part of lung Qualified Code(s): J18.9 - Pneumonia, unspecified organism Is this a current diagnosis for this admission?: Yes Plan: Chest x-ray is clear but patient is symptomatic with shortness of breath, needs to rule out cardiac cause, multiple risk factors for ischemic heart disease (3) Morbid (severe) obesity due to excess calories Is this a current diagnosis for this admission?: Yes (4) Type 2 diabetes mellitus with diabetic polyneuropathy Qualifiers: Diabetes mellitus manager long term care insulin use: without manager long term care use Qualified Code(s): E11.42 - Type 2 diabetes mellitus with diabetic polyneuropathy Is this a current diagnosis for this admission?: Yes (5) Acute gouty arthropathy Is this a current diagnosis for this admission?: Yes - Time Time Spent with patient: 35 or more minutes Level of Care: IMCU Medications reviewed and adjusted accordingly: Yes Anticipated discharge: Home Anticipated DC Timeframe: within 72 hours
[2020-04-14] MEDS: ATORVASTATIN CALCIUM 40 MG TABLET PO SCH (22:28)
[2020-04-14] MEDS: DIPHENOXYLATE HCL/ATROP SULF 2.5-0.025 MG TABLET PO PRN (22:29)
[2020-04-15] MEDS: METFORMIN HCL 500 MG TABLET PO SCH ×3 (05:32→17:40)
[2020-04-15] MEDS: PANTOPRAZOLE SODIUM 40 MG TABLET.DR PO SCH (05:32)
[2020-04-15] MEDS: ENOXAPARIN SODIUM INJ 40 MG/0.4 ML DISP.SYRIN SUBCUT SCH (09:16)
[2020-04-15] MEDS: CEFTRIAXONE 1 GM/D5W RTU 1 GM/50 ML RTUPB IV SCH (09:16)
[2020-04-15] MEDS: AMLODIPINE BESYLATE 10 MG TABLET PO SCH (09:17)
[2020-04-15] MEDS: CYANOCOBALAMIN (VITAMIN B-12) 1,000 MCG TABLET PO SCH (09:17)
[2020-04-15] MEDS: METOPROLOL TARTRATE 25 MG TABLET PO SCH ×2 (09:17→22:13)
[2020-04-15] MEDS: INSULIN LISPRO 100 UNIT/ML 3 ML VIAL SUBCUT SCH ×4 (09:17→22:12)
[2020-04-15] MEDS: ASCORBIC ACID 500 MG TABLET PO SCH (09:17)
[2020-04-15] MEDS: EXENATIDE INJ 10 MCG/0.04 ML 2.4 ML PEN.INJCTR SUBCUT SCH ×2 (09:17→17:40)
[2020-04-15] MEDS: ASPIRIN 81 MG TABLET, ENT COATED PO SCH (09:17)
[2020-04-15] MEDS: COLCHICINE 0.6 MG TABLET PO SCH ×2 (09:18→22:52)
[2020-04-15] MEDS: ISOSORBIDE MONONITRATE 30 MG TAB.ER.24H PO SCH (09:18)
[2020-04-15] MEDS: INSULIN GLARGINE,HUM.REC.ANLOG 1,000 UNIT/10 ML VIAL SUBCUT SCH ×2 (09:20→22:13)
[2020-04-15] MEDS: ONDANSETRON HCL 8 MG TABLET PO SCH (09:20)
[2020-04-15] MEDS: AZITHROMYCIN 500 MG in DEXTROSE 5%-WATER 250 ML IV SCH (10:24)
[2020-04-15] MEDS: ONDANSETRON 4 MG TAB.RAPDIS PO PRN ×2 (10:42→19:59)
--- NOTE | 2020-04-15 20:00 | PDOC CONSULTATION ---
Consultation-Blank Consultation: CARDIOLOGY CONSULTATION by Dr. Ele Smith on 04/15/2020. Patient seen at 2 PM. 60 minutes spent with patient more than 50% of time spent in direct patient care. With the patient's permission I have reviewed the records from [facility] 60 minutes spent on the patient more than 50% of time spent direct patient care. HISTORY OF PRESENT ILLNESS: Patient is a 54-year-old morbidly obese Afro- [place] female with known history of coronary artery disease, hypertension, diabetes mellitus, GERD, and asthma, who was admitted with progressively increasing shortness of breath with wheezing she also states she had cough a few days prior to the admission along with her wheezing and shortness of breath and was productive of yellowish sputum. She denies any chest pain or discomfort. There is no PND but she has chronic orthopnea. Clinically she looks like someone was obstructive sleep apnea, she states that she does not know if she snores or not. She has a prior history of CVA documented by CAT scan at [facility] from which she is fully recovered. She also has a history of coronary artery disease. And has had a PTCA of the obtuse marginal branch of the left circumflex. This was in 2014. At that time there left anterior descending artery and the right coronary artery had mild nonobstructive disease. The PTCA was done and no stent was placed since the caliber of the vessel was small. She has not had a stress test after that. Her echo in May 2017 showed in [facility] that the left ventricle is normal in size there is concentric remodeling of the left ventricle and LV ejection fraction of 60% to 65%. There is no obvious regional wall motion abnormalities. There is no thrombus. Tissue Doppler pattern suggests abnormal relaxation. Left atrium was normal. The right atrium and right ventricle were normal. The aortic valve had no stenosis or regurgitation. There was no mitral regurgitation or mitral stenosis. The tricuspid valve was not well visualized. TR jet directed jet insufficient to calculate right ventricle systolic pressure. Since her PTCA in 2014 she has not had any chest pains. Her EKG x2 this admission is normal. She will most likely benefit from a outpatient sleep study for obstructive sleep apnea. She is in the past has had some sort of cervical spinal stenosis. At present does not appear to be symptomatic from it. Her Covid19 test has been negative. The patient continues to have dyspnea on minimal exertion. Past Medical History Cardiac Medical History: Reports: Congestive Heart Failure, DVT, has CAD and history of PTCA of the left circumflex obtuse marginal branch, but no Myocardial Infarction, she has hypertension Pulmonary Medical History: Reports: Sleep Apnea, but states that she has not had a documented sleep study. She has a history of asthma. Endocrine Medical History: Reports: Diabetes Mellitus Type 2 - Insulin-dependent GI Medical History: Reports: Gastroesophageal Reflux Disease Musculoskeltal Medical History: Reports: Arthritis Psychiatric Medical History: Denies: Depression Hematology: Denies: Anemia, Sickle Cell Disease Infectious Medical History: Denies: Clostridium Difficile, HIV, Methicillin-Resistant Staph Aureus, Vancomycin-Resistant Enterococci Past Surgical History Past Surgical History: Reports: Cardiac Catheterization - Patient describes balloon angioplasty., Tubal Ligation Social History Lives with: Family Smoking Status: Former Smoker Electronic Cigarette use?: No Frequency of Alcohol Use: Rare Hx Recreational Drug Use: No Hx Prescription Drug Abuse: No - Advance Directive Resuscitation Status: Full Code Family History Family History: Hypertension Parental Family History Reviewed: Yes Children Family History Reviewed: Yes Sibling(s) Family History Reviewed.: Yes Medication/Allergy Home Medications: Amlodipine Besylate [Norvasc 10 mg Tablet] 10 mg PO DAILY 04/10/20 Ascorbic Acid [Vitamin C 500 mg Tablet] 500 mg PO DAILY 04/10/20 Aspirin [Ecotrin 81 mg EC Tablet] 81 mg PO DAILY 04/10/20 Atorvastatin Calcium [Lipitor 40 mg Tablet] 40 mg PO QHS 04/10/20 Butalb/Acetaminophen/Caffeine [Wbwetx-Wkxhffau-Tpwi 50-325-40] 1 each PO Q4HP PRN 04/10/20 Cyanocobalamin (Vitamin B-12) [Vitamin B-12 1000 Mcg Tablet] 1,000 mcg PO DAILY 04/10/20 Exenatide [Byetta Inj 10 Mcg/0.04 ml 2.4 ml Pen.injctr] 10 mcg SUBCUT BIDACBS 04/10/20 Insulin Glargine,Hum.rec.anlog [Lantus Insulin 100 Unit/1 ml 10 ml] 100 unit SUBCUT Q12 04/10/20 Isosorbide Mononitrate [Imdur 30 mg Tablet.er] 30 mg PO DAILY 04/10/20 Metformin HCl [Metformin HCl ER] 1,000 mg PO BIDBS 04/10/20 Metoprolol Tartrate [Lopressor 25 mg Tablet] 25 mg PO Q12 04/10/20 Omeprazole 40 mg PO DAILY 04/10/20 Ondansetron HCl 8 mg PO DAILY 04/10/20 Allergies/Adverse Reactions: metformin [Metformin] Allergy (Verified 11/26/17 12:24) Diarrhea cillins Allergy (Uncoded 11/26/17 12:24) Vomiting RESUSCITATION STATUS: The patient is a full code. Her son is a surrogate healthcare decision maker. Current Medications Generic Name Dose Route Start Last Admin Trade Name Freq PRN Reason Stop Dose Admin Acetaminophen 650 mg 04/10/20 20:53 04/14/20 11:09 Acetaminophen 325 Mg Tablet PO 05/10/20 20:52 650 mg Q4HP PRN Administration PAIN Acetaminophen/Butalbital/Caffeine 1 tab 04/11/20 15:46 04/12/20 16:07 Butalb/Acetaminophen/Caffeine 1 Tab Each PO 05/11/20 15:45 1 tab Q4HP PRN Administration FOR HEADACHE Albuterol/Ipratropium 3 ml 04/10/20 19:10 04/10/20 21:34 Ipratropium/Albuterol 0.5-2.5 Mg/3 Ml Ampul NEB 05/10/20 19:09 3 ml RTQ4HP PRN Administration SHORTNESS OF BREATH Amlodipine Besylate 10 mg 04/12/20 10:00 04/15/20 09:17 Amlodipine Besylate 10 Mg Tablet PO 05/12/20 09:59 10 mg DAILY JOHN Administration Ascorbic Acid 500 mg 04/11/20 10:00 04/15/20 09:17 Ascorbic Acid 500 Mg Tablet PO 05/11/20 09:59 500 mg DAILY JOHN Administration Aspirin 81 mg 04/11/20 10:00 04/15/20 09:17 Aspirin 81 Mg Tablet, Ent Coated PO 05/11/20 09:59 81 mg DAILY JOHN Administration Atorvastatin Calcium 40 mg 04/11/20 22:00 04/15/20 22:14 Atorvastatin Calcium 40 Mg Tablet PO 05/11/20 21:59 40 mg QHS JOHN Administration Colchicine 0.6 mg 04/13/20 22:00 04/15/20 22:52 Colchicine 0.6 Mg Tablet PO 05/13/20 21:59 0.6 mg Q12 JOHN Administration Cyanocobalamin 1,000 mcg 04/11/20 10:00 04/15/20 09:17 Cyanocobalamin (Vitamin B-12) 1,000 Mcg Tablet PO 05/11/20 09:59 1,000 mcg DAILY JOHN Administration Dextrose 12.5 gm 04/10/20 19:09 Dextrose 50%-Water 25 Gm/50 Ml Disp.Syrin IV 05/10/20 19:08 PRN PRN FOR BG 50-69 IN ALERT PATIENT Protocol Dextrose 25 gm 04/10/20 19:09 Dextrose 50%-Water 25 Gm/50 Ml Disp.Syrin IV 05/10/20 19:08 PRN PRN PER PROTOCOL Protocol Diphenoxylate HCl/Atropine 2 tab 04/14/20 21:46 04/14/20 22:29 Diphenoxylate Hcl/Atrop Sulf 2.5-0.025 Mg Tablet PO 04/21/20 21:45 2 tab QIDP PRN Administration FOR DIARRHEA Enoxaparin Sodium 40 mg 04/11/20 10:00 04/15/20 09:16 Enoxaparin Sodium Inj 40 Mg/0.4 Ml Disp.Syrin SUBCUT 05/11/20 09:59 40 mg DAILY JOHN Administration Exenatide 10 mcg 04/11/20 16:00 04/15/20 17:40 Exenatide Inj 10 Mcg/0.04 Ml 2.4 Ml Pen.Injctr SUBCUT 05/11/20 15:59 10 unit BIDACBS JOHN Administration Glucagon 1 mg 04/10/20 19:09 Glucagon,Human Recomb 1 Mg Inj IM 05/10/20 19:08 PRN PRN Evaluate for BG < 70 Protocol Glucose 15 gm 04/10/20 19:09 Dextrose 40% Gel 15 Gm Tube PO 05/10/20 19:08 PRN PRN FOR BG 50-69 IN ALERT PATIENT Protocol Glucose 30 gm 04/10/20 19:09 Dextrose 40% Gel 15 Gm Tube PO 05/10/20 19:08 PRN PRN FOR BG < 50 IN ALERT PATIENT Protocol Azithromycin 500 mg/ Dextrose 250 mls @ 250 mls/hr 04/11/20 10:00 04/15/20 11:24 IV 04/18/20 09:59 Infused DAILY JOHN Infusion Ceftriaxone Sodium/Dextrose 1 gm in 50 mls @ 100 mls/hr 04/11/20 10:00 04/15/20 09:46 Rocephin Rtu 1 Gm/D5w 50 Ml Premix IV 04/18/20 09:59 Infused DAILY JOHN Infusion Insulin Glargine 50 unit 04/11/20 22:00 04/15/20 22:13 Insulin Glargine,Hum.Rec.Anlog 1,000 Unit/10 Ml Vial SUBCUT 05/11/20 21:59 50 unit Q12 JOHN Administration Insulin Human Lispro 0 - 12 unit 04/10/20 22:00 04/15/20 22:12 Insulin Lispro 100 Unit/Ml 3 Ml Vial SUBCUT 05/10/20 21:59 2 unit ACHS JOHN Administration Protocol Isosorbide Mononitrate 30 mg 04/12/20 10:00 04/15/20 09:18 Isosorbide Mononitrate 30 Mg Tab.Er.24h PO 05/12/20 09:59 30 mg DAILY JOHN Administration Levalbuterol HCl 1.25 mg 04/15/20 20:11 Levalbuterol Hcl Neb 1.25 Mg/3 Ml Ampul NEB 04/16/20 20:10 .PRE/POSTPFT PRN SHORTNESS OF BREATH Metformin HCl 500 mg 04/11/20 18:00 04/15/20 17:40 Metformin Hcl 500 Mg Tablet PO 05/11/20 17:59 500 mg Q6 JOHN Administration Metoprolol Tartrate 25 mg 04/11/20 22:00 04/15/20 22:13 Metoprolol Tartrate 25 Mg Tablet PO 05/11/20 21:59 25 mg Q12 JOHN Administration Nitroglycerin 1 each 04/15/20 23:19 04/15/20 23:28 Nitroglycerin 5 Mg (0.2 Mg/Hr) Patch.Td24 TD 05/15/20 23:18 1 each DAILYP PRN Administration CHEST PAIN Ondansetron HCl 8 mg 04/12/20 10:00 04/15/20 09:20 Ondansetron Hcl 8 Mg Tablet PO 05/12/20 09:59 8 mg DAILY JOHN Administration Ondansetron HCl 8 mg 04/14/20 14:25 04/15/20 19:59 Ondansetron 4 Mg Tab.Rapdis PO 05/14/20 14:24 8 mg Q4HP PRN Administration NAUSEA Oxycodone/Acetaminophen 1 tab 04/14/20 12:44 04/14/20 17:55 Oxycodone-Acetaminophen 5-325 Mg Tablet PO 04/21/20 12:43 1 tab Q4HP PRN Administration PAIN Pantoprazole Sodium 40 mg 04/11/20 06:00 04/15/20 05:32 Pantoprazole Sodium 40 Mg Tablet. PO 05/11/20 05:59 40 mg Q6AM JOHN Administration Discontinued Medications Generic Name Dose Route Start Last Admin Trade Name Frechasity PRN Reason Stop Dose Admin Albuterol/Ipratropium 3 ml 04/10/20 07:24 04/10/20 07:34 Ipratropium/Albuterol 0.5-2.5 Mg/3 Ml Ampul NEB 04/10/20 07:25 3 ml NOW ONE Administration Amlodipine Besylate 10 mg 04/11/20 22:00 Amlodipine Besylate 10 Mg Tablet PO 05/11/20 21:59 QHS JOHN Amlodipine Besylate 10 mg 04/10/20 21:00 04/10/20 21:19 Amlodipine Besylate 10 Mg Tablet PO 04/10/20 21:01 10 mg NOW ONE Administration Azithromycin 500 mg 04/10/20 09:52 04/10/20 10:24 Azithromycin Inj 500 Mg Vial IV 04/10/20 09:53 500 mg IVBAG (ED) ONE Administration Dexamethasone Sodium Phosphate 10 mg 04/10/20 07:23 04/10/20 07:33 Dexamethasone Sod Phos Inj 10 Mg/1 Ml Vial IV 04/10/20 07:24 10 mg NOW ONE Administration Ceftriaxone Sodium/Dextrose 1 gm in 50 mls @ 100 mls/hr 04/10/20 09:53 04/10/20 10:50 Rocephin Rtu 1 Gm/D5w 50 Ml Premix IV 04/10/20 10:22 Infused NOW ONE Infusion Insulin Glargine 100 unit 04/10/20 22:00 04/11/20 14:02 Insulin Glargine,Hum.Rec.Anlog 1,000 Unit/10 Ml Vial SUBCUT 05/10/20 21:59 Not Given Q12 JOHN Insulin Glargine Confirm 04/10/20 21:15 04/10/20 21:44 Insulin Glargine,Hum.Rec.Anlog 1,000 Unit/10 Ml Vial (Pyx) Administered 04/10/20 21:16 Not Given Dose 1 unit SUBCUT .STK-MED ONE Metformin HCl 250 mg 04/10/20 22:00 04/11/20 14:10 Metformin Hcl 500 Mg Tablet PO 05/10/20 21:59 250 mg QID JOHN Administration Methylprednisolone Sodium Succinate 40 mg 04/10/20 22:00 04/12/20 13:45 Methylprednisolone Inj 40 Mg/1 Ml Sdv IV 05/10/20 21:59 40 mg Q8 JOHN Administration Methylprednisolone Sodium Succinate 40 mg 04/12/20 22:00 04/13/20 09:11 Methylprednisolone Inj 40 Mg/1 Ml Sdv IV 05/12/20 21:59 40 mg Q12 JOHN Administration Naproxen 500 mg 04/11/20 15:41 Naproxen 250 Mg Tablet PO 05/11/20 15:40 BIDP PRN FOR PAIN Review of Systems Constitutional: PRESENT: fatigue, weakness. ABSENT: chills, fever(s), headache(s) Eyes: ABSENT: visual disturbances Ears: ABSENT: hearing changes Cardiovascular: PRESENT: dyspnea on exertion. ABSENT: chest pain, edema, orthropnea, palpitations Respiratory: PRESENT: cough, dyspnea, sputum. ABSENT: hemoptysis Gastrointestinal: PRESENT: heartburn, nausea. ABSENT: abdominal pain, constipation, diarrhea, hematemesis, hematochezia, vomiting Genitourinary: ABSENT: dysuria, hematuria Musculoskeletal: ABSENT: joint swelling Integumentary: ABSENT: rash, wounds Neurological: ABSENT: abnormal gait, abnormal speech, confusion, dizziness, focal weakness, syncope Psychiatric: ABSENT: anxiety, depression, homidical ideation, suicidal ideation Endocrine: ABSENT: cold intolerance, heat intolerance, menstrual abnormalities, polydipsia, polyuria Hematologic/Lymphatic: ABSENT: easy bleeding, easy bruising, lymphadenopathy Allergic/Immunologic: ABSENT: seasonal rhinorrhea Physical Exam the patient is morbidly obese in no acute distress. Selected Entries 04/15/20 11:54 Temperature 97.6 F Temperature Oral Source Pulse Rate 77 Respiratory 18 Rate Blood Pressure 114/63 Blood Pressure 80 Mean BP Location Left Arm BP Position Supine O2 Sat by Pulse 97 Oximetry Oxygen Flow 2.00 Rate Oxygen Delivery Nasal Cannula Method HEAD: Is atraumatic normocephalic. EYES: Nipples are equal round regular reactive to light accommodation. Extraocular movements are normal. There is no conjunctival pallor. There is no scleral icterus. EARS: Tympanic membranes are intact. External auditory canals are clear. NOSE: There is no deviated nasal septum. There is no inflammation nasal mucous membrane. MOUTH: Mucous memories of mouth are moist. Tongue is moist there is no ulcers. There is no bleeding from the gums. THROAT: There is no redness of the oropharynx. There is no exudates. SKIN: There is no skin rashes. There is no skin lesions. There is no petechia or ecchymosis. There is no elevation discoloration of the skin. NECK: Is supple. There is no JVD. Carotids are equal there is no bruit there is no lymphadenopathy. There is no goiter. There is no accessory muscle respiration use. Trachea central. LUNGS: There is diminished air entry prolonged expiration without any rhonchi rales or wheezing. HEART: S1-S2 is heard. There is no S3 gallop. There is no S4 gallop. There is systolic murmur in the left sternal border and the apex without radiation. There is no rub. ABDOMEN: Is obese. Probably no hepatosplenomegaly. Bowel sounds are well heard. EXTREMITIES femorals are deep. Femorals are diminished. Leg pulses well felt. There is no pedal edema. There is no DVT or cellulitis. There is no calf tenderness. 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 PSYCHIATRIC: The patient judgment insight are intact her affect is normal. The patient's EKG on admission and today are within normal limits. Labs- Entire Visit 04/10/20 04/10/20 04/10/20 04:30 04:30 04:30 WBC 6.0 RBC 4.03 Hgb 12.9 Hct 37.8 MCV 94 MCH 32.0 MCHC 34.1 RDW 14.4 H Plt Count 233 Lymph % (Auto) 28.8 [place] % (Auto) 9.1 Eos % (Auto) 1.5 Baso % (Auto) 0.8 Absolute Neuts (auto) 3.6 Absolute Lymphs (auto) 1.7 Absolute Monos (auto) 0.5 Absolute Eos (auto) 0.1 Absolute Basos (auto) 0.1 Seg Neutrophils % 59.8 ESR PT INR APTT D-Dimer Carbonic Acid HCO3/H2CO3 Ratio ABG pH ABG pCO2 ABG pO2 ABG HCO3 ABG Total CO2 ABG O2 Saturation ABG Base Excess FiO2 Sodium 139.0 Potassium 4.3 Chloride 101 Carbon Dioxide 31 H Anion Gap 7 BUN 13 Creatinine 0.54 Est GFR ( Amer) > 60 Est GFR (MDRD) Non-Af > 60 Glucose 256 H POC Glucose Calcium 8.6 Total Bilirubin 0.4 Direct Bilirubin 0.2 Neonat Total Bilirubin Not Reportable Neonat Direct Bilirubin Not Reportable Neonat Indirect Bili Not Reportable AST 35 ALT 36 H Alkaline Phosphatase 115 Troponin I C-Reactive Protein NT-Pro-B Natriuret Pep 62 Total Protein 7.1 Albumin 3.7 COVID-19 Source COVID-19 ([facility]) Influenza A (RT-PCR) Influenza B (RT-PCR) RSV (RT-PCR) SARS-CoV-2 Rap RNA(RT-PCR) 04/10/20 04/10/20 04/10/20 04:30 04:30 04:30 WBC RBC Hgb Hct MCV MCH MCHC RDW Plt Count Lymph % (Auto) [place] % (Auto) Eos % (Auto) Baso % (Auto) Absolute Neuts (auto) Absolute Lymphs (auto) Absolute Monos (auto) Absolute Eos (auto) Absolute Basos (auto) Seg Neutrophils % ESR PT 22.6 H INR 1.98 APTT 29.7 D-Dimer 0.45 Carbonic Acid HCO3/H2CO3 Ratio ABG pH ABG pCO2 ABG pO2 ABG HCO3 ABG Total CO2 ABG O2 Saturation ABG Base Excess FiO2 Sodium Potassium Chloride Carbon Dioxide Anion Gap BUN Creatinine Est GFR ( Amer) Est GFR (MDRD) Non-Af Glucose POC Glucose Calcium Total Bilirubin Direct Bilirubin Neonat Total Bilirubin Neonat Direct Bilirubin Neonat Indirect Bili AST ALT Alkaline Phosphatase Troponin I < 0.012 C-Reactive Protein NT-Pro-B Natriuret Pep Total Protein Albumin COVID-19 Source COVID-19 ([facility]) Influenza A (RT-PCR) Influenza B (RT-PCR) RSV (RT-PCR) SARS-CoV-2 Rap RNA(RT-PCR) 04/10/20 04/10/20 04/10/20 08:00 08:00 08:00 WBC RBC Hgb Hct MCV MCH MCHC RDW Plt Count Lymph % (Auto) [place] % (Auto) Eos % (Auto) Baso % (Auto) Absolute Neuts (auto) Absolute Lymphs (auto) Absolute Monos (auto) Absolute Eos (auto) Absolute Basos (auto) Seg Neutrophils % ESR PT INR APTT D-Dimer Carbonic Acid 1.24 HCO3/H2CO3 Ratio 20:1 ABG pH 7.41 ABG pCO2 41.1 ABG pO2 44.7 L ABG HCO3 25.5 H ABG Total CO2 26.7 H ABG O2 Saturation 81.1 L ABG Base Excess 0.8 FiO2 ROOM AIR Sodium Potassium Chloride Carbon Dioxide Anion Gap BUN Creatinine Est GFR ( Amer) Est GFR (MDRD) Non-Af Glucose POC Glucose Calcium Total Bilirubin Direct Bilirubin Neonat Total Bilirubin Neonat Direct Bilirubin Neonat Indirect Bili AST ALT Alkaline Phosphatase Troponin I C-Reactive Protein NT-Pro-B Natriuret Pep Total Protein Albumin COVID-19 Source Cancelled COVID-19 ([facility]) Cancelled Influenza A (RT-PCR) NEGATIVE Influenza B (RT-PCR) NEGATIVE RSV (RT-PCR) NEGATIVE SARS-CoV-2 Rap RNA(RT-PCR) NEGATIVE 04/10/20 04/11/20 04/11/20 20:51 07:53 11:29 WBC RBC Hgb Hct MCV MCH MCHC RDW Plt Count Lymph % (Auto) [place] % (Auto) Eos % (Auto) Baso % (Auto) Absolute Neuts (auto) Absolute Lymphs (auto) Absolute Monos (auto) Absolute Eos (auto) Absolute Basos (auto) Seg Neutrophils % ESR PT INR APTT D-Dimer Carbonic Acid HCO3/H2CO3 Ratio ABG pH ABG pCO2 ABG pO2 ABG HCO3 ABG Total CO2 ABG O2 Saturation ABG Base Excess FiO2 Sodium Potassium Chloride Carbon Dioxide Anion Gap BUN Creatinine Est GFR ( Amer) Est GFR (MDRD) Non-Af Glucose POC Glucose 181 H 276 H 300 H Calcium Total Bilirubin Direct Bilirubin Neonat Total Bilirubin Neonat Direct Bilirubin Neonat Indirect Bili AST ALT Alkaline Phosphatase Troponin I C-Reactive Protein NT-Pro-B Natriuret Pep Total Protein Albumin COVID-19 Source COVID-19 ([facility]) Influenza A (RT-PCR) Influenza B (RT-PCR) RSV (RT-PCR) SARS-CoV-2 Rap RNA(RT-PCR) 04/11/20 04/11/20 04/12/20 15:19 21:00 08:25 WBC RBC Hgb Hct MCV MCH MCHC RDW Plt Count Lymph % (Auto) [place] % (Auto) Eos % (Auto) Baso % (Auto) Absolute Neuts (auto) Absolute Lymphs (auto) Absolute Monos (auto) Absolute Eos (auto) Absolute Basos (auto) Seg Neutrophils % ESR PT INR APTT D-Dimer Carbonic Acid HCO3/H2CO3 Ratio ABG pH ABG pCO2 ABG pO2 ABG HCO3 ABG Total CO2 ABG O2 Saturation ABG Base Excess FiO2 Sodium Potassium Chloride Carbon Dioxide Anion Gap BUN Creatinine Est GFR ( Amer) Est GFR (MDRD) Non-Af Glucose POC Glucose 336 H 309 H 281 H Calcium Total Bilirubin Direct Bilirubin Neonat Total Bilirubin Neonat Direct Bilirubin Neonat Indirect Bili AST ALT Alkaline Phosphatase Troponin I C-Reactive Protein NT-Pro-B Natriuret Pep Total Protein Albumin COVID-19 Source COVID-19 ([facility]) Influenza A (RT-PCR) Influenza B (RT-PCR) RSV (RT-PCR) SARS-CoV-2 Rap RNA(RT-PCR) 04/12/20 04/12/20 04/12/20 12:19 15:47 16:28 WBC RBC Hgb Hct MCV MCH MCHC RDW Plt Count Lymph % (Auto) [place] % (Auto) Eos % (Auto) Baso % (Auto) Absolute Neuts (auto) Absolute Lymphs (auto) Absolute Monos (auto) Absolute Eos (auto) Absolute Basos (auto) Seg Neutrophils % ESR 53 H PT INR APTT D-Dimer Carbonic Acid HCO3/H2CO3 Ratio ABG pH ABG pCO2 ABG pO2 ABG HCO3 ABG Total CO2 ABG O2 Saturation ABG Base Excess FiO2 Sodium Potassium Chloride Carbon Dioxide Anion Gap BUN Creatinine Est GFR ( Amer) Est GFR (MDRD) Non-Af Glucose POC Glucose 366 H 305 H Calcium Total Bilirubin Direct Bilirubin Neonat Total Bilirubin Neonat Direct Bilirubin Neonat Indirect Bili AST ALT Alkaline Phosphatase Troponin I C-Reactive Protein NT-Pro-B Natriuret Pep Total Protein Albumin COVID-19 Source COVID-19 ([facility]) Influenza A (RT-PCR) Influenza B (RT-PCR) RSV (RT-PCR) SARS-CoV-2 Rap RNA(RT-PCR) 04/12/20 04/12/20 04/13/20 16:28 20:41 05:30 WBC 7.5 RBC 3.95 Hgb 12.7 Hct 37.4 MCV 95 MCH 32.1 MCHC 33.9 RDW 14.0 Plt Count 249 Lymph % (Auto) 20.4 [place] % (Auto) 6.2 Eos % (Auto) 0.0 Baso % (Auto) 0.4 Absolute Neuts (auto) 5.5 Absolute Lymphs (auto) 1.5 Absolute Monos (auto) 0.5 Absolute Eos (auto) 0.0 Absolute Basos (auto) 0.0 Seg Neutrophils % 73.0 ESR PT INR APTT D-Dimer Carbonic Acid HCO3/H2CO3 Ratio ABG pH ABG pCO2 ABG pO2 ABG HCO3 ABG Total CO2 ABG O2 Saturation ABG Base Excess FiO2 Sodium Potassium Chloride Carbon Dioxide Anion Gap BUN Creatinine Est GFR ( Amer) Est GFR (MDRD) Non-Af Glucose POC Glucose 296 H Calcium Total Bilirubin Direct Bilirubin Neonat Total Bilirubin Neonat Direct Bilirubin Neonat Indirect Bili AST ALT Alkaline Phosphatase Troponin I C-Reactive Protein < 5.0 NT-Pro-B Natriuret Pep Total Protein Albumin COVID-19 Source COVID-19 ([facility]) Influenza A (RT-PCR) Influenza B (RT-PCR) RSV (RT-PCR) SARS-CoV-2 Rap RNA(RT-PCR) 04/13/20 04/13/20 04/13/20 05:30 07:40 11:21 WBC RBC Hgb Hct MCV MCH MCHC RDW Plt Count Lymph % (Auto) [place] % (Auto) Eos % (Auto) Baso % (Auto) Absolute Neuts (auto) Absolute Lymphs (auto) Absolute Monos (auto) Absolute Eos (auto) Absolute Basos (auto) Seg Neutrophils % ESR PT INR APTT D-Dimer Carbonic Acid HCO3/H2CO3 Ratio ABG pH ABG pCO2 ABG pO2 ABG HCO3 ABG Total CO2 ABG O2 Saturation ABG Base Excess FiO2 Sodium 137.0 Potassium 4.5 Chloride 99 Carbon Dioxide 31 H Anion Gap 7 BUN 13 Creatinine 0.55 Est GFR ( Amer) > 60 Est GFR (MDRD) Non-Af > 60 Glucose 299 H POC Glucose 240 H 252 H Calcium 9.3 Total Bilirubin 0.4 Direct Bilirubin 0.1 Neonat Total Bilirubin Not Reportable Neonat Direct Bilirubin Not Reportable Neonat Indirect Bili Not Reportable AST 23 ALT 30 Alkaline Phosphatase 94 Troponin I C-Reactive Protein NT-Pro-B Natriuret Pep Total Protein 7.2 Albumin 3.7 COVID-19 Source COVID-19 ([facility]) Influenza A (RT-PCR) Influenza B (RT-PCR) RSV (RT-PCR) SARS-CoV-2 Rap RNA(RT-PCR) 04/13/20 04/13/20 04/14/20 16:29 21:47 08:59 WBC RBC Hgb Hct MCV MCH MCHC RDW Plt Count Lymph % (Auto) [place] % (Auto) Eos % (Auto) Baso % (Auto) Absolute Neuts (auto) Absolute Lymphs (auto) Absolute Monos (auto) Absolute Eos (auto) Absolute Basos (auto) Seg Neutrophils % ESR PT INR APTT D-Dimer Carbonic Acid HCO3/H2CO3 Ratio ABG pH ABG pCO2 ABG pO2 ABG HCO3 ABG Total CO2 ABG O2 Saturation ABG Base Excess FiO2 Sodium Potassium Chloride Carbon Dioxide Anion Gap BUN Creatinine Est GFR ( Amer) Est GFR (MDRD) Non-Af Glucose POC Glucose 294 H 300 H 112 H Calcium Total Bilirubin Direct Bilirubin Neonat Total Bilirubin Neonat Direct Bilirubin Neonat Indirect Bili AST ALT Alkaline Phosphatase Troponin I C-Reactive Protein NT-Pro-B Natriuret Pep Total Protein Albumin COVID-19 Source COVID-19 ([facility]) Influenza A (RT-PCR) Influenza B (RT-PCR) RSV (RT-PCR) SARS-CoV-2 Rap RNA(RT-PCR) 04/14/20 04/14/20 04/14/20 12:33 17:48 21:15 WBC RBC Hgb Hct MCV MCH MCHC RDW Plt Count Lymph % (Auto) [place] % (Auto) Eos % (Auto) Baso % (Auto) Absolute Neuts (auto) Absolute Lymphs (auto) Absolute Monos (auto) Absolute Eos (auto) Absolute Basos (auto) Seg Neutrophils % ESR PT INR APTT D-Dimer Carbonic Acid HCO3/H2CO3 Ratio ABG pH ABG pCO2 ABG pO2 ABG HCO3 ABG Total CO2 ABG O2 Saturation ABG Base Excess FiO2 Sodium Potassium Chloride Carbon Dioxide Anion Gap BUN Creatinine Est GFR ( Amer) Est GFR (MDRD) Non-Af Glucose POC Glucose 188 H 293 H 181 H Calcium Total Bilirubin Direct Bilirubin Neonat Total Bilirubin Neonat Direct Bilirubin Neonat Indirect Bili AST ALT Alkaline Phosphatase Troponin I C-Reactive Protein NT-Pro-B Natriuret Pep Total Protein Albumin COVID-19 Source COVID-19 ([facility]) Influenza A (RT-PCR) Influenza B (RT-PCR) RSV (RT-PCR) SARS-CoV-2 Rap RNA(RT-PCR) 04/15/20 04/15/20 04/15/20 07:54 11:54 16:59 WBC RBC Hgb Hct MCV MCH MCHC RDW Plt Count Lymph % (Auto) [place] % (Auto) Eos % (Auto) Baso % (Auto) Absolute Neuts (auto) Absolute Lymphs (auto) Absolute Monos (auto) Absolute Eos (auto) Absolute Basos (auto) Seg Neutrophils % ESR PT INR APTT D-Dimer Carbonic Acid HCO3/H2CO3 Ratio ABG pH ABG pCO2 ABG pO2 ABG HCO3 ABG Total CO2 ABG O2 Saturation ABG Base Excess FiO2 Sodium Potassium Chloride Carbon Dioxide Anion Gap BUN Creatinine Est GFR ( Amer) Est GFR (MDRD) Non-Af Glucose POC Glucose 172 H 152 H 163 H Calcium Total Bilirubin Direct Bilirubin Neonat Total Bilirubin Neonat Direct Bilirubin Neonat Indirect Bili AST ALT Alkaline Phosphatase Troponin I C-Reactive Protein NT-Pro-B Natriuret Pep Total Protein Albumin COVID-19 Source COVID-19 ([facility]) Influenza A (RT-PCR) Influenza B (RT-PCR) RSV (RT-PCR) SARS-CoV-2 Rap RNA(RT-PCR) 04/15/20 21:21 WBC RBC Hgb Hct MCV MCH MCHC RDW Plt Count Lymph % (Auto) [place] % (Auto) Eos % (Auto) Baso % (Auto) Absolute Neuts (auto) Absolute Lymphs (auto) Absolute Monos (auto) Absolute Eos (auto) Absolute Basos (auto) Seg Neutrophils % ESR PT INR APTT D-Dimer Carbonic Acid HCO3/H2CO3 Ratio ABG pH ABG pCO2 ABG pO2 ABG HCO3 ABG Total CO2 ABG O2 Saturation ABG Base Excess FiO2 Sodium Potassium Chloride Carbon Dioxide Anion Gap BUN Creatinine Est GFR ( Amer) Est GFR (MDRD) Non-Af Glucose POC Glucose 162 H Calcium Total Bilirubin Direct Bilirubin Neonat Total Bilirubin Neonat Direct Bilirubin Neonat Indirect Bili AST ALT Alkaline Phosphatase Troponin I C-Reactive Protein NT-Pro-B Natriuret Pep Total Protein Albumin COVID-19 Source COVID-19 ([facility]) Influenza A (RT-PCR) Influenza B (RT-PCR) RSV (RT-PCR) SARS-CoV-2 Rap RNA(RT-PCR) Chest X-Ray 04/10/20 03:50 IMPRESSION: No significant change. Chest/Abdomen CTA 04/10/20 07:23 IMPRESSION: 1. No central or segmental pulmonary embolus. 2. Imaging not optimized for evaluation of the lung; however, there does appear to be a rounded airspace opacity of the left lower lobe with similar findings of the lingula and right lower lobe. Findings may represent a developing multi lobar pneumonia. Chest X-Ray 04/13/20 00:00 IMPRESSION: Clear lungs. IMPRESSION/RECOMMENDATION: 1. Dyspnea on exertion: This is multifactorial since due to the patient's morbid obesity, possible sleep apnea and acute asthmatic attack and LV diastolic dysfunction due to abnormal relaxation of the left ventricle. The patient will benefit from a sleep study and CPAP therapy if indicated. 2. Acute asthmatic bronchitis: Symptoms resolved. 3. Hypertension: Blood pressure well controlled 4. Diabetes mellitus: Continue insulin and antidiabetic regimen and Accu-Chek as per protocol. 5. Coronary artery disease. History of PTCA of the obtuse marginal branch of the left circumflex artery. No evidence of acute coronary syndrome, and no anginal symptoms. 6. GERD: Continue proton pump inhibitors. 7. Most likely has obstructive sleep apnea ,With probably combined central sleep apnea. 8. History of asthma: Continue periodic inhalers. 9. Morbid obesity would recommend diet and exercise to lose weight. Medications reviewed. Would recommend increasing the patient's nitrates. Medical regimen and management plan discussed with attending provider on the case. Medical decision making is of high complexity. 60 minutes spent in the patient with more than 50% of time spent in direct patient care. Discussed with Dr. Calvin. We will sign off and follow the patient in the office.
[2020-04-15] MEDS ORDERED: LEVALBUTEROL HCL NEB 1.25 MG/3 ML AMPUL NEB PRN (20:11)
--- NOTE | 2020-04-15 20:11 | PDOC PROGRESS REPORT ---
Subjective Date:: 04/15/20 Subjective:: Patient is alert still short of breath, no discernible wheeze on chest ausculta tion Reason For Visit: LEFT LOWER LOBE PNEMONIA; DM TYPE 2; HTN; CAD; VANESA Physical Exam Vital Signs: Temp Pulse Resp BP Pulse Ox 98.0 F 94 18 121/73 92 04/15/20 16:59 04/15/20 16:59 04/15/20 16:59 04/15/20 16:59 04/15/20 16:59 Intake & Output 04/14/20 04/15/20 04/16/20 06:59 06:59 06:59 Intake Total 660 760 600 Balance 660 760 600 Weight 155.7 kg 157.6 kg General appearance: PRESENT: no acute distress, morbidly obese Eye exam: PRESENT: PERRLA Respiratory exam: PRESENT: clear to auscultation dexter Cardiovascular exam: PRESENT: +S1, +S2 GI/Abdominal exam: PRESENT: soft Neurological exam: PRESENT: alert Results Laboratory Results: 04/13/20 05:30 04/13/20 05:30 04/10/20 10:07 Blood Blood Culture - Final NO GROWTH IN 5 DAYS 04/10/20 04/10/20 04:30 04:30 Troponin I < 0.012 NT-Pro-B Natriuret Pep 62 Impressions: Chest/Abdomen CTA 04/10/20 07:23 IMPRESSION: 1. No central or segmental pulmonary embolus. 2. Imaging not optimized for evaluation of the lung; however, there does appear to be a rounded airspace opacity of the left lower lobe with similar findings of the lingula and right lower lobe. Findings may represent a developing multi lobar pneumonia. Chest X-Ray 04/13/20 00:00 IMPRESSION: Clear lungs. Assessment & Plan - Diagnosis (1) Acute hypoxemic respiratory failure Is this a current diagnosis for this admission?: Yes Plan: Continue supplemental oxygen (2) Bilateral pneumonia Qualifiers: Pneumonia type: due to unspecified organism Lung location: unspecified part of lung Qualified Code(s): J18.9 - Pneumonia, unspecified organism Is this a current diagnosis for this admission?: Yes Plan: Chest x-ray is clear but patient is symptomatic with shortness of breath, (3) Morbid (severe) obesity due to excess calories Is this a current diagnosis for this admission?: Yes (4) Type 2 diabetes mellitus with diabetic polyneuropathy Qualifiers: Diabetes mellitus intermodal dispatcher insulin use: without intermodal dispatcher use Qualified Code(s): E11.42 - Type 2 diabetes mellitus with diabetic polyneuropathy Is this a current diagnosis for this admission?: Yes (5) Acute gouty arthropathy Is this a current diagnosis for this admission?: Yes (6) SOB (shortness of breath) Is this a current diagnosis for this admission?: Yes Plan: Get a full PFT in the morning - Time Time Spent with patient: 25-34 minutes Level of Care: IMCU Medications reviewed and adjusted accordingly: Yes Anticipated discharge: Home Anticipated DC Timeframe: within 36 hours
[2020-04-15] MEDS: ATORVASTATIN CALCIUM 40 MG TABLET PO SCH (22:14)
[2020-04-15] MEDS ORDERED: NITROGLYCERIN 5 MG (0.2 MG/HR) PATCH.TD24 TD PRN (23:19)
[2020-04-16] MEDS: METFORMIN HCL 500 MG TABLET PO SCH ×3 (00:21→12:29)
[2020-04-16] MEDS: PANTOPRAZOLE SODIUM 40 MG TABLET.DR PO SCH (06:11)
[2020-04-16] MEDS: ONDANSETRON 4 MG TAB.RAPDIS PO PRN (08:40)
[2020-04-16] MEDS: EXENATIDE INJ 10 MCG/0.04 ML 2.4 ML PEN.INJCTR SUBCUT SCH (08:41)
[2020-04-16] MEDS: DIPHENOXYLATE HCL/ATROP SULF 2.5-0.025 MG TABLET PO PRN (08:41)
[2020-04-16] MEDS: INSULIN LISPRO 100 UNIT/ML 3 ML VIAL SUBCUT SCH ×2 (08:50→12:38)
--- NOTE | 2020-04-16 11:53 | EKG REPORT ---
SEVERITY:- NORMAL ECG - SINUS RHYTHM : Confirmed by: Sarabjit Carey MD 16-Apr-2020 11:52:41
--- NOTE | 2020-04-16 12:00 | PDOC DISCHARGE SUMMARY ---
Impression - Admit/DC Date/PCP Admission Date/Primary Care Provider: 04/10/20 10:29 MART BELTRAN MD Discharge Date: 04/16/20 - Discharge Diagnosis (1) Acute hypoxemic respiratory failure Is this a current diagnosis for this admission?: Yes (2) Bilateral pneumonia Is this a current diagnosis for this admission?: Yes (3) Morbid (severe) obesity due to excess calories Is this a current diagnosis for this admission?: Yes (4) Type 2 diabetes mellitus with diabetic polyneuropathy Is this a current diagnosis for this admission?: Yes (5) Acute gouty arthropathy Is this a current diagnosis for this admission?: Yes (6) SOB (shortness of breath) Is this a current diagnosis for this admission?: Yes (7) Moderate persistent asthma Is this a current diagnosis for this admission?: Yes - Additional Information Resuscitation Status: Full Code Referrals: MART BELTRAN MD [Primary Care Provider] - 04/16/20 1:14 pm (04/16/20 1314 called and left a message. providers office will contact pt with follow up.) Prescriptions: Dapagliflozin Propanediol [Farxiga] 10 mg PO DAILY #90 tablet Nitroglycerin [Nitro-Dur 5 mg (0.2 mg/Hr) Transdermal Patch] 1 each TD DAILYP PRN #30 patch.td24 PRN Reason: Albuterol Sulfate [Proair Hfa Inhalation Aerosol 8.5 gm Mdi] 1 puff IH Q4 PRN #1 mdi PRN Reason: Budesonide/Formoterol Fumarate [Symbicort Hfa 160-4.5 Mcg Inhaler 6 gm] 2 puff IH Q12 #1 inhaler Home Medications: Amlodipine Besylate [Norvasc 10 mg Tablet] 10 mg PO DAILY 04/10/20 Ascorbic Acid [Vitamin C 500 mg Tablet] 500 mg PO DAILY 04/10/20 Aspirin [Ecotrin 81 mg EC Tablet] 81 mg PO DAILY 04/10/20 Atorvastatin Calcium [Lipitor 40 mg Tablet] 40 mg PO QHS 04/10/20 Butalb/Acetaminophen/Caffeine [Itbrdh-Gngygwas-Okpr 50-325-40] 1 each PO Q4HP PRN 04/10/20 Cyanocobalamin (Vitamin B-12) [Vitamin B-12 1000 mcg Tablet] 1,000 mcg PO DAILY 04/10/20 Exenatide [Byetta Inj 10 Mcg/0.04 ml 2.4 ml Pen.injctr] 10 mcg SUBCUT BIDACBS 04/10/20 Insulin Glargine,Hum.rec.anlog [Lantus Insulin 100 Unit/1 ml 10 ml] 50 unit SUBCUT Q12 04/10/20 Isosorbide Mononitrate [Imdur 30 mg Tablet.er] 30 mg PO DAILY 04/10/20 Metformin HCl [Metformin HCl ER] 1,000 mg PO BIDBS 04/10/20 Metoprolol Tartrate [Lopressor 25 mg Tablet] 25 mg PO Q12 04/10/20 Ondansetron HCl 8 mg PO DAILY 04/10/20 Omeprazole 20 mg PO QAM 04/11/20 Albuterol Sulfate [Proair Hfa Inhalation Aerosol 8.5 gm Mdi] 1 puff IH Q4 PRN #1 mdi 04/16/20 Budesonide/Formoterol Fumarate [Symbicort Hfa 160-4.5 Mcg Inhaler 6 gm] 2 puff IH Q12 #1 inhaler 04/16/20 Dapagliflozin Propanediol [Farxiga] 10 mg PO DAILY #90 tablet 04/16/20 Nitroglycerin [Nitro-Dur 5 mg (0.2 mg/Hr) Transdermal Patch] 1 each TD DAILYP PRN #30 patch.td24 04/16/20 History of Present Illiness History of Present Illness: JULIEN GAMBOA is a 54 year old female who presented to the ED with complain of progressively worsening shortness of breath on exertion with associated productive cough. She reported sputum as thick, yellowish with pink tinge in color. She reported associated night sweats that has been ongoing for about 1 month. She denied any associated chest pain or exposure to anybody recent diagnosed with fuller virus infection or travel outside her usual are of abode. Her initial ED evaluation was significant for chest CT revealing bilateral regions of airspace disease process. Her COVID-19 test was reported negative. She was advised hospitalization for further evaluation and management. Her morbidities are as listed below. Hospital Course Hospital Course: Patient presented with acute hypoxemic respiratory failure CT angiogram of the chest was obtained negative for pulmonary embolus there was groundglass opacities, patient was treated with IV antibiotic initially and also IV Solu- Medrol, she has a history of underlining moderate persistent asthma. She improved on this regimen there was a concern that there could be a cardiac component because of her risk factors for ischemic heart disease, history of CAD, diabetes inactivity morbid obesity. She was seen in consultation by Dr. Collier cardiology. He felt most of her symptoms is most likely related to of the asthma, She will follow with Dr. Collier outpatient for further cardiac evaluation Physical Exam Vital Signs: Temp Pulse Resp BP Pulse Ox 98.0 F 89 19 107/51 L 100 04/16/20 07:55 04/16/20 07:55 04/16/20 07:55 04/16/20 07:55 04/16/20 07:55 Intake & Output 04/15/20 04/16/20 04/17/20 06:59 06:59 06:59 Intake Total 760 600 Balance 760 600 Weight 157.6 kg 155 kg General appearance: PRESENT: no acute distress Eye exam: PRESENT: PERRLA Respiratory exam: PRESENT: clear to auscultation dexter Cardiovascular exam: PRESENT: +S1, +S2 GI/Abdominal exam: PRESENT: soft Neurological exam: PRESENT: alert Results Laboratory Results: WBC 7.5 10^3/uL (4.0-10.5) 04/13/20 05:30 RBC 3.95 10^6/uL (3.72-5.28) 04/13/20 05:30 Hgb 12.7 g/dL (12.0-15.5) 04/13/20 05:30 Hct 37.4 % (36.0-47.0) 04/13/20 05:30 MCV 95 fl (80-97) 04/13/20 05:30 MCH 32.1 pg (27.0-33.4) 04/13/20 05:30 MCHC 33.9 g/dL (32.0-36.0) 04/13/20 05:30 RDW 14.0 % (11.5-14.0) 04/13/20 05:30 Plt Count 249 10^3/uL (150-450) 04/13/20 05:30 Lymph % (Auto) 20.4 % (13-45) 04/13/20 05:30 [place] % (Auto) 6.2 % (3-13) 04/13/20 05:30 Eos % (Auto) 0.0 % (0-6) 04/13/20 05:30 Baso % (Auto) 0.4 % (0-2) 04/13/20 05:30 Absolute Neuts (auto) 5.5 10^3/uL (1.7-8.2) 04/13/20 05:30 Absolute Lymphs (auto) 1.5 10^3/uL (0.5-4.7) 04/13/20 05:30 Absolute Monos (auto) 0.5 10^3/uL (0.1-1.4) 04/13/20 05:30 Absolute Eos (auto) 0.0 10^3/uL (0.0-0.6) 04/13/20 05:30 Absolute Basos (auto) 0.0 10^3/uL (0.0-0.2) 04/13/20 05:30 Seg Neutrophils % 73.0 % (42-78) 04/13/20 05:30 ESR 53 mm/hr (0-30) H 04/12/20 16:28 PT 22.6 SEC (11.4-15.4) H 04/10/20 04:30 INR 1.98 04/10/20 04:30 APTT 29.7 SEC (23.5-35.8) 04/10/20 04:30 D-Dimer 0.45 ug/mL (0.00-0.50) 04/10/20 04:30 Carbonic Acid 1.24 mmol/L (1.05-1.35) 04/10/20 08:00 HCO3/H2CO3 Ratio 20:1 04/10/20 08:00 ABG pH 7.41 (7.35-7.45) 04/10/20 08:00 ABG pCO2 41.1 mmHg (35-45) 04/10/20 08:00 ABG pO2 44.7 mmHg (80-100) L 04/10/20 08:00 ABG HCO3 25.5 mmol/L (20-24) H 04/10/20 08:00 ABG Total CO2 26.7 mmol/L (21-25) H 04/10/20 08:00 ABG O2 Saturation 81.1 % (94-98) L 04/10/20 08:00 ABG Base Excess 0.8 mmol/L 04/10/20 08:00 FiO2 ROOM AIR 04/10/20 08:00 Sodium 137.0 mmol/L (137-145) 04/13/20 05:30 Potassium 4.5 mmol/L (3.6-5.0) 04/13/20 05:30 Chloride 99 mmol/L (98-107) 04/13/20 05:30 Carbon Dioxide 31 mmol/L (22-30) H 04/13/20 05:30 Anion Gap 7 (5-19) 04/13/20 05:30 BUN 13 mg/dL (7-20) 04/13/20 05:30 Creatinine 0.55 mg/dL (0.52-1.25) 04/13/20 05:30 Est GFR ( Amer) > 60 (>60) 04/13/20 05:30 Est GFR (MDRD) Non-Af > 60 (>60) 04/13/20 05:30 Glucose 299 mg/dL (75-110) H 04/13/20 05:30 POC Glucose 184 mg/dL (70-110) H 04/16/20 11:10 Calcium 9.3 mg/dL (8.4-10.2) 04/13/20 05:30 Total Bilirubin 0.4 mg/dL (0.2-1.3) 04/13/20 05:30 Direct Bilirubin 0.1 mg/dL (0.0-0.4) 04/13/20 05:30 Neonat Total Bilirubin Not Reportable 04/13/20 05:30 Neonat Direct Bilirubin Not Reportable 04/13/20 05:30 Neonat Indirect Bili Not Reportable 04/13/20 05:30 AST 23 U/L (14-36) 04/13/20 05:30 ALT 30 U/L (<35) 04/13/20 05:30 Alkaline Phosphatase 94 U/L (38-126) 04/13/20 05:30 Troponin I < 0.012 ng/mL 04/10/20 04:30 C-Reactive Protein < 5.0 mg/L (<10.0) 04/12/20 16:28 NT-Pro-B Natriuret Pep 62 pg/mL (<125) 04/10/20 04:30 Total Protein 7.2 g/dL (6.3-8.2) 04/13/20 05:30 Albumin 3.7 g/dL (3.5-5.0) 04/13/20 05:30 COVID-19 Source Cancelled 04/10/20 08:00 COVID-19 ([facility]) Cancelled 04/10/20 08:00 Influenza A (RT-PCR) NEGATIVE (NEGATIVE) 04/10/20 08:00 Influenza B (RT-PCR) NEGATIVE (NEGATIVE) 04/10/20 08:00 RSV (RT-PCR) NEGATIVE (NEGATIVE) 04/10/20 08:00 SARS-CoV-2 Rap RNA(RT-PCR) NEGATIVE (NEGATIVE) 04/10/20 08:00 04/10/20 04/10/20 04:30 04:30 Troponin I < 0.012 NT-Pro-B Natriuret Pep 62 Impressions: Chest X-Ray 04/10/20 03:50 IMPRESSION: No significant change. Chest/Abdomen CTA 04/10/20 07:23 IMPRESSION: 1. No central or segmental pulmonary embolus. 2. Imaging not optimized for evaluation of the lung; however, there does appear to be a rounded airspace opacity of the left lower lobe with similar findings of the lingula and right lower lobe. Findings may represent a developing multi lobar pneumonia. Chest X-Ray 04/13/20 00:00 IMPRESSION: Clear lungs. Stroke Is this a Stroke Patient?: No Acute Heart Failure Is this a Heart Failure Patient?: No
[2020-04-16] MEDS: ASPIRIN 81 MG TABLET, ENT COATED PO SCH (12:29)
[2020-04-16] MEDS: ISOSORBIDE MONONITRATE 30 MG TAB.ER.24H PO SCH (12:30)
[2020-04-16] MEDS: ASCORBIC ACID 500 MG TABLET PO SCH (12:30)
[2020-04-16] MEDS: CYANOCOBALAMIN (VITAMIN B-12) 1,000 MCG TABLET PO SCH (12:31)
[2020-04-16] MEDS: ONDANSETRON HCL 8 MG TABLET PO SCH (12:32)
[2020-04-16] MEDS: COLCHICINE 0.6 MG TABLET PO SCH (12:33)
[2020-04-16] MEDS: AMLODIPINE BESYLATE 10 MG TABLET PO SCH (12:36)
[2020-04-16] MEDS: METOPROLOL TARTRATE 25 MG TABLET PO SCH (12:36)
[2020-04-16] MEDS: ENOXAPARIN SODIUM INJ 40 MG/0.4 ML DISP.SYRIN SUBCUT SCH (12:37)
[2020-04-16] MEDS: INSULIN GLARGINE,HUM.REC.ANLOG 1,000 UNIT/10 ML VIAL SUBCUT SCH (12:38)
[2020-04-16] MEDS: CEFTRIAXONE 1 GM/D5W RTU 1 GM/50 ML RTUPB IV SCH (12:39)
[2020-04-16 13:50] VITALS: BP 142/81
[2020-04-16] MEDS: AZITHROMYCIN 500 MG in DEXTROSE 5%-WATER 250 ML IV SCH (14:31)
[2020-04-16] MEDS ORDERED: INFLUENZA QUAD (6MOS+) 2020-21 VAC 0.5 ML SYR IM ONE (16:30)
[2020-04-17] MEDS ORDERED: INFLUENZA QUAD (6MOS+) 2020-21 VAC 0.5 ML SYR IM ONE (08:00)
== END 2020-04-16 16:51 | disposition home or self-care (01) | DRG 193 ==
LOC: ER 03:25 → EH 10:29 → 3S 15:13 → 5 04-15 19:25
PROVIDERS: ADMIT Internal Medicine; ATTEND Internal Medicine
DX: J18.9 Pneumonia, unspecified organism (principal); J96.01 Acute respiratory failure with hypoxia; Z68.44 Body mass index [BMI] 60.0-69.9, adult; E66.01 Morbid (severe) obesity due to excess calories; E11.42 Type 2 diabetes mellitus with diabetic polyneuropathy; M10.9 Gout, unspecified; J45.40 Moderate persistent asthma, uncomplicated; I25.10 Atherosclerotic heart disease of native coronary artery without angina pectoris; I10 Essential (primary) hypertension; K21.9 Gastro-esophageal reflux disease without esophagitis; I25.2 Old myocardial infarction; G47.33 Obstructive sleep apnea (adult) (pediatric); R91.8 Other nonspecific abnormal finding of lung field; Z20.828 Contact with and (suspected) exposure to other viral communicable diseases; Z98.61 Coronary angioplasty status; Z79.82 Long term (current) use of aspirin; Z79.4 Long term (current) use of insulin; Z79.51 Long term (current) use of inhaled steroids; Z86.73 Personal history of transient ischemic attack (TIA), and cerebral infarction without residual deficits; Z86.718 Personal history of other venous thrombosis and embolism; Z87.891 Personal history of nicotine dependence; Z82.49 Family history of ischemic heart disease and other diseases of the circulatory system; Z79.899 Other long term (current) drug therapy; Z88.1 Allergy status to other antibiotic agents; Z88.8 Allergy status to other drugs, medicaments and biological substances; Z23 Encounter for immunization
CPT/HCPCS: 36415; 71045; 71046; 71275; 80053; 82803; 82962; 83880; 84484; 85025; 85379; 85610; 85652; 85730; 86140; 87040; 87077; 87150; 87186; 90471; 90686; 93005; 93010; 94640; 96374; 96375; 99285; 0241U; C9803; G0008; J0456; J0696; J1100; J1650; J1815; J2920; J3490; J7060; S0119